=== PATIENT | male | born 1955 | race Caucasian/White ===

== ENCOUNTER 2020-04-10 13:53 | Inpatient (IN) | payer OTHER ==
--- NOTE | 2020-04-10 15:13 | RAD REPORT ---
EXAM DESCRIPTION: RAD - Chest Single View - 04/10/2020 2:40 pm CLINICAL HISTORY: MALAISE COMPARISON: None TECHNIQUE: AP portable chest image was obtained 04/10/2020 2:40 pm . FINDINGS: Extensive interstitial opacification is present with no comparison to establish baseline. This may all be chronic fibrotic change. Concurrent interstitial edema or infiltrate would be possibl e particularly in the left base. Medial retrocardiac left base is limited. Heart and vasculature are normal. No measurable pleural effusion and no pneumothorax. No acute bony abnormality seen. No acute aortic findings suspected. IMPRESSION: Extensive interstitial opacification pattern on a baseline examination. Current presentation could be all fibrosis, interstitial edema/ infiltrate or a combination.
[2020-04-10 16:09] LABS: Absolute Lymphocytes (CBC) 0.2 K/uL (0.7-4.9); Basophils % 0.1 % (0-1.3); Hematocrit 40.6 % (39.6-49.0); Lymphocytes % 1.8 % (15.3-44.8); MPV 9.7 fL (7.6-11.3); RBC Red Blood Cell Count 4.61 M/uL (4.33-5.43)
[2020-04-10 16:18] LABS: Protime INR 1.3
[2020-04-10 16:26] LABS: Urine Bacteria <20 /HPF (NONE SEEN); Urine RBC <5 /HPF (NONE SEEN)
[2020-04-10 17:01] LABS: Albumin 1.8 g/dL (3.4-5.0); Bilirubin Total 3.6 mg/dL (0.2-1.0); CKMB Creatine Kinase MB 1.6 ng/mL (0.3-3.6); Protein, Total 6.5 g/dL (6.4-8.2); Troponin (Emerg Dept Use Only) 0.22 ng/mL (0.0-0.045)
[2020-04-10 17:03] LABS: Urine Blood 1+ (NEG); Urine Glucose NEGATIVE (NEG); Urine Protein 1+ (NEG)
[2020-04-10 17:28] LABS: Phosphorus 1.8 mg/dL (2.5-4.9)
--- NOTE | 2020-04-10 17:36 | RAD REPORT ---
EXAM DESCRIPTION: CT - Chest For Pe Angio - 04/10/2020 5:22 pm CLINICAL HISTORY: SWELLING COMPARISON: Chest Single View dated 04/10/2020 TECHNIQUE: Dynamically enhanced 3 mm thick images of the chest were obtained during administration o f approximately 150mL Isovue 370 IV contrast. Coronal and oblique MIP reconstruction images were gene rated and reviewed. Exam utilizes a protocol to evaluate the pulmonary arterial tree. All CT scans are performed using dose optimization technique as appropriate and may include automated exposure control or mA/KV adjustment according to patient size. FINDINGS: No pulmonary emboli are identified. The aorta as imaged shows no acute or suspicious finding. Cardiomegaly present without pericardial ef fusion. Large bilateral pleural effusions are present. There is partial atelectasis of each lower lobe. Groun d-glass opacification in the upper lobes is most likely edema rather than infiltrate. No pneumothorax . No focal consolidation or mass the lung parenchyma seen. No mediastinal or hilar suspicious masses. No chest wall masses or abnormal axillary lymphadenopathy. IMPRESSION: No pulmonary emboli identified. Large bilateral pleural effusions with partial atelectasis of each lower lobe. Alveolar edema changes evident in each upper lobe.
--- NOTE | 2020-04-10 17:43 | RAD REPORT ---
EXAM DESCRIPTION: CT - Abdomen Pelvis W Contrast - 04/10/2020 5:22 pm CLINICAL HISTORY: SWELLING COMPARISON: No comparisons TECHNIQUE: Biphasic, helical CT imaging of the abdomen and pelvis was performed following 100 ml non -ionic IV contrast. No oral contrast given. All CT scans are performed using dose optimization technique as appropriate and may include automated exposure control or mA/KV adjustment according to patient size. FINDINGS: Pleural effusions and cardiomegaly detailed in separate CT chest report. No focal liver lesions identified. No portal vein abnormality seen. No pancreatic abnormality seen. N o focal splenic abnormality. Accessory splenic nodule is seen. Gallbladder is contracted. Gallstones can be occult. No biliary tree dilatation identified. Symmetric renal function is present. No pyelonephritis or solid mass lesion. Patient has multiple tasneem ateral renal cysts. Prominent distention of the urinary bladder is seen. There is bilateral hydroneph rosis the probably functional from the dilated bladder. No asymmetric bladder wall thickening or mass identified. No bladder calculi or obstructing ureteral calculi. No adrenal abnormalities. A large amount of fluid is present distending the stomach. No gastric wall mass identified. Mild enha ncement seen in nonthickened duodenal bulb and proximal C-loop. There is circumferential wall thicken ing throughout much of the small bowel. Loops of colon also show areas of nonspecific wall thickening . This is most pronounced in the sigmoid colon and proximal rectum. Distal rectum is distended. Moderately large volume of ascites is present. Omental thickening is present. Intraperitoneal free ai r is present. Quantity is not large. Source for the free air is not clearly evident from the examinat ion. No pneumatosis. No bulky lymphadenopathy. Patient has pronounced fluid retention in the subcuta neous fatty tissues. No suspicious bony findings. IMPRESSION: Intraperitoneal free air. There is no history of peritoneal dialysis or intraperitoneal procedure. No gastric ulceration or mass. No colon mass identified. Site of perforation is not identifiable. Large volume of ascites. There is prominent wall thickening throughout much of the bowel. This is mos t pronounced in the sigmoid colon. Bowel changes may be due to electrolyte imbalance and cardiac dysf unction. Enteritis is possible as well. Dilated urinary bladder without obstructing mass identified. There is resulting bilateral hydronephro sis that is likely functional. Renal function is symmetric. Anasarca
[2020-04-10] MEDS ORDERED: KCL 20 MEQ/100 mL IVPB 20 MEQ/100 ML BAG IV ONE (17:56)
[2020-04-10] MEDS ORDERED: D50W 50 ML IV ONE (17:58)
[2020-04-10] MEDS ORDERED: POTASSIUM PHOS IN 0.9 % NACL 15 MMOL/250 ML BAG IV ONE (18:00)
[2020-04-10] MEDS ORDERED: POTASSIUM CL IV SCH ×2 (18:00→19:00)
[2020-04-10] MEDS ORDERED: D5 NS IV SCH ×2 (18:00→19:00)
[2020-04-10 18:23] LABS: Anisocytosis 1+; Blood Morphology Comment NOTED (NOT SEEN); Platelet Estimate ADEQ; Poikilocytosis 1+; White Blood Cell Scan OK (OK)
[2020-04-10] MEDS ORDERED: LIDOCAINE VISCOUS 2% SOLN 15 ML UDC ONE ×2 (18:38→20:10)
[2020-04-10] MEDS ORDERED: PIPER/TAZO/NS 3.375gm 3.375 GM/100 ML BAG ONE (19:48)
--- NOTE | 2020-04-10 21:25 | EDPHYS ---
Physician Documentation [facility] Name: Juan Alarcon Age: 64 yrs Sex: Male : 1955 Arrival Date: 04/10/2020 Time: 13:55 Bed 23 Private MD: ED Physician Gregor Garcia HPI: 04/10 15:53 This 64 yrs old Male presents to ER via EMS with complaints of swelling, snw weakness. 15:53 Began swelling in lower extremities and belly 2 weeks ago, feels generally weak. Began snw having diarrhea. Pt has not been to PCP, no routine care. States he was told he had CHF by "on-line Doctor". Pt denies smoking, drinking, denies OTC or rx medications and has never had surgery. Pt denies allergies to medications. Onset: The symptoms/episode began/occurred gradually, 2 week(s) ago, and became worse and became persistent. Severity of symptoms: At their worst the symptoms were severe in the emergency department the symptoms are unchanged. It is unknown whether or not the patient has had similar symptoms in the past. The patient has not recently seen a physician, and does not have an established primary care provider. Historical: - Allergies: 14:02 No Known Allergies; ph - Home Meds: 14:02 None [Active]; ph - PMHx: 14:02 CHF; ph - Immunization history:: Flu vaccine is up to date. - Social history:: Smoking status: Patient denies any tobacco usage or history of. Patient/guardian denies using alcohol. ROS: 15:53 Constitutional: Negative for fever, chills, and weight loss, Eyes: Negative for injury, snw pain, redness, and discharge, ENT: Negative for injury, pain, and discharge, Neck: Negative for injury, pain, and swelling, Cardiovascular: Negative for chest pain, palpitations, and edema, Respiratory: Negative for shortness of breath, cough, wheezing, and pleuritic chest pain. 15:53 Back: Negative for injury and pain, : Negative for injury, bleeding, discharge, and swelling. 15:53 Skin: Negative for injury, rash, and discoloration, Neuro: Negative for headache, weakness, numbness, tingling, and seizure, Psych: Negative for depression, anxiety, suicide ideation, homicidal ideation, and hallucinations. 15:53 Abdomen/GI: Positive for diarrhea, abdominal distension. 15:53 MS/extremity: Positive for swelling. Exam: 15:49 Constitutional: This is a well developed, well nourished patient who is awake, alert, snw and in no acute distress. Head/Face: Normocephalic, atraumatic. Eyes: Pupils equal round and reactive to light, extra-ocular motions intact. Lids and lashes normal. Conjunctiva and sclera are non-icteric and not injected. Cornea within normal limits. Periorbital areas with no swelling, redness, or edema. ENT: Nares patent. No nasal discharge, no septal abnormalities noted. Tympanic membranes are normal and external auditory canals are clear. Oropharynx with no redness, swelling, or masses, exudates, or evidence of obstruction, uvula midline. Mucous membranes moist. Neck: Trachea midline, no thyromegaly or masses palpated, and no cervical lymphadenopathy. Supple, full range of motion without nuchal rigidity, or vertebral point tenderness. No Meningismus. Chest/axilla: Normal chest wall appearance and motion. Nontender with no deformity. No lesions are appreciated. Cardiovascular: Irregularly irregular rate and rhythm with a S1, S2 and S3. + gallop, murmur, no noted rubs. mild JVD. No pulse deficits. + lower ext edema Respiratory: Lungs have equal breath sounds bilaterally, clear to auscultation and percussion. No rales, rhonchi or wheezes noted. No increased work of breathing, no retractions or nasal flaring. Abdomen/GI: Soft, non-tender, with normal bowel sounds. Mild distension without tympany. No guarding or rebound. No evidence of tenderness throughout. Back: No spinal tenderness. No costovertebral tenderness. Full range of motion. Skin: Warm, dry with normal turgor. Ashen color with no areas of petechiae, areas to left lower leg of small skin avulsions, pedal edema with mild evidence of cellulitis to lower extremities. MS/ Extremity: Pulses equal, no cyanosis. Neurovascular intact. Full, normal range of motion. Neuro: Awake and alert, GCS 15, oriented to person, place, time, and situation. Cranial nerves II-XII grossly intact. Motor strength 5/5 in all extremities. Sensory grossly intact. Cerebellar exam normal. Normal gait. Psych: Awake, alert, with orientation to person, place and time. Behavior, mood, and affect are within normal limits. Vital Signs: 13:57 BP 156 / 83; Pulse 89; Resp 16; Pulse Ox 99% on R/A; Weight 52.16 kg; Height 5 ft. 8 ph in. (172.72 cm); Pain 0/10; 14:15 Temp 97.1(TE); ph 15:48 BP 138 / 82; Pulse 86; Resp 16; Pulse Ox 99% on R/A; mt 17:00 BP 157 / 90; Pulse 91; Resp 18; Pulse Ox 99% on R/A; ph 18:08 BP 171 / 92; Pulse 104; Resp 19; Temp 98.4(O); Pulse Ox 98% on R/A; mt 19:28 BP 131 / 88; Pulse 96; Resp 16; Pulse Ox 99% on R/A; ph 20:20 BP 133 / 93; Pulse 104; Resp 17 S; Pulse Ox 100% on R/A; ca1 21:20 BP 119 / 84; Pulse 98; Resp 17 S; Pulse Ox 100% on R/A; ca1 22:09 BP 126 / 71; Pulse 94; Resp 16 S; Pulse Ox 96% on R/A; ca1 13:57 Body Mass Index 17.49 (52.16 kg, 172.72 cm) ph MDM: 14:09 Patient medically screened. eron 17:48 ED course: MELD score = 15 pts, 6.0% 3 mo mortality. snw 18:00 Data reviewed: vital signs, nurses notes. Data interpreted: Pulse oximetry: on room air snw is 99 %. Interpretation: normal. Counseling: I had a detailed discussion with the patient and/or guardian regarding: the historical points, exam findings, and any diagnostic results supporting the discharge/admit diagnosis, the presence of at least one elevated blood pressure reading (>120/80) during this emergency department visit, lab results, radiology results, the need to transfer to another facility, for higher level of care, [facility] does not immediately have the required specialist. Response to treatment: There is no appreciated change of the patient's symptoms at this time. 19:13 Physician consultation: Alirio Key MD was called at 19:13, was contacted at 19:13, snw regarding consult, patient's condition, need to come to ED to see patient, and will see patient in ED, shortly. 19:50 Physician consultation: Alirio Key MD in the emergency department to see patient at snw 19:40. 20:08 Physician consultation: Dr Black was called at 19:30, was contacted at 20:09, regarding snw regarding transfer, to [facility]. Dr. Black and ORLANDO Chase do not feel pt needs ICU at this time. Appropriate level of care decided as IMU. [facility] will call back.. 21:07 ED course: attempts to transfer to four facilities has failed. Will admit here. Cesar Perez NP given report. Admission will go to Dr. Zheng.. 04/10 13:56 Order name: glucometer results - FOR PT WITH NO ID; Complete Time: 14:25 mt 04/10 14:27 Order name: Urine Microscopic Only; Complete Time: 16:27 snw 04/10 14:27 Order name: Urine Culture [facility] 04/10 15:28 Order name: T\\T\\S; Complete Time: 17:26 snw 04/10 15:28 Order name: D-Dimer; Complete Time: 16:29 snw 04/10 15:28 Order name: C-Reactive Protein; Complete Time: 17:03 snw 04/10 15:28 Order name: Amylase, Serum; Complete Time: 17:03 snw 04/10 15:28 Order name: Basic Metabolic Panel; Complete Time: 17:03 w 04/10 15:28 Order name: Blood Culture Adult (2) [facility] 04/10 15:28 Order name: CBC with Diff; Complete Time: 18:25 snw 04/10 15:28 Order name: Ckmb; Complete Time: 17:03 snw 04/10 15:28 Order name: CPK; Complete Time: 17:03 snw 04/10 15:28 Order name: Lactate; Complete Time: 16:41 snw 04/10 15:28 Order name: LFT's; Complete Time: 17:03 snw 04/10 15:28 Order name: Lipase; Complete Time: 17:03 w 04/10 15:28 Order name: Procalcitonin; Complete Time: 17:29 snw 04/10 15:28 Order name: Protime (+inr); Complete Time: 16:29 snw 04/10 15:28 Order name: Ptt, Activated; Complete Time: 16:29 snw 04/10 15:28 Order name: Troponin (emerg Dept Use Only); Complete Time: 17:03 snw 04/10 15:35 Order name: Urine Dipstick--Ancillary (enter results); Complete Time: 17:03 bd 04/10 17:08 Order name: Add On-Lab bd 04/10 17:12 Order name: Phosphorus; Complete Time: 22:26 EDMS 04/10 17:12 Order name: LDL, Direct; Complete Time: 22:26 EDMS 04/10 17:12 Order name: Alpha Fetoprotein-Tumor Marker EDMS 04/10 17:32 Order name: Add On-Lab snw 04/10 17:33 Order name: Lactic Dehydrogenase; Complete Time: 22:26 EDMS 04/10 17:57 Order name: SARS-COV-2 RT PCR; Complete Time: 17:59 EDMS 04/10 14:27 Order name: Urine Dipstick-Ancillary (obtain specimen); Complete Time: 15:31 snw 04/10 14:27 Order name: Chest Single View XRAY; Complete Time: 15:19 snw 04/10 15:28 Order name: Accucheck; Complete Time: 15:30 snw 04/10 16:29 Order name: CT Chest For PE Angio; Complete Time: 17:38 snw 04/10 16:29 Order name: CT Abd/Pelvis - IV Contrast Only; Complete Time: 17:50 snw 04/10 18:23 Order name: CBC Smear Scan; Complete Time: 18:25 EDMS 04/10 18:34 Order name: ABO/RH no charge; Complete Time: 18:34 EDMS 04/10 22:19 Order name: Magnesium; Complete Time: 22:26 EDMS 04/11 00:01 Order name: Glucose, Ancillary Testing; Complete Time: 00:08 EDMS 04/11 00:16 Order name: Troponin I EDMS 04/11 02:10 Order name: Glucose, Ancillary Testing EDMS 04/11 03:42 Order name: Protime (+INR) EDMS 04/11 03:51 Order name: CBC with Automated Diff EDMS 04/11 04:10 Order name: Comprehensive Metabolic Panel EDMS 04/11 04:10 Order name: Phosphorus EDMS 04/11 04:10 Order name: Magnesium EDKS 04/11 04:31 Order name: Glucose, Ancillary Testing EDKS 04/11 08:17 Order name: Glucose, Ancillary Testing EDKS 04/11 09:35 Order name: US EDKS 04/11 09:47 Order name: T4 Free EDKS 04/11 09:47 Order name: Thyroid Stimulating Hormone EDKS 04/11 10:04 Order name: Transferrin Sat/Iron Binding EDKS 04/11 10:04 Order name: Ferritin EDKS 04/11 10:05 Order name: Vitamin B12 Level EDKS 04/11 10:28 Order name: Glucose, Ancillary Testing EDKS 04/11 12:20 Order name: Glucose, Ancillary Testing EDKS 04/11 12:26 Order name: Fecal Leukocyte Stain EDKS 04/10 15:28 Order name: Cardiac monitoring; Complete Time: 15:31 snw 04/10 15:28 Order name: EKG - Nurse/Tech; Complete Time: 15:45 snw 04/10 15:28 Order name: IV Saline Lock - Large Bore; Complete Time: 15:31 snw 04/10 15:28 Order name: Labs collected and sent; Complete Time: 15:31 snw 04/10 15:28 Order name: O2 Per Protocol; Complete Time: 15:31 snw 04/10 15:28 Order name: O2 Sat Monitoring; Complete Time: 15:31 snw 04/10 17:28 Order name: Labs - recollect needed: collect tiger top blood tube; Complete Time: 17:37 bd 04/10 18:01 Order name: VS Recheck; Complete Time: 18:13 snw 04/10 18:01 Order name: Misc. Order: get pt in a gown please; Complete Time: 18:07 snw 04/10 18:01 Order name: NPO; Complete Time: 18:07 snw 04/10 18:11 Order name: Metzger; Complete Time: 20:19 snw 04/10 18:12 Order name: NG Tube; Complete Time: 20:19 snw EC:45 Rate is 100 beats/min. Rhythm is irregularly irregular. QRS [place] is Normal. QRS snw interval is prolonged. ST Segment is depressed in leads V5, V6. Clinical impression: Atrial Fibrillation. Administered Medications: 17:40 Drug: D50W 25 ml Route: IVP; Site: left antecubital; ph 19:29 Follow up: Response: No adverse reaction ph 18:47 Drug: D5-NS with KCL 40 mEq/L 1000 ml Route: IV; Rate: 250 ml/hr; Site: left ph antecubital; 21:55 Follow up: Response: No adverse reaction; IV Status: Infusion continued upon admission ca1 23:00 Follow up: Response: No adverse reaction; IV Status: Completed infusion; IV Intake: rr5 1000ml 18:47 Drug: Potassium Phosphate 15 mmol Route: IV; Rate: calculated rate; Site: right forearm;ph 21:56 Follow up: Response: No adverse reaction; IV Status: Infusion continued upon admission ca1 18:48 Drug: Potassium Chloride 20 mEq Route: IV; Rate: calculated rate; Site: left ph antecubital; 21:00 Follow up: Response: No adverse reaction; IV Status: Completed infusion ca1 19:48 Drug: Zosyn 3.375 grams Route: IVPB; Infused Over: 60 mins; Site: right forearm; ca1 20:50 Follow up: Response: No adverse reaction; IV Status: Completed infusion ca1 Disposition: 04/12 10:55 Co-signature as Attending Physician, Gregor Garcia MD I agree with the assessment and [facility] plan of care. Disposition: 04/10/20 21:24 Hospitalization ordered by Truong Zheng for Inpatient Admission. Preliminary diagnosis are Hypoglycemia, unspecified, Hypokalemia, Hypophosphatemia, Hypoalbuminemia, Liver disease, unspecified, Small peritoneal air, Pleural effusion in conditions classified elsewhere. - Bed requested for [facility] ER HOLD. - Status is Inpatient Admission. iw - Condition is Fair. - Problem is new. - Symptoms are unchanged. Signatures: Dispatcher [employer] EDMS [place] Rizzo Corey, MD MD cha Waters, Shelly, COMMUNICATION ASSISTANT-C COMMUNICATION ASSISTANT-Csnw Karen Sullivan RN RN iw Attema, Lee, FNP-C COMMUNICATION ASSISTANT-Cla1 Angy Jones RN RN ph Garcia, Cindy, RN RN Sandi Rush RN RN ca1 Roque, Raymond RN [id number] Corrections: (The following items were deleted from the chart) 04/10 14:28 14:27 UA MICROSCOPIC+U.LAB.BRZ ordered. EDMS EDMS 15:31 15:28 BILIRUBIN, DIRECT+C.LAB.BRZ ordered. EDKS EDMS 16:58 14:27 CORONAVIRUS+MR.LAB.BRZ ordered. EDKS EDMS 21:25 21:07 ED course: attempts to transfer to four facilities has failed. Will admit here. snw Cesar Perez NP given report. Admission will go to Dr. Leyva.. [facility] 21:25 21:24 Hospitalization Ordered by Yevgeniy Leyva for Inpatient Admission. Preliminary sn diagnosis is Hypoglycemia, unspecified; Hypokalemia; Hypophosphatemia; Hypoalbuminemia; Liver disease, unspecified; Small peritoneal air; Pleural effusion in conditions classified elsewhere. Bed requested for Telemetry/MedSurg (Inpatient). Status is Inpatient Admission. Condition is Fair. Problem is new. Symptoms are unchanged. [facility] 21:37 21:25 04/10/2020 21:24 Hospitalization Ordered by Truong Zheng DO for Inpatient snw Admission. Preliminary diagnosis is Hypoglycemia, unspecified; Hypokalemia; Hypophosphatemia; Hypoalbuminemia; Liver disease, unspecified; Small peritoneal air; Pleural effusion in conditions classified elsewhere. Bed requested for Telemetry/MedSurg (Inpatient). Status is Inpatient Admission. Condition is Fair. Problem is new. Symptoms are unchanged. [facility] 21:59 21:37 04/10/2020 21:24 Hospitalization Ordered by Truong Zheng DO for Inpatient cg Admission. Preliminary diagnosis is Hypoglycemia, unspecified; Hypokalemia; Hypophosphatemia; Hypoalbuminemia; Liver disease, unspecified; Small peritoneal air; Pleural effusion in conditions classified elsewhere. Bed requested for Intensive Care Unit. Status is Inpatient Admission. Condition is Fair. Problem is new. Symptoms are unchanged. [facility] 04/11 13:18 04/10 21:59 04/10/2020 21:24 Hospitalization Ordered by Truong Zheng DO for Inpatient iw Admission. Preliminary diagnosis is Hypoglycemia, unspecified; Hypokalemia; Hypophosphatemia; Hypoalbuminemia; Liver disease, unspecified; Small peritoneal air; Pleural effusion in conditions classified elsewhere. Bed requested for [facility] ER HOLD. Status is Inpatient Admission. Condition is Fair. Problem is new. Symptoms are unchanged.
--- NOTE | 2020-04-10 21:25 | ER ---
Nurse's Notes [facility] Name: Juan Alarcon Age: 64 yrs Sex: Male : 1955 Arrival Date: 04/10/2020 Time: 13:55 Bed 23 Private MD: Diagnosis: Hypoglycemia, unspecified;Hypokalemia;Hypophosphatemia;Hypoalbuminemia;Liver disease, unspecified;Small peritoneal air;Pleural effusion in conditions classified elsewhere Presentation: 04/10 13:57 Chief complaint: EMS states: EMS called out for general weakness, pt reports that he ph has had diarrhea since Friday, felt weak and slid to floor, denies falling or injury, initial BGL 54, 15 G oral glucose giiven w/ no change, IV started and approx 125 mL D10 given, BGL upon arrival to ED 76, pt denies fever, abdominal pain, N/V or bloody stools. Coronavirus screen: Client denies travel out of the [place] in the last 14 days. diarrhea, fatigue, Client presents with at least one sign or symptom that may indicate coronavirus-19. Standard/surgical mask placed on the client. Ebola Screen: No symptoms or risks identified at this time. Initial Sepsis Screen: Does the patient meet any 2 criteria? No. Patient's initial sepsis screen is negative. Does the patient have a suspected source of infection? No. Patient's initial sepsis screen is negative. Risk Assessment: Do you want to hurt yourself or someone else? Patient reports no desire to harm self or others. Onset of symptoms was April 10, 2020. 13:57 Method Of Arrival: EMS: [facility] ph 13:57 Acuity: ETTA 3 ph 17:37 Acuity: ETTA 2 ph Historical: - Allergies: 14:02 No Known Allergies; ph - Home Meds: 14:02 None [Active]; ph - PMHx: 14:02 CHF; ph - Immunization history:: Flu vaccine is up to date. - Social history:: Smoking status: Patient denies any tobacco usage or history of. Patient/guardian denies using alcohol. Screenin:02 Abuse screen: Denies threats or abuse. Denies injuries from another. Nutritional ph screening: No deficits noted. Tuberculosis screening: No symptoms or risk factors identified. Fall Risk No fall in past 12 months (0 pts). No secondary diagnosis (0 pts). IV access (20 points). Ambulatory Aid- Crutches/Cane/Walker (15 pts). Gait- Weak (10 pts.). Mental Status- Oriented to own ability (0 pts). Total Leone Fall Scale indicates High Risk Score (45 or more points). Fall prevention measures have been instituted. Side Rails Up X 2 Placed Close to Nursing Station Frequent Obs/Assessments Occuring As available patient and family educated on Fall Prevention Program and Strategies. Assessment: 14:30 General: Appears in no apparent distress. comfortable, slender, unkempt, malnourished, ph Behavior is calm, cooperative, appropriate for age, Denies fever. Pain: Denies pain. Neuro: Level of Consciousness is awake, alert, obeys commands, Oriented to person, place, time, situation, Reports weakness. Cardiovascular: Capillary refill < 3 seconds in bilateral fingers Patient's skin is warm and dry. Edema is 1+ to left ankle and right ankle. Respiratory: Airway is patent Respiratory effort is even, unlabored, Respiratory pattern is regular, symmetrical, Denies cough, shortness of breath. GI: Reports diarrhea, Patient currently denies abdominal pain, bloody stool, nausea, vomiting. : Reports testicular swelling. Derm: Skin is fragile, is thin, Skin is jaundiced, multiple sores and bruises noted to bilateral legs and arms. Musculoskeletal: Circulation, motion, and sensation intact. Range of motion: intact in all extremities. 16:05 Reassessment: Patient appears in no apparent distress at this time. Patient and/or ph family updated on plan of care and expected duration. Pain level reassessed. Patient is alert, oriented x 3, equal unlabored respirations, skin warm/dry/pink. Pt resting quietly, awaiting lab and radiology results. 17:00 Reassessment: Patient appears in no apparent distress at this time. Patient and/or ph family updated on plan of care and expected duration. Pain level reassessed. Patient is alert, oriented x 3, equal unlabored respirations, skin warm/dry/pink. Reassessment: Patient denies pain at this time. 18:00 Reassessment: Patient appears in no apparent distress at this time. Patient and/or ph family updated on plan of care and expected duration. Pain level reassessed. Patient is alert, oriented x 3, equal unlabored respirations, skin warm/dry/pink. Pt resting quietly, denies pain or nausea, awaiting IV medications from lab. 19:31 Reassessment: Patient appears in no apparent distress at this time. Patient and/or ca1 family updated on plan of care and expected duration. Pain level reassessed. Patient is alert, oriented x 3, equal unlabored respirations, skin warm/dry/pink. 20:20 Reassessment: Patient appears in no apparent distress at this time. Patient and/or ca1 family updated on plan of care and expected duration. Pain level reassessed. Patient is alert, oriented x 3, equal unlabored respirations, skin warm/dry/pink. 21:20 Reassessment: Patient appears in no apparent distress at this time. Patient and/or ca1 family updated on plan of care and expected duration. Pain level reassessed. Patient is alert, oriented x 3, equal unlabored respirations, skin warm/dry/pink. 22:09 Reassessment: Patient appears in no apparent distress at this time. Patient is alert, ca1 oriented x 3, equal unlabored respirations, skin warm/dry/pink. Vital Signs: 13:57 BP 156 / 83; Pulse 89; Resp 16; Pulse Ox 99% on R/A; Weight 52.16 kg; Height 5 ft. 8 ph in. (172.72 cm); Pain 0/10; 14:15 Temp 97.1(TE); ph 15:48 BP 138 / 82; Pulse 86; Resp 16; Pulse Ox 99% on R/A; mt 17:00 BP 157 / 90; Pulse 91; Resp 18; Pulse Ox 99% on R/A; ph 18:08 BP 171 / 92; Pulse 104; Resp 19; Temp 98.4(O); Pulse Ox 98% on R/A; mt 19:28 BP 131 / 88; Pulse 96; Resp 16; Pulse Ox 99% on R/A; ph 20:20 BP 133 / 93; Pulse 104; Resp 17 S; Pulse Ox 100% on R/A; ca1 21:20 BP 119 / 84; Pulse 98; Resp 17 S; Pulse Ox 100% on R/A; ca1 22:09 BP 126 / 71; Pulse 94; Resp 16 S; Pulse Ox 96% on R/A; ca1 13:57 Body Mass Index 17.49 (52.16 kg, 172.72 cm) ph ED Course: 13:55 Patient arrived in ED. ph 13:57 Angy Jones, RN is Primary Nurse. ph 13:57 Blood Glucose: 76. mt 14:01 Triage completed. ph 14:02 Arm band placed on Patient placed in an exam room, on a stretcher. ph 14:03 Patient has correct armband on for positive identification. Bed in low position. Call ph light in reach. Side rails up X 1. Pulse ox on. NIBP on. Door closed. Noise minimized. Warm blanket given. 14:09 Teressa Samaniego FNP-C is PHCP. snw 14:09 Gregor Garcia MD is Attending Physician. snw 14:41 Chest Single View XRAY In Process Unspecified. EDMS 17:22 CT Chest For PE Angio In Process Unspecified. EDMS 17:22 CT Abd/Pelvis - IV Contrast Only In Process Unspecified. EDMS 17:51 initiated transfer to [facility]. bd 17:54 Inserted saline lock: 20 gauge in right forearm, using aseptic technique. Blood mt collected. 18:22 pt denied at [facility] due to no icu beds, per Arash Aguilar. bd 18:32 initiated transfer to [facility]. talked to Nisa Nino. bd 18:48 pt denied at [facility], due to no icu beds available per Nisa Nino. bd 18:52 Spoke with Cornelius to see if they could check at [facility]. He stated the tt3 services were only offered at the [facility] but would still call the [facility]. 18:56 Initiated transfer at [facility]. Stated they would check for beds and call back. tt3 19:32 [facility] called back to see why the pt needed ICU specifically. Checked with provider tt3 and explained reasoning to technical support coordinator. Stated she would pass the information along and call back. 19:50 Transfer Center Coordinator from [facility] called back to speak with jameson Larson, regarding the transfer request. 20:00 Coud inserted, using sterile technique, 16 Fr. Returned cloudy urine. To gravity ca1 drainage. by SHANE Wan Patient tolerated well. 20:19 NGT: inserted [address] of air over stomach, verified return of gastric ca1 contents, to intermittent suction. Returned gastric contents. Patient tolerated well. 21:18 Yevgeniy Leyva is Hospitalizing Provider. snw 21:24 Hospitalizing Provider role handed off by Yevgeniy Leyva snw 21:24 Truong Zheng DO is Hospitalizing Provider. snw 22:08 No provider procedures requiring assistance completed. Patient admitted, IV remains in ca1 place. 22:09 Report given to SHANE Wan. ca1 22:50 Primary Nurse role handed off by Angy Jones RN dm5 Administered Medications: 17:40 Drug: D50W 25 ml Route: IVP; Site: left antecubital; ph 19:29 Follow up: Response: No adverse reaction ph 18:47 Drug: D5-NS with KCL 40 mEq/L 1000 ml Route: IV; Rate: 250 ml/hr; Site: left ph antecubital; 21:55 Follow up: Response: No adverse reaction; IV Status: Infusion continued upon admission ca1 23:00 Follow up: Response: No adverse reaction; IV Status: Completed infusion; IV Intake: rr5 1000ml 18:47 Drug: Potassium Phosphate 15 mmol Route: IV; Rate: calculated rate; Site: right forearm;ph 21:56 Follow up: Response: No adverse reaction; IV Status: Infusion continued upon admission ca1 18:48 Drug: Potassium Chloride 20 mEq Route: IV; Rate: calculated rate; Site: left ph antecubital; 21:00 Follow up: Response: No adverse reaction; IV Status: Completed infusion ca1 19:48 Drug: Zosyn 3.375 grams Route: IVPB; Infused Over: 60 mins; Site: right forearm; ca1 20:50 Follow up: Response: No adverse reaction; IV Status: Completed infusion ca1 Intake: 23:00 IV: 1000ml; Total: 1000ml. rr5 Output: 20:27 Urine: 1000ml (Metzger); Total: 1000ml. ca1 22:14 Gastric: 200ml (NGT); Total: 1200ml. ca1 Outcome: 21:24 Decision to Hospitalize by Provider. snw 22:47 Admitted to ER Hold. Please see [facility] for further documentation. rr5 22:47 Condition: stable 22:47 Instructed on the need for admit. 04/11 13:18 Patient left the ED. iw Signatures: Dispatcher [employer] [facility] Tenorio Deana RN RN dm5 Samaniego, Teressa, TECHNICAL INSTRUCTOR-C TECHNICAL INSTRUCTOR-Csnw Karen Sullivan RN RN iw Angy Jones RN RN Jd, Baxter Savage Solano RN RN rr5 Sandi Rush RN RN ca1 Bernardino Bello tt3 Corrections: (The following items were deleted from the chart) 04/10 20:27 20:00 Coud inserted, using sterile technique, 16 Fr. Returned bloody urine. To gravity ca1 drainage. by SHANE Wan Patient tolerated well. ca1
--- NOTE | 2020-04-10 22:07 | P.HP ---
Certification for Inpatient Patient admitted to: Inpatient With expected LOS: >2 Midnights Patient will require the following post-hospital care: None Practitioner: I am a practitioner with admitting privileges, knowledge of patient current condition, hospital course, and medical plan of care. Services: Services provided to patient in accordance with Admission requirements found in Title 42 Section 412.3 of the Code of Federal Regulations <Cesar Perez - Last Filed: 04/10/20 21:58> Patient History Date of Service: 04/10/20 Primary Care Provider: None Reason for admission: Intraperitoneal free air History of Present Illness: 64-year-old male with questionable history of CHF presents emergency department for generalized weakness and diarrhea. Patient reports that since Friday he has had a significant amount of frequent diarrhea without mucus blood or pus. Patient reports today and he is feeling extremely weak and for that reason presented to the emergency department. Patient also noted that he is retaining fluid, states that this happens intermittently for the last 3 years and he had a telemedicine visit with physician who believed he had CHF. Patient reports intermittently taking Lasix at home for retention of fluid. Patient was worked up in the emergency department and found to have significant electrolyte abnormalities including potassium 2.0 phosphorus level 1.8, sodium 138. Magnesium level pending. Patient with some renal insufficiency creatinine 1.46 GFR 48. AST and ALT normal but total bili is 3.6 and direct bili is 3.0. Pro calcitonin elevated at 4.41 white blood cell count was 12.8. Troponin initially 0.22 D-dimer was elevated, provider ordered CT PE protocol and abdominal exam with contrast. PE protocol revealed large bilateral pleural effusions with partial atelectasis of each lower lobe, a CT abdomen pelvis revealed intraperitoneal free air with no identified site of perforation. Large volume ascites with prominent wall thickening throughout much of the bowel wall most pronounced in the sigmoid colon, radiologist suggest this could be related to electrolyte imbalance and cardiac dysfunction although enteritis as possible. General surgery and was called for intraperitoneal free air. Patient denies now or ever having any abdominal pain, on exam patient without any abdominal tenderness whatsoever. General surgery examined patient and reviewed CT scan, states patient does not need emergent surgical intervention and to be followed w ith serial abdominal exams. Due to severe electrolyte abnormalities and intraperitoneal free air patient will require ICU or IMU level of care, due to lack of beds transfer was initiated, emergency department attempted transferred to [facility], at [facility], Suk[facility] Jones who were all at capacity for ICU/ IMU and declined transfer. Case was discussed again with General Surgery and hospitalist attending, patient will be admitted to the intensive care unit for close monitoring and serial abdominal exams. When I saw the patient in the emergency department he was awake, alert, oriented x3. Patient with no abdominal pain or tenderness on exam. Patient does not appear septic at this time, lactic acid 1.6. Patient normotensive at this time. Will admit to the ICU for close monitoring and serial abdominal exams. - Past Medical/Surgical History -: CHF? 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 - Family History Family History: Reviewed- Non-Contributory - Social History Smoking Status: Never smoker Alcohol use: No CD- Drugs: No Caffeine use: Yes Place of Residence: Home <Cesar Perez - Last Filed: 04/10/20 21:58> Date of Service: 04/11/20 - Past Medical/Surgical History Diabetic: No <Truong Zheng - Last Filed: 04/11/20 08:22> Review of Systems General: Weakness, Malaise Cardiovascular: Edema, As per HPI <Cesar Perez - Last Filed: 04/10/20 21:58> Physical Examination - Physical Exam General: Alert, In no apparent distress, Oriented x3 HEENT: Atraumatic, Normocephalic, Other (Mucous membranes dry) Neck: Supple Respiratory: Diminished (Bilaterally), Dull, Crackles/rales (Bilateral) Cardiovascular: Normal S1 S2, Edema (Pitting edema including bilateral lower extremities all the way up including the level of the scrotum, edema of the abdominal wall), Irregular heart rate/rhythm (Mild tachycardia rate 105) Capillary refill: <2 Seconds Gastrointestinal: Normal bowel sounds, No tenderness, No masses, No rebound, No guarding, Ascites Musculoskeletal: Erythema (Erythema noted to the left knee), Tenderness (Tenderness left knee), Warmth (Left knee) Integumentary: No significant lesion Neurological: Normal speech, Normal strength at 5/5 x4 extr, Normal tone, Sensation intact Urinary: Metzger catheter - Studies Laboratory Data (last 24 hrs) 04/10/20 15:50: Phosphorus 1.8 L, LDL Cholesterol Direct 71 L 04/10/20 15:50: WBC 12.8 H, Hgb 13.5 L, Hct 40.6, Plt Count 224 04/10/20 15:50: Sodium 138, Potassium 2.0 L*, BUN 21 H, Creatinine 1.46 H, Glucose 58 L, Total Bilirubin 3.6 H, AST 21, ALT 8 L, Alkaline Phosphatase 173 H, Amylase 5 L, Lipase 20 L 04/10/20 15:50: PT 15.3 H, INR 1.30, APTT 30.7 <Cesar Perez - Last Filed: 04/10/20 21:58> - Studies Laboratory Data (last 24 hrs) 04/10/20 15:50: Phosphorus 1.8 L, Magnesium 2.4, LDL Cholesterol Direct 71 L 04/10/20 15:50: WBC 12.8 H, Hgb 13.5 L, Hct 40.6, Plt Count 224 04/10/20 15:50: Sodium 138, Potassium 2.0 L*, BUN 21 H, Creatinine 1.46 H, Glucose 58 L, Total Bilirubin 3.6 H, AST 21, ALT 8 L, Alkaline Phosphatase 173 H, Amylase 5 L, Lipase 20 L 04/10/20 15:50: PT 15.3 H, INR 1.30, APTT 30.7 <Truong Zheng - Last Filed: 04/11/20 08:22> Assessment and Plan - Plan Assessment Intraperitoneal free air Suspected acute on chronic CHF with volume overload and elevated troponin- unknown EF Elevated total and direct bili levels Acute kidney injury Hypoalbuminemia Hypophosphatemia Hypokalemia Plan Intraperitoneal free air: General surgery consulted, has seen and examined the patient. NG tube in place, NPO. Continue with serial abdominal exams, admitted to the intensive care unit. Continue Zosyn. DVT prophylaxis with SCDs. Appreciate further input from general surgery. Suspected acute on chronic CHF with volume overload and elevated troponin- unknown EF: Cardiology consult in place. Continue with albumin and Lasix at this time due to anasarca and hypoalbuminemia. Will trend troponins, cardiology consult in place. Elevated total and direct bili levels: Daily labs, patient may have some underlying liver pathology, possibly malignancy. Acute kidney injury: No baseline labs available, no reported history of chronic kidney disease. Continue with albumin/Lasix, nephrology consult in place. Hypoalbuminemia: Will give 25% albumin 150 mL x1 for now. Additional doses as needed. Daily labs. Hypophosphatemia: Phosphorus protocol in place Hypokalemia: Potassium protocol in place Discharge Plan: Home Plan to discharge in: Greater than 2 days - Advance Directives Does patient have a Living Will: No Does patient have a Durable POA for Healthcare: No - Code Status/Comfort Care Code Status Assessed: Yes (Full code) Critical Care: No Time Spent Managing Pts Care (In Minutes): 55 <Cesar Perez - Last Filed: 04/10/20 21:58> - Plan Case discussed at length with nurse practitioner. Agree with evaluation, assessment and plan of care. Patient with NG tube in place. Patient NPO. Will discuss further with surgery. Will also discuss further with pulmonology, cardiology and nephrology. Continue electrolyte IV Lasix. Please see progress note for details. <Truong Zheng - Last Filed: 04/11/20 08:22>
[2020-04-10 22:19] LABS: Magnesium 2.4 mg/dL (1.8-2.4)
[2020-04-10] MEDS ORDERED: ONDANSETRON 4 MG/2 ML VIAL IV PRN (22:22)
[2020-04-10] MEDS ORDERED: ALBUMIN HUMAN 25% 150 ML IV ONE (22:22)
[2020-04-10] MEDS ORDERED: GLUCAGON 1 MG/VIAL IV PRN (22:22)
[2020-04-10] MEDS ORDERED: MORPHINE 2 MG/ML SYR IV PRN (22:22)
[2020-04-10] MEDS ORDERED: FUROSEMIDE 40 MG/4 ML VIAL ONE (22:40)
[2020-04-10] MEDS ORDERED: ALBUMIN HUMAN 25% 100 ML IV ONE (22:40)
[2020-04-10] MEDS: FUROSEMIDE 40 MG/4 ML VIAL IV SCH (22:45)
[2020-04-10] MEDS ORDERED: ALBUMIN HUMAN 25% 50 ML IV ONE (23:42)
[2020-04-11] MEDS ORDERED: PIPER/TAZO/NS 3.375gm 3.375 GM/100 ML BAG IVPB SCH (01:00)
[2020-04-11 01:22] VITALS: BMI 17.4
[2020-04-11] MEDS ORDERED: PIPER/TAZO/NS 2.25gm 2.25 GM/50 ML BAG IV SCH ×2 (02:00→07:30)
[2020-04-11 03:41] LABS: Protime INR 1.43
[2020-04-11 03:43] LABS: MPV 9.6 fL (7.6-11.3)
[2020-04-11 03:47] LABS: Absolute Lymphocytes (CBC) 0.2 K/uL (0.7-4.9); Basophils % 0.3 % (0-1.3); Hematocrit 33.9 % (39.6-49.0); Lymphocytes % 1.6 % (15.3-44.8)
[2020-04-11 04:09] LABS: Albumin 2.1 g/dL (3.4-5.0); Bilirubin Total 3.2 mg/dL (0.2-1.0); Magnesium 2.2 mg/dL (1.8-2.4); Phosphorus 2.6 mg/dL (2.5-4.9); Potassium 2.1 mmol/L (3.5-5.1); Protein, Total 5.7 g/dL (6.4-8.2)
[2020-04-11] MEDS: KCL 20 MEQ/100 mL IVPB 20 MEQ/100 ML BAG IV SCH ×6 (06:02→20:26)
[2020-04-11] MEDS ORDERED: KCL 20 MEQ/100 mL IVPB 20 MEQ/100 ML BAG IV ONE ×5 (06:19→20:38)
[2020-04-11] MEDS ORDERED: NA CHLORIDE 0.9% 250 ML ONE (06:22)
--- NOTE | 2020-04-11 08:14 | P.PN ---
Subjective Date of Service: 04/11/20 Primary Care Provider: None Chief Complaint: Intraperitoneal free air Subjective: Other (Patient stable. Patient feels better. Diarrhea still noted.) Physical Examination - Vital Signs Temperature: 97.5 F Blood Pressure: 115/65 Pulse: 84 Respirations: 16 Pulse Ox (%): 100 - Physical Exam General: Alert, In no apparent distress, Oriented x3, Cooperative, Cachectic, Other (Muscle wasting to the face, torso and extremities. Patient appears malnourished.) HEENT: Atraumatic Neck: Supple Respiratory: Other (Diminished to the bases) Cardiovascular: Irregular heart rate/rhythm (Rate controlled) Gastrointestinal: Hypoactive, No tenderness, No masses, No rebound, No guarding, Distended (Some distention noted but soft) Musculoskeletal: No tenderness, No warmth Integumentary: Tenderness/swelling (Edema to the lower extremities appears improved.) Neurological: Normal speech, Normal strength at 5/5 x4 extr, Normal tone, Normal affect - Studies Laboratory Data (last 24 hrs) 04/10/20 15:50: Phosphorus 1.8 L, Magnesium 2.4, LDL Cholesterol Direct 71 L 04/10/20 15:50: WBC 12.8 H, Hgb 13.5 L, Hct 40.6, Plt Count 224 04/10/20 15:50: Sodium 138, Potassium 2.0 L*, BUN 21 H, Creatinine 1.46 H, Glucose 58 L, Total Bilirubin 3.6 H, AST 21, ALT 8 L, Alkaline Phosphatase 173 H, Amylase 5 L, Lipase 20 L 04/10/20 15:50: PT 15.3 H, INR 1.30, APTT 30.7 Medications List Reviewed: Yes Assessment & Plan Discharge Plan: Home Plan to discharge in: Greater than 2 days Physician Review Additional Text: Assessment Diarrhea, weakness, ascites secondary to colitis complicated with intraperitoneal free air noted on CT scan without identifiable perforation etiology unknown need to rule out cancer, liver disease, other Large bilateral pleural effusion with edema to the lower extremity and ascites suspect acute on chronic systolic CHF Atrial fibrillation rate controlled Elevated troponin likely related to above, ischemic demand Elevated bilirubin suspect underlying liver disease Acute renal injury with electrolyte abnormalities including hypokalemia, hypophosphatemia, hypoalbumenia Moderate protein malnutrition Anemia likely of chronic disease Plan: Diarrhea, weakness, ascites secondary to colitis complicated with intraperitoneal free air noted on CT scan without identifiable perforation etiology unknown need to rule out cancer, liver disease, other: Patient stable at this time. Patient was to be transferred last night to high-level facility to further evaluate but no beds available and multiple hospitals. Patient was seen by surgery last night. No intervention needed at this time. Blood, urine, stool cultures obtained. Patient started on IV Zosyn to cover for possible infection. Inflammatories markers elevated. Will obtain FELY, HIV, hepatitis panel, tsh, and other electrolytes. COVID 19 test negative. Will discuss further with surgery. No abdominal pain noted at this time. Will obtain abdominal ultrasound and echocardiogram to further evaluate. Cardiology, nephrology and pulmonology also consulted to address other medical issues. Continue IV Lasix. Will continue to monitor and assess. Large bilateral pleural effusion with edema to the lower extremity and ascites suspect acute on chronic systolic CHF: Continue IV Lasix. Edema to the lower extremities improved. Patient not requiring any oxygen. Overall stable. Await echocardiogram. Will discuss further with pulmonology and Cardiology. Atrial fibrillation rate controlled: Will check EKG. Will discuss further with cardiology. Patient may require anti coagulation therapy but will discuss with Cardiology 1st. Will start with DVT prophylaxis. Elevated troponin likely related to above, ischemic demand: Will obtain echocardiogram. Will discuss with cardiology. Elevated bilirubin suspect underlying liver disease: Will obtain abdominal ultrasound to further evaluate. Will also obtain FELY, HIV and hepatitis panel. Will discuss with GI. Acute renal injury with electrolyte abnormalities including hypokalemia, hypophosphatemia, hypoalbumenia: Nephrology consulted. Electrolyte protocol in place. Continue to monitor and adjust appropriately. Moderate protein malnutrition: Will consult dietary to further evaluate. Anemia likely of chronic disease: Will check lab. Will monitor this closely. Time Spent Managing Pts Care (In Minutes): 55
--- NOTE | 2020-04-11 08:21 | P.CNS ---
Date of Consult: 04/11/20 Reason for Consult: severe hypokalemia, volume overload, ARY. Requesting Physician: Cesar Perez Primary Care Provider: None Chief Complaint: Intraperitoneal free air History of Present Illness: 64 y o male pt with hx of CHF and who is one oral lasix at home admitted for management of weakness and diarrhea, found to have significant lab abnormalities of hypokalemia with potassium of 2.1, ARY with creatinine of 1.4 and leg edema. He had reported diarrhea of 4 days duration and has been feeling unwell. No report of vomiting, nausea, dizziness, cramps, headache or fever. No cough, sob or overt abd pain. He was found to have intraperitoneal free air raising concerns for perforation but no lesions found so far. He also has ascites and pleural effusion. He was started on lasix IV for pedal edema and replacement protocol for his hypokalemia. nephrology consult was placed for management of his electrolyte and kidney function abnormalities. Allergies No Known Allergies Allergy (Unverified 04/10/20 22:22) Home medications list reviewed: Yes Home Medications: NK [No Home Meds] 04/11/20 - Past Medical/Surgical History Diabetic: No -: CHF? 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 - Social History Alcohol use: No CD- Drugs: No Caffeine use: Yes Place of Residence: Home Review of Systems General: Malaise Gastrointestinal: Diarrhea, Other (poor appetite.) Neurological: Weakness Physical Examination Temp Pulse Resp BP Pulse Ox 97.5 F 84 16 115/65 100 04/11/20 08:14 04/11/20 08:14 04/11/20 08:14 04/11/20 08:14 04/11/20 08:14 General: Alert, Oriented x3, Cachectic HEENT: Atraumatic, Normocephalic Neck: Supple Respiratory: Clear to auscultation bilaterally Cardiovascular: Regular rate/rhythm, Normal S1 S2 Gastrointestinal: Distended Musculoskeletal: Swelling (both legs.) Neurological: Normal speech, Cranial nerves 3-12 intact Laboratory Data (last 24 hrs) 04/10/20 15:50: Phosphorus 1.8 L, Magnesium 2.4, LDL Cholesterol Direct 71 L 04/10/20 15:50: WBC 12.8 H, Hgb 13.5 L, Hct 40.6, Plt Count 224 04/10/20 15:50: Sodium 138, Potassium 2.0 L*, BUN 21 H, Creatinine 1.46 H, Glucose 58 L, Total Bilirubin 3.6 H, AST 21, ALT 8 L, Alkaline Phosphatase 173 H, Amylase 5 L, Lipase 20 L 04/10/20 15:50: PT 15.3 H, INR 1.30, APTT 30.7 Conclusions/Impression: #Severe hypokalemia-Etiology is deemed due to renal wasting from diuretics and GI loss from diarrhea. repletion has been started. we will monitor closely and continue aggressive repletion. magnesium is normal at 2.4. #CHF-Based on self reported issues as per pt. Lasix has been started. we will continue to monitor. #Ascites-Etiology is yet to be determined. we will continue routine monitoring for now. ABd U to be reviewed. #Hypophosphatemia- Phosphorus is low at 1.8. we will continue aggressive replet ion and monitor. #Diarrhea-Infectious vs inflammatory in origin. Pending labs for work up. we will continue present care. No report of laxative use. #ARY-Creatinine was 1.46 on admission but this is better today at 1.24. Deemed prerenal in origin. we will continue to avoid nephrotoxins and dose meds for eGFR. Review of renal US at bedside is concerning for increased echogenicity. we will review final report. Physician Review: Patient Assessed, Agree with Above Assessment and Plan
[2020-04-11] MEDS: FUROSEMIDE 40 MG/4 ML VIAL IV SCH ×2 (08:22→17:52)
[2020-04-11] MEDS ORDERED: FUROSEMIDE 40 MG/4 ML VIAL ONE ×2 (08:31→17:55)
[2020-04-11] MEDS ORDERED: POTASSIUM PHOS IN 0.9 % NACL 15 MMOL/250 ML BAG IV ONE (09:14)
--- NOTE | 2020-04-11 09:34 | RAD REPORT ---
EXAM DESCRIPTION: US - Abdomen Exam Complete - 04/11/2020 9:18 am CLINICAL HISTORY: Ascites, Intraperitoneal free air, colitis, ARY COMPARISON: Abdomen Pelvis W Contrast dated 04/10/2020 FINDINGS: Gallbladder size is normal. Gallbladder wall thickening is present possibly a secondary re sponse to systemic disease. Pericholecystic fluid is present as part of the ascites that was detailed on the prior CT study. Small gallbladder wall polyps are evident. No measurable sludge or free galls tones. Common bile duct is normal with no common duct stone identified. No focal liver lesion identified. No capsule nodularity identified. Doppler evaluation shows no nikita l vein abnormality. The pancreas is normal. No splenomegaly or focal splenic finding. No hydronephrosis or suspicious mass in either kidney. Bilateral simple renal cysts are identified. Aorta and IVC show no suspicious findings. Ascites is present. No bulky lymphadenopathy. IMPRESSION: Gallbladder wall thickening without stones or sludge identifiable. This is suspected to be chronic wall thickening or secondary response to systemic disease rather than an acute gallbladder process. No hydronephrosis or suspicious renal finding. Benign cysts are identified. No focal lesion in a normal size liver. Ascites as detailed on the CT study.
[2020-04-11 09:47] LABS: Thyroid Stimulating Hormone 2.78 uIU/mL (0.360-3.740)
[2020-04-11] MEDS: D50W 25 GM/50 ML SYRINGE IV PRN ×4 (10:57→22:51)
[2020-04-11] MEDS ORDERED: GLUCAGON 1 MG/VIAL ONE (11:06)
[2020-04-11] MEDS ORDERED: D50W 50 ML IV ONE ×3 (11:09→23:04)
--- NOTE | 2020-04-11 12:08 | P.CNS ---
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 No lung issues no history of hepatitis or alcohol use he is not short of breath as found ascites and bilateral pleural effusion denies any pulmonary complaint Allergies No Known Allergies Allergy (Unverified 04/10/20 22:22) Home Medications: NK [No Home Meds] 04/11/20 - Past Medical/Surgical History Diabetic: No -: CHF? 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 - Social History Alcohol use: No CD- Drugs: No Caffeine use: Yes Place of Residence: Home Review of Systems General: Weakness Cardiovascular: Edema (Bilateral) Gastrointestinal: Diarrhea Physical Examination Temp Pulse Resp BP Pulse Ox 97.5 F 84 16 115/65 100 04/11/20 08:20 04/11/20 08:22 04/11/20 08:20 04/11/20 08:22 04/11/20 08:20 General: Alert, Oriented x3 HEENT: Atraumatic Neck: Supple Respiratory: Clear to auscultation bilaterally Cardiovascular: Edema (2+ edema), Irregular heart rate/rhythm Gastrointestinal: Normal bowel sounds, Hypoactive Laboratory Data (last 24 hrs) 04/10/20 15:50: Phosphorus 1.8 L, Magnesium 2.4, LDL Cholesterol Direct 71 L 04/10/20 15:50: WBC 12.8 H, Hgb 13.5 L, Hct 40.6, Plt Count 224 04/10/20 15:50: Sodium 138, Potassium 2.0 L*, BUN 21 H, Creatinine 1.46 H, Glucose 58 L, Total Bilirubin 3.6 H, AST 21, ALT 8 L, Alkaline Phosphatase 173 H, Amylase 5 L, Lipase 20 L 04/10/20 15:50: PT 15.3 H, INR 1.30, APTT 30.7 - Problems (1) Pleural effusion Current Visit: Yes Status: Acute Plan: Patient is 64 years of age admitted with 2 week onset of lower extremity edema admission precipitated by diarrhea 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 He denies any cardiopulmonary problems no history of liver disease patient has ascites small bilateral pleural effusions is a cachectic looking trudi although the patient states that he has lost any weight recently labs reviewed x-rays reviewed there is no significant effusion on the chest x-ray echocardiogram is pending patient is hypoalbuminemic blood pressure stable mildly hypoxic no the pre-existing medical problems
[2020-04-11] MEDS ORDERED: ENOXAPARIN 40 MG/0.4 ML SQ SCH (17:00)
--- NOTE | 2020-04-11 17:20 | P.CNS ---
Date of Consult: 04/11/20 PC: I was asked to see this 64-year-old male in the emergency room due to intraperitoneal free air. HPC: Patient has been at home for the last week or so. Has been noticing he has been losing weight, and he has had some peripheral swelling. He has also had some diarrhea. He came to the emergency room for diagnosis and treatment. 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 No known allergies. SYS REVIEW: No cough, wheeze. Has a little bit short of breath he states. Has also noticed he has been losing weight. States he tries to eat but does not have much of an appetite. No real abdominal pain at all. Denies taking any over the counter analgesics. O/E cachectic-looking man, normotensive at the moment. HEENT: Nonicteric Chest: Chest movement equal bilaterally ABD: Distended, no guarding rebound, no peritoneal signs. LOCO: Intact DATA: CT scan shows small amounts of free air intraperitoneally. There is no obvious source for this at the current time. IMPRESSION: Surgically the patient looks well. Does not have any signs or symptoms demonstrating a Cho viscus with leak. PLAN: Patient is a nasogastric tube in place. Will follow as he gets his medical issues sorted. I do not feel he will require any surgical intervention at the moment.
[2020-04-11] MEDS: PIPER/TAZO/NS 2.25gm 2.25 GM/50 ML BAG IV SCH (18:03)
--- NOTE | 2020-04-11 18:11 | EKG ---
Test Date: 2020-04-11 Test Time: 14:19:56 [employer] Reporter: KIERRA MEASUREMENT RESULTS: Intervals: Rate: 99 NC: 194 QRSD: 94 QT: 382 QTc: 490 [place]: P: 64 NC: 194 QRS: 69 T: 87 INTERPRETIVE STATEMENTS: Sinus rhythm with frequent premature ventricular complexes and premature atrial complexes Anterior infarct, age undetermined Abnormal ECG Compared to ECG 04/10/2020 15:40:57 Atrial premature complex(es) now present Atrial fibrillation no longer present Myocardial infarct finding still present Electronically Signed On 04-11-20 18:11:10 MANAGER LATIN by Santiago Perdomo
--- NOTE | 2020-04-11 18:14 | EKG ---
Test Date: 2020-04-10 Test Time: 15:40:57 Primer Charging Tool Setter: JUANI MEASUREMENT RESULTS: Intervals: Rate: 100 LA: QRSD: 84 QT: 380 QTc: 490 [place]: P: LA: QRS: 38 T: 59 INTERPRETIVE STATEMENTS: Atrial fibrillation with premature ventricular or aberrantly conducted complexes Anteroseptal infarct, age undetermined Abnormal ECG No previous ECG available for comparison Electronically Signed On 04-11-20 18:11:29 NEUROPSYCHOLOGY DIRECTOR by Santiago Perdomo
[2020-04-11] MEDS: ENOXAPARIN 60 MG/0.6 ML SQ SCH (20:26)
[2020-04-11] MEDS ORDERED: ENOXAPARIN 60 MG/0.6 ML SQ ONE (20:38)
[2020-04-12] MEDS: PIPER/TAZO/NS 2.25gm 2.25 GM/50 ML BAG IV SCH ×3 (00:46→16:50)
[2020-04-12] MEDS: KCL 20 MEQ/100 mL IVPB 20 MEQ/100 ML BAG IV SCH ×5 (01:29→16:41)
[2020-04-12] MEDS ORDERED: KCL 20 MEQ/100 mL IVPB 20 MEQ/100 ML BAG IV ONE ×3 (01:40→05:33)
[2020-04-12] MEDS: D50W 25 GM/50 ML SYRINGE IV PRN ×2 (02:55→11:26)
--- NOTE | 2020-04-12 05:02 | CON ---
Date of Consultation: 04/11/2020 Reason For Consultation: Elevated troponin and anasarca. History Of Present Illness: Mr. Alarcon is a 64-year-old male who came in with abdominal swelling and w eakness. Has had a history of congestive heart failure, but he is not taking any medicine. He does not have any allergies. He said for the last 2 weeks has been having bilateral lower extremity swell ing, generally feeling weak. He denied any fever, chills, or cough. He denied any chest pain. Seth ed any nausea, vomiting, or diaphoresis. Chest x-ray that was done revealed extensive interstitial o pacification consistent with fibrosis versus edema or infiltrate or a combination. He had an abdomin al CT that showed large volume of ascites, intraperitoneal free air, and no masses. He had bilateral hydronephrosis that appears to be functional. CTA of the chest revealed no pulmonary embolus. He h ad an abdominal ultrasound that showed thickened gallbladder wall. His EKG shows sinus rhythm with P VCs. Consultation by Dr. Key recommended nasogastric tube in place without any plan for any surg piero at the moment. Past Medical History: As stated earlier. Allergies: NONE. Review of Systems: Negative. Social History: Negative. Family History: Noncontributory. Medications: Patient does not really take any medication at home. Physical Examination: Vital Signs: Stable. He was afebrile. He was in sinus tachycardia when I saw him today at a rate o f 98. HEENT: Negative. Neck: Supple with no bruit. Chest: Clear. Cardiac: Revealed a regular rhythm and rate. No murmurs, gallops, or rubs. Abdomen: Obese. Positive ascites, but nontender. Extremities: Revealed severe edema. Diagnostic Data: Mostly stated earlier, but his creatinine was 1.24. His hemoglobin was 11.7. He h ad a D-dimer of 3815. His potassium initially was 2 when he was being supplemented. His troponin wa s 0.20. His C-reactive protein was 317. His lipase was 20. His amylase was 5. BNP was not ordered . His T4 level was normal. Hepatitis panel, C difficile panel, HIV, and COVID tests were pending. His COVID was actually negative. Impression And Plan: Anasarca with ascites, weight loss, free air in the peritoneum, etiology is unk nown. Patient is presently on albumin, Lovenox, Lasix, potassium, antibiotics. His echocardiogram i s pending. Surgical consultation was obtained. Obviously, the mainstay of therapy for now is diures is. Aldactone may help with his potassium as well as diuresis, and I think this needs to be started. Echocardiogram is pending. Pulmonary consultation has been obtained. I will continue to follow kindra pelaez. DONATO/DEE Voice ID: [id number] Report ID: [id number]
[2020-04-12 05:29] LABS: Absolute Lymphocytes (CBC) 0.7 K/uL (0.7-4.9); Basophils % 0.3 % (0-1.3); Hematocrit 35.2 % (39.6-49.0); Lymphocytes % 4.9 % (15.3-44.8); MPV 9.7 fL (7.6-11.3); Protime INR 1.44; RBC Red Blood Cell Count 4.03 M/uL (4.33-5.43)
[2020-04-12 05:39] LABS: AST/SGOT 14 U/L (15-37); Albumin 1.8 g/dL (3.4-5.0); Alkaline Phosphatase 140 U/L (45-117); BUN Blood Urea Nitrogen 16 mg/dL (7-18); Bicarbonate 33 mmol/L (21-32); Bilirubin Total 3.6 mg/dL (0.2-1.0); Glucose Level 96 mg/dL (74-106); Magnesium 2.1 mg/dL (1.8-2.4); Phosphorus 3.1 mg/dL (2.5-4.9); Potassium 3.1 mmol/L (3.5-5.1); Protein, Total 5.6 g/dL (6.4-8.2); Sodium Level 144 mmol/L (136-145)
[2020-04-12 05:40] LABS: ALT/SGPT < 6 U/L (12-78)
--- NOTE | 2020-04-12 08:09 | P.PN ---
Subjective Date of Service: 04/12/20 Primary Care Provider: None Chief Complaint: Pleural effusion Physical Examination - Vital Signs Temperature: 98 F Blood Pressure: 109/70 Pulse: 98 Respirations: 12 Pulse Ox (%): 93 - Physical Exam General: Alert, Oriented x3 HEENT: Atraumatic, Normocephalic, PERRLA Neck: Supple Respiratory: Clear to auscultation bilaterally Cardiovascular: Regular rate/rhythm, Normal S1 S2 Gastrointestinal: Normal bowel sounds Musculoskeletal: Swelling Neurological: Normal speech, Cranial nerves 3-12 intact - Studies Medications List Reviewed: Yes Assessment And Plan Physician Review: Patient Assessed, Agree with Above Assessment and Plan Physician Review Additional Text: #Severe hypokalemia-His potassium is better at 3.1 today. he does have better electrolyte profile compared to on admission. We will continue aggressive repletion and monitor closely. #CHF-Based on self reported issues as per pt. Lasix has been started. we will continue to monitor. #Ascites-Etiology is yet to be determined. we will continue routine monitoring for now. Abd US to be reviewed. #Hypophosphatemia- Phosphorus is better at 3.1. we will continue repletion and monitor as needed. #Diarrhea-Infectious vs inflammatory in origin. Pending labs for work up. we will continue present care. No report of laxative use. #ARY-Creatinine is slightly up today at 1.39. we will continue routine monitoring. we will continue to avoid nephrotoxins and dose meds for eGFR.
--- NOTE | 2020-04-12 08:15 | RAD REPORT ---
EXAM DESCRIPTION: RAD - Abdomen 1 View (KUB) - 04/12/2020 8:05 am CLINICAL HISTORY: Abdomen pain. FINDINGS: The bowel gas pattern is unremarkable. A nasogastric tube has its tip in the gastric body on the inferior aspect of the film is a tube exten ding towards the right. This may represent a rectal tube
--- NOTE | 2020-04-12 08:38 | PN ---
Date of Progress Note: 04/12/2020 Subjective: Mr. Alarcon has came in with ascites, anasarca. Echocardiogram is pending. Potassium is v piero low, is being supplemented, while potassium remains low. He is on appropriate therapy including Lasix, MARTELL inhibitors, and beta-sonia. I think we need to put him on Aldactone that should help wi th . Echocardiogram remains pending. The patient is in sinus rhythm. He was seen by Dr. Key for free air in the peritoneum, but no plan for any surgical procedure at this point. The et iology of this remains unknown. DONATO/DEE Voice ID: [id number] Report ID: [id number]
[2020-04-12] MEDS ORDERED: FUROSEMIDE 40 MG/4 ML VIAL ONE ×2 (08:53→17:10)
[2020-04-12] MEDS ORDERED: ENOXAPARIN 60 MG/0.6 ML SQ ONE ×2 (08:54→21:15)
--- NOTE | 2020-04-12 09:11 | P.PN ---
Subjective Date of Service: 04/12/20 Primary Care Provider: None Chief Complaint: Pleural effusion Subjective: Other (Patient overall improved. Blood pressure stable. Patient on room air.) Physical Examination - Vital Signs Temperature: 98 F Blood Pressure: 109/70 Pulse: 98 Respirations: 12 Pulse Ox (%): 93 - Physical Exam General: Alert, In no apparent distress, Oriented x3, Cooperative, Cachectic HEENT: Atraumatic Neck: Supple Respiratory: Clear to auscultation bilaterally Cardiovascular: Normal pulses, Regular rate/rhythm Gastrointestinal: Normal bowel sounds, No tenderness, No masses, No rebound, No guarding Integumentary: Tenderness/swelling (No further significant edema to the lower extremity.), Other (Slight erythema to the left knee with mild bruising medially.) Neurological: Normal speech, Normal strength at 5/5 x4 extr, Normal tone, Normal affect - Studies Medications List Reviewed: Yes Assessment & Plan Discharge Plan: Home Plan to discharge in: Greater than 2 days Physician Review Additional Text: Assessment Diarrhea, weakness, ascites secondary to colitis complicated with intraperitoneal free air noted on CT scan without identifiable perforation etiology unknown need to rule out cancer, liver disease, other Large bilateral pleural effusion with edema to the lower extremity and ascites suspect acute on chronic systolic CHF Atrial fibrillation rate controlled Elevated troponin likely related to above, ischemic demand Elevated bilirubin suspect underlying liver disease Acute renal injury with electrolyte abnormalities including hypokalemia, hypophosphatemia, hypoalbumenia Moderate protein malnutrition Anemia likely of chronic disease Left knee pain Plan: Diarrhea, weakness, ascites secondary to colitis complicated with intraperitoneal free air noted on CT scan without identifiable perforation etiology unknown need to rule out cancer, liver disease, other: Patient stable at this time. Continue IV antibiotic therapy to cover for possible colitis. Etiology still undetermined. C diff culture pending. Stool culture pending. Blood cultures negative. Patient with NG tube. Will discuss with surgery about the possibility of removing NG tube. No surgical intervention needed at this time. Continue monitor lab closely. Await other lab including FELY, HIV and hepatitis panel. Echocardiogram pending. Overall electrolytes improved. Case discussed with cardiology, pulmonology and nephrology. Once stable well consider physical therapy. Patient may require skilled placement. Will continue monitor and adjust medication. Large bilateral pleural effusion with edema to the lower extremity and ascites suspect acute on chronic systolic CHF: Continue IV Lasix. Will consider adding Aldactone once able to take oral intake. Edema to the lower extremities improved. Patient not requiring any oxygen. Overall stable. Await echocardiogram. Case discussed with cardiology. Atrial fibrillation rate controlled: Patient now in normal sinus rhythm with beta-sonia therapy for rate control. Will provide DVT prophylaxis. Likely no need for chronic anti coagulation therapy will discuss further with cardiology. Elevated troponin likely related to above, ischemic demand: Will obtain echocardiogram. Will discuss with cardiology. Elevated bilirubin suspect underlying liver disease: Abdominal ultrasound unremarkable, no evidence of cirrhosis. Await FELY, HIV and hepatitis panel. Will discuss with GI. Acute renal injury with electrolyte abnormalities including hypokalemia, hypophosphatemia, hypoalbumenia: Overall improved. Continue with Nephrology recommendations. Electrolyte protocol in place. Continue to monitor and adjust appropriately. Moderate protein malnutrition: Await dietary to further evaluate. Anemia likely of chronic disease: Will check lab. Will monitor this closely. Left knee pain: Slight erythema and bruising. Will check x-ray. Suspect likely from fall prior to admission Time Spent Managing Pts Care (In Minutes): 55
[2020-04-12] MEDS: FUROSEMIDE 40 MG/4 ML VIAL IV SCH ×2 (09:14→16:56)
[2020-04-12] MEDS: ENOXAPARIN 60 MG/0.6 ML SQ SCH ×2 (09:19→21:54)
--- NOTE | 2020-04-12 10:11 | RAD REPORT ---
EXAM DESCRIPTION: RAD - Knee Left 2 View - 04/12/2020 9:59 am CLINICAL HISTORY: Left knee pain FINDINGS: No fracture or dislocation is seen. Limited 2 view series obtained Anterior soft tissue swelling is present.
[2020-04-12] MEDS ORDERED: D50W 50 ML IV ONE (11:35)
[2020-04-12 12:02] LABS: C.diff Antigen/Toxin Ag neg : Tox neg (NEG : NEG)
[2020-04-12] MEDS ORDERED: KCL 20 MEQ/100 mL IVPB 40 MEQ/200 ML BAG IV ONE (13:46)
--- NOTE | 2020-04-12 14:07 | ECHO ---
HEIGHT: 5 ft 8 in WEIGHT: 114 lb 10.246 oz DATE OF STUDY: 04/12/[address]: Truong Zheng DO 2-DIMENSIONAL: YES M.MODE: YES DOPPLER: YES COLOR FLOW: YES TDS: PORTABLE: DEFINITY: BUBBLE STUDY: DIAGNOSIS: ASCITES/ CONGESTIVE HEART FAILURE/ ATRIAL FIBRILLATION CARDIAC HISTORY: CATHERIZATION: NO SURGERY: NO PROSTHETIC VALVE: NO PACEMAKER: NO MEASUREMENTS (cm) DIASTOLIC (NORMALS) SYSTOLIC (NORMALS) IVSd 1.0 (0.6-1.2) LA Diam 3.6 (1.9-4.0) LVEF 40-45% LVIDd 4.6 (3.5-5.7) LVIDs 3.9 (2.0-3.5) %FS 15% LVPWd 1.1 (0.6-1.2) Ao Diam 2.8 (2.0-3.7) 2 DIMENSIONAL ASSESSMENT: RIGHT ATRIUM: NORMAL LEFT ATRIUM: NORMAL RIGHT VENTRICLE: NORMAL LEFT VENTRICLE: NORMAL TRICUSPID VALVE: MODERATE TRICUSPID REGURGITATION MITRAL VALVE: MILD MITRAL REGURGITATION PULMONIC VALVE: NORMAL AORTIC VALVE: NORMAL PERICARDIAL EFFUSION: NONE AORTIC ROOT: NORMAL LEFT VENTRICULAR WALL MOTION: MILD TO MODERATE GLOBAL HYPOKINESIS DOPPLER/COLOR FLOW: SEE BELOW COMMENTS: MILD LEFT VENTRICULAR DYSFUNCTION WITH LEFT VENTRICULAR EJECTION FRACTION OF 40-45% WITH MILD GLOBAL HYPOKINESIS. MODERATE TRICUSPID REGURGITATION, MILD MITRAL REGURGITATION. PULMONARY HYPERTENSION WITH RIGHT VENTRICULAR SYSTOLIC PRESSURE OF 40-45 mmHg. TECHNOLOGIST: LARS CHIANG
[2020-04-12] MEDS: LOPERAMIDE HCL 2 MG CAPSULE PO STA ×2 (16:57→17:13)
[2020-04-12] MEDS ORDERED: FUROSEMIDE 20 MG/ 2ML VIAL ONE (17:00)
[2020-04-12] MEDS ORDERED: LOPERAMIDE HCL 2 MG CAPSULE ONE (17:00)
[2020-04-12] MEDS ORDERED: NA CHLORIDE 0.9% 0 ML ONE (18:52)
[2020-04-12] MEDS: SIMETHICONE 80 MG TAB PO PRN (21:53)
[2020-04-12] MEDS: LACTOBACILLUS/ACIDOPHILUS TAB PO SCH (21:54)
[2020-04-12] MEDS ORDERED: SIMETHICONE 80 MG TAB ONE ×2 (22:02→22:07)
[2020-04-12] MEDS: ENSURE HIGH PROTEIN 237 ML CAN PO SCH (23:22)
[2020-04-13] MEDS: PIPER/TAZO/NS 2.25gm 2.25 GM/50 ML BAG IV SCH ×3 (00:47→16:54)
[2020-04-13] MEDS: LOPERAMIDE HCL 2 MG CAPSULE PO PRN ×3 (03:44→20:02)
[2020-04-13] MEDS ORDERED: LOPERAMIDE HCL 2 MG CAPSULE ONE ×2 (03:58→12:37)
[2020-04-13 05:37] LABS: Protime INR 1.28
[2020-04-13 05:38] LABS: Absolute Lymphocytes (CBC) 1.1 K/uL (0.7-4.9); Basophils % 0.2 % (0-1.3); Hematocrit 35.3 % (39.6-49.0); Lymphocytes % 9.3 % (15.3-44.8); RBC Red Blood Cell Count 4.01 M/uL (4.33-5.43)
[2020-04-13 06:02] LABS: Albumin 1.7 g/dL (3.4-5.0); Bilirubin Total 3.4 mg/dL (0.2-1.0); Phosphorus 3.1 mg/dL (2.5-4.9); Potassium 3.8 mmol/L (3.5-5.1)
[2020-04-13] MEDS ORDERED: KCL 20 MEQ/100 mL IVPB 20 MEQ/100 ML BAG IV SCH (08:00)
[2020-04-13] MEDS: ENSURE HIGH PROTEIN 237 ML CAN PO SCH ×2 (09:00→20:07)
[2020-04-13] MEDS: FUROSEMIDE 40 MG/4 ML VIAL IV SCH (09:08)
[2020-04-13] MEDS: ENOXAPARIN 60 MG/0.6 ML SQ SCH ×2 (09:08→20:05)
[2020-04-13] MEDS: LACTOBACILLUS/ACIDOPHILUS TAB PO SCH ×3 (09:08→20:03)
[2020-04-13] MEDS ORDERED: FUROSEMIDE 40 MG/4 ML VIAL ONE (09:12)
[2020-04-13] MEDS ORDERED: KCL 20 MEQ/100 mL IVPB 20 MEQ/100 ML BAG IV ONE (09:13)
[2020-04-13] MEDS ORDERED: ENOXAPARIN 60 MG/0.6 ML SQ ONE (09:13)
--- NOTE | 2020-04-13 10:30 | RAD REPORT ---
EXAM DESCRIPTION: [place] Single View04/13/2020 10:15 am CLINICAL HISTORY: Pulmonary hypertension. Pleural effusions COMPARISON: April 10, 2020 FINDINGS: The pleural effusions have decreased in size. They appear small to moderate. Mild bibasila r atelectasis The upper lobes appear clear. Heart is mildly enlarged
[2020-04-13] MEDS: SIMETHICONE 80 MG TAB PO PRN ×2 (11:06→18:54)
--- NOTE | 2020-04-13 11:14 | P.PN ---
Subjective Date of Service: 04/13/20 Primary Care Provider: None Chief Complaint: Pleural effusion Subjective: Improving, Other (Patient feels better. Blood pressure stable) Physical Examination - Vital Signs Temperature: 97.7 F Blood Pressure: 113/77 Pulse: 101 Respirations: 15 Pulse Ox (%): 99 - Physical Exam General: Alert, In no apparent distress, Oriented x3, Cooperative, Cachectic HEENT: Atraumatic Neck: Supple Respiratory: Clear to auscultation bilaterally, Normal air movement Cardiovascular: Normal pulses, Regular rate/rhythm Gastrointestinal: Normal bowel sounds, No tenderness, No masses, No rebound, No guarding Integumentary: No erythema, No warmth, No cyanosis, Tenderness/swelling (Swelling to the lower extremities improved.) Neurological: Normal speech, Normal strength at 5/5 x4 extr, Normal tone, Normal affect - Studies Microbiology Data (last 24 hrs): 04/10/20 15:25 Clean Catch Urine [place] Count - Final No growth. 04/10/20 15:25 Clean Catch Urine - Final No growth. Medications List Reviewed: Yes Assessment & Plan Discharge Plan: Home Plan to discharge in: 48 Hours Physician Review Additional Text: Assessment Diarrhea, weakness, ascites secondary to colitis complicated with intraperitoneal free air noted on CT scan without identifiable perforation etiology unknown need to rule out cancer, liver disease, other Large bilateral pleural effusion with edema to the lower extremity and ascites s econdary to acute on chronic systolic CHF Atrial fibrillation rate controlled Elevated troponin likely related to above, ischemic demand Elevated bilirubin suspect underlying liver disease Acute renal injury with electrolyte abnormalities including hypokalemia, hypophosphatemia, hypoalbumenia Moderate protein malnutrition Anemia likely of chronic disease Left knee pain Plan: Diarrhea, weakness, ascites secondary to colitis complicated with intraperitoneal free air noted on CT scan without identifiable perforation etiology unknown need to rule out cancer, liver disease, other: Patient overall improved. Continue to advance diet. Continue IV antibiotic therapy. C diff culture negative. Blood cultures negative. Medication for diarrhea added. Continue pro biotics. Will discuss case with GI. Patient will likely require GI evaluation as an outpatient with colonoscopy. Will transition to the floor if blood pressure stable today. Anticipate improvement over the next several days. Large bilateral pleural effusion with edema to the lower extremity and ascites secondary to acute on chronic systolic CHF: Patient overall stable. Ejection fraction 40% with mild global hypokinesis. Moderate tricuspid regurgitation and pulmonary hypertension noted. Case discussed with pulmonology. Will adjust Lasix to oral. Add Aldactone. Will add beta-sonia and MARTELL-inhibitor once blood pressure stable. Pleural effusions improved. Atrial fibrillation rate controlled: Patient in normal sinus rhythm. Will add beta-sonia for rate control once blood pressure stable. Likely no need for chronic anti coagulation therapy. Will discuss with cardiology Elevated troponin likely related to above, ischemic demand: Echo reviewed. Patient will were likely require cardiac workup as an outpatient. Elevated bilirubin suspect underlying liver disease: Abdominal ultrasound unremarkable, no evidence of cirrhosis. Await FELY, HIV and hepatitis panel. Will discuss with GI. Acute renal injury with electrolyte abnormalities including hypokalemia, hypophosphatemia, hypoalbumenia: Overall improved. Continue with Nephrology recommendations. Electrolyte protocol in place. Continue to monitor and adjust appropriately. Moderate protein malnutrition: Continue with dietary recommendations. Anemia likely of chronic disease: Will monitor this closely. Left knee pain: Slight erythema and bruising. No fracture noted Time Spent Managing Pts Care (In Minutes): 55
[2020-04-13] MEDS ORDERED: SIMETHICONE 80 MG TAB ONE (11:18)
[2020-04-13] MEDS ORDERED: PANTOPRAZOLE 40 MG INJ ONE (12:38)
[2020-04-13] MEDS ORDERED: NS 0.9% VIAL 10 ML ONE (12:38)
[2020-04-13] MEDS ORDERED: SODIUM CHLORIDE 0.9% 10ML INJ IV PRN (12:43)
--- NOTE | 2020-04-13 15:13 | P.PN ---
Subjective Date of Service: 04/13/20 Primary Care Provider: None Chief Complaint: Pleural effusion Subjective: No new changes, C/O voiced (left knee pain , worse with movt -still on kcl replacement -states diarrhea improving) Physical Examination - Vital Signs Temperature: 97.7 F Blood Pressure: 104/69 Pulse: 101 Respirations: 18 Pulse Ox (%): 98 - Physical Exam General: Alert, In no apparent distress, Cachectic HEENT: Atraumatic, Normocephalic Neck: Supple, 2+ carotid pulse no bruit, JVD not distended Respiratory: Diminished, Crackles/rales Cardiovascular: Normal S1 S2, Edema (1+ with anasarca) Gastrointestinal: Soft and benign, Non-distended, Ascites (, edematous wall ) Musculoskeletal: Swelling, Erythema (left knee ), Tenderness Neurological: Normal speech, Normal strength at 5/5 x4 extr, Normal tone - Studies Laboratory Last Values WBC 12.8 K/uL (4.3-10.9) H 04/10/20 15:50 RBC 4.61 M/uL (4.33-5.43) 04/10/20 15:50 Hgb 13.5 g/dL (13.6-17.9) L 04/10/20 15:50 Hct 40.6 % (39.6-49.0) 04/10/20 15:50 MCV 88.0 fL (80-100) 04/10/20 15:50 MCH 29.4 pg (27.0-35.0) 04/10/20 15:50 MCHC 33.4 g/dL (32.0-36.0) 04/10/20 15:50 RDW 16.9 % (12.1-15.2) H 04/10/20 15:50 Plt Count 224 K/uL (152-406) 04/10/20 15:50 MPV 9.7 fL (7.6-11.3) 04/10/20 15:50 Neutrophils % 95.3 % (41.7-73.7) H 04/10/20 15:50 Lymphocytes % 1.8 % (15.3-44.8) L 04/10/20 15:50 Monocytes % 2.7 % (3.3-12.3) L 04/10/20 15:50 Eosinophils % 0.1 % (0-4.4) 04/10/20 15:50 Basophils % 0.1 % (0-1.3) 04/10/20 15:50 Absolute Neutrophils 12.2 K/uL (1.8-8.0) H 04/10/20 15:50 Absolute Lymphocytes 0.2 K/uL (0.7-4.9) L 04/10/20 15:50 Absolute Monocytes 0.3 K/uL (0.1-1.3) 04/10/20 15:50 Absolute Eosinophils 0.0 K/uL (0-0.5) 04/10/20 15:50 Absolute Basophils 0.0 K/uL (0-0.5) 04/10/20 15:50 Platelet Estimate Adeq 04/10/20 15:50 Poikilocytosis 1+ 04/10/20 15:50 Anisocytosis 1+ 04/10/20 15:50 Morphology Comment Noted (NOT SEEN) 04/10/20 15:50 PT 15.3 SECONDS (9.5-12.5) H 04/10/20 15:50 INR 1.30 04/10/20 15:50 APTT 30.7 SECONDS (24.3-36.9) 04/10/20 15:50 D-Dimer 3815 FEUng/mL (<500) H* 04/10/20 15:50 Sodium 138 mmol/L (136-145) 04/10/20 15:50 Potassium 2.0 mmol/L (3.5-5.1) L* 04/10/20 15:50 Chloride 98 mmol/L (98-107) 04/10/20 15:50 Carbon Dioxide 33 mmol/L (21-32) H 04/10/20 15:50 BUN 21 mg/dL (7-18) H 04/10/20 15:50 Creatinine 1.46 mg/dL (0.55-1.3) H 04/10/20 15:50 Estimated GFR 48 mL/min (=/>90) L 04/10/20 15:50 Glucose 58 mg/dL (74-106) L 04/10/20 15:50 POC Glucose 76 mg/dL (65-120) 04/10/20 13:56 Lactic Acid 1.6 mmol/L (0.4-2.0) 04/10/20 15:50 Calcium 8.4 mg/dL (8.5-10.1) L 04/10/20 15:50 Phosphorus 1.8 mg/dL (2.5-4.9) L 04/10/20 15:50 Magnesium 2.4 mg/dL (1.8-2.4) 04/10/20 15:50 Total Bilirubin 3.6 mg/dL (0.2-1.0) H 04/10/20 15:50 Direct Bilirubin 3.0 mg/dL (0-0.2) H 04/10/20 15:50 AST 21 U/L (15-37) 04/10/20 15:50 ALT 8 U/L (12-78) L 04/10/20 15:50 Alkaline Phosphatase 173 U/L (45-117) H 04/10/20 15:50 Lactate Dehydrogenase 222 U/L (87-241) 04/10/20 15:50 Creatine Kinase 35 U/L (39-308) L 04/10/20 15:50 CK-MB (CK-2) 1.6 ng/mL (0.3-3.6) 04/10/20 15:50 Rapid Troponin I 0.22 ng/mL (0.0-0.045) H 04/10/20 15:50 C-Reactive Protein 317.00 mg/L (<3.00) H 04/10/20 15:50 Serum Total Protein 6.5 g/dL (6.4-8.2) 04/10/20 15:50 Albumin 1.8 g/dL (3.4-5.0) L 04/10/20 15:50 Globulin 4.7 g/dL (2.3-3.5) H 04/10/20 15:50 Albumin/Globulin Ratio 0.4 (1.1-1.8) L 04/10/20 15:50 LDL Cholesterol Direct 71 mg/dL (100-129) L 04/10/20 15:50 Amylase 5 U/L (25-115) L 04/10/20 15:50 Lipase 20 U/L (73-393) L 04/10/20 15:50 Procalcitonin 4.41 ng/mL (<0.50) H 04/10/20 15:50 Urine pH 5.0 (5.0-7.0) 04/10/20 15:35 Ur Specific [place] 1.010 (1.005-1.030) 04/10/20 15:35 Glucose (UA)(Auto) Negative (NEG) 04/10/20 15:35 Urine Ketones Negative (NEG) 04/10/20 15:35 Urine Blood 1+ (NEG) H 04/10/20 15:35 Urine Nitrite Negative (NEG) 04/10/20 15:35 Ur Leukocyte Esterase Negative (NEG) 04/10/20 15:35 Urine RBC <5 /HPF (NONE SEEN) 04/10/20 15:25 Urine WBC <5 /HPF (<5) 04/10/20 15:25 Ur Squamous Epith Cells <5 /HPF (NONE SEEN) 04/10/20 15:25 Urine Bacteria <20 /HPF (NONE SEEN) 04/10/20 15:25 Urine Culture Reflexed Not needed 04/10/20 15:25 Urine Total Protein 1+ (NEG) H 04/10/20 15:35 SARS-CoV-2 RNA (RT-PCR) Negative (NEGATIVE) 04/10/20 15:20 Smear Scan Ok (OK) 04/10/20 15:50 ABO/Rh O POSITIVE 04/10/20 17:30 Solid Phase Ab Screen Negative 04/10/20 15:50 Microbiology Data (last 24 hrs): 04/10/20 15:25 Clean Catch Urine [place] Count - Final No growth. 04/10/20 15:25 Clean Catch Urine - Final No growth. Medications List Reviewed: Yes Assessment & Plan Physician Review: Patient Assessed, Agree with Above Assessment and Plan Physician Review Additional Text: Assessment ARF - worsening , may be due to pre-renal with nephrotic syndrome vs cardiorenal syndrome -Hypoalbuminemia -Persistent Hypokalemia - due to GI loss -Chronic Diarrhea, weakness, ascites secondary to colitis complicated with intraperitoneal free air noted on CT scan without identifiable perforation etiology unknown need to rule out cancer, liver disease, other Large bilateral pleural effusion with edema to the lower extremity and ascites secondary to acute on chronic systolic CHF and Hypoalbuminemia Atrial fibrillation rate controlled Elevated troponin likely related to above, ischemic demand Elevated bilirubin suspect underlying liver disease Acute renal injury with electrolyte abnormalities including hypokalemia, hypophosphatemia, hypoalbumenia Moderate protein malnutrition Anemia likely of chronic disease Left knee pain Plan: #ARF - cr worsen to 1.59 -will dose albumin to mobilize fluid intravascularly since trending low BP - Avoid hypotension -c/w lasix -Agree with aldactone -follow random urine protein/creatinine especially since 1+ protein in UA -Doubt component of MM since normal h/h -renally dose all meds #Hypokalemia - due to lasix use and GI loss - start kcl 40 meq tid # Anasarca - persistent , c/w lasix and added aldactone -r/o nephrotic syndrome contributing to fluid overload and effusions # Left Knee erythema - may be due to infectious vs gourty arthritis -on abx - follow uric acid , if elevated , start colchicine #Diarrhea, weakness, ascites secondary to colitis complicated with intraperitoneal free air noted on CT scan without identifiable perforation etiology unknown need to rule out cancer, liver disease, other: Patient overall improved. Continue to advance diet. Continue IV antibiotic therapy. C diff culture negative. Blood cultures negative. Medication for diarrhea added. Continue pro biotics. Will discuss case with GI. Patient will likely require GI evaluation as an outpatient with colonoscopy. Will transition to the floor if blood pressure stable today. Anticipate improvement over the next several days. Large bilateral pleural effusion with edema to the lower extremity and ascites secondary to acute on chronic systolic CHF: Patient overall stable. Ejection fraction 40% with mild global hypokinesis. Moderate tricuspid regurgitation and pulmonary hypertension noted. Case discussed with pulmonology. Will adjust Lasix to oral. Add Aldactone. Will add beta-sonia and MARTELL-inhibitor once blood pressure stable. Pleural effusions improved. Atrial fibrillation rate controlled: Patient in normal sinus rhythm. Will add beta-sonia for rate control once blood pressure stable. Likely no need for chronic anti coagulation therapy. Will discuss with cardiology Elevated troponin likely related to above, ischemic demand: Echo reviewed. Patient will were likely require cardiac workup as an outpatient. Elevated bilirubin suspect underlying liver disease: Abdominal ultrasound unremarkable, no evidence of cirrhosis. Await FELY, HIV and hepatitis panel. Will discuss with GI. Moderate protein malnutrition: Continue with dietary recommendations. Anemia likely of chronic disease: Will monitor this closely. Critical Care: Yes
[2020-04-13] MEDS: FUROSEMIDE 40 MG TABLET PO SCH (16:54)
[2020-04-13] MEDS: POTASSIUM 25 MEQ EFFERV TAB PO SCH ×2 (16:54→21:00)
[2020-04-13] MEDS: SPIRONOLACTONE 25 MG TABLET PO SCH (20:04)
[2020-04-13] MEDS ORDERED: PANTOPRAZOLE 40 MG INJ IVP SCH (21:00)
[2020-04-14] MEDS: PIPER/TAZO/NS 2.25gm 2.25 GM/50 ML BAG IV SCH (00:56)
[2020-04-14 05:48] LABS: Absolute Lymphocytes (CBC) 0.9 K/uL (0.7-4.9); Basophils % 0.5 % (0-1.3); Hematocrit 34.6 % (39.6-49.0); MPV 9.1 fL (7.6-11.3); RBC Red Blood Cell Count 3.94 M/uL (4.33-5.43)
[2020-04-14 06:14] LABS: AST/SGOT 17 U/L (15-37); Albumin 1.6 g/dL (3.4-5.0); Alkaline Phosphatase 170 U/L (45-117); BUN Blood Urea Nitrogen 21 mg/dL (7-18); Bicarbonate 32 mmol/L (21-32); Bilirubin Total 3.9 mg/dL (0.2-1.0); Glucose Level 71 mg/dL (74-106); Potassium 3.6 mmol/L (3.5-5.1); Protein, Total 5.7 g/dL (6.4-8.2); Sodium Level 138 mmol/L (136-145)
[2020-04-14 06:30] LABS: ALT/SGPT < 6 U/L (12-78)
--- NOTE | 2020-04-14 08:00 | P.PN ---
Subjective Date of Service: 04/14/20 Primary Care Provider: None Chief Complaint: Pleural effusion Subjective: Improving (Patient feels better. Diarrhea improved. Edema to the lower extremities improved. Blood pressure stable. Still with erythema to the left knee.) Physical Examination - Vital Signs Temperature: 97.9 F Blood Pressure: 108/58 Pulse: 103 Respirations: 16 Pulse Ox (%): 91 - Physical Exam General: Alert, In no apparent distress, Oriented x3, Cooperative, Cachectic HEENT: Atraumatic Neck: Supple Respiratory: Clear to auscultation bilaterally, Normal air movement Cardiovascular: Normal pulses, Regular rate/rhythm Gastrointestinal: Normal bowel sounds, No masses, No rebound, No guarding Integumentary: Tenderness/swelling (Erythema to the left knee stable. Warmth noted. No significant effusion noted. Some skin breakdown to the lower extremities.) Neurological: Normal speech, Normal strength at 5/5 x4 extr, Normal tone, Normal affect - Studies Microbiology Data (last 24 hrs): 04/10/20 15:25 Clean Catch Urine [place] Count - Final No growth. 04/10/20 15:25 Clean Catch Urine - Final No growth. Medications List Reviewed: Yes Assessment & Plan Discharge Plan: Home Plan to discharge in: 48 Hours Physician Review Additional Text: Assessment Diarrhea, weakness, ascites secondary to colitis complicated with intraperitoneal free air noted on CT scan without identifiable perforation etiology unknown, likely related to electrolyte dysfunction and acute on chronic systolic CHF, ejection fraction 40% with pulmonary hypertension noted Large bilateral pleural effusion with edema to the lower extremity, scrotal edema and ascites secondary to acute on chronic systolic CHF Paroxysmally atrial fibrillation now normal sinus rhythm Elevated troponin likely related to above, ischemic demand Elevated bilirubin suspect underlying liver disease Acute renal injury with electrolyte abnormalities including hypokalemia, hypophosphatemia, hypoalbumenia Moderate protein malnutrition Anemia likely of chronic disease Left knee pain with erythema suspect cellulitis Plan: Diarrhea, weakness, ascites secondary to colitis complicated with intraperitoneal free air noted on CT scan without identifiable perforation etiology unknown, likely related to electrolyte dysfunction and acute on chronic systolic CHF, ejection fraction 40% with pulmonary hypertension noted: Patient overall improved. Continue to advance diet. Patient on pro biotics. Edema to the lower extremity significantly improved including scrotal edema. Continue 1500 cc per day fluid restriction. Continue diuretic therapy-Lasix and Aldactone. Case discussed in detail with pulmonology, cardiology and nephrology. Patient still with erythema to the left knee. Uric acid normal. Suspect cellulitis. Will change IV antibiotic therapy from IV Zosyn to IV cefepime/vancomycin. Pro calcitonin improved. Await other lab pending including HIV, hepatitis panel, FELY. Patient will need GI workup as an outpatient. This will include EGD, colonoscopy. Blood cultures negative. Will have physical therapy ambulate. Social work to help arrange for home health and physical therapy at discharge. Anticipate improvement over the next 2 days. I will turn the service over to the hospitalist team tomorrow. I will go plan of care with him. Large bilateral pleural effusion with edema to the lower extremity, scrotal edema and ascites secondary to acute on chronic systolic CHF EF 40% with pulmonary hypertension: Continue as above. Continue 1500 cc per day fluid restriction. Continue Lasix and Aldactone. Blood pressure stable. We need to add beta-sonia and MARTELL-inhibitor in the future if blood pressure more elevated. Discontinue Metzger catheter once scrotal edema significantly improved. This will likely occur in the next 24 hr. Paroxysmally atrial fibrillation, now normal sinus rhythm: Patient in normal sinus rhythm. Consider adding beta-sonia for rate control once blood pressure stable. Likely no need for chronic anti coagulation therapy. Would change Lovenox to DVT prophylaxis. Case discussed with cardiology Elevated troponin likely related to above, ischemic demand: Echo reviewed. Patient will likely require cardiac workup as an outpatient. Elevated bilirubin suspect underlying liver disease: Abdominal ultrasound unremarkable, no evidence of cirrhosis. Await FELY, HIV and hepatitis panel. Will discuss with GI. May need further evaluation by GI as an outpatient. Acute renal injury with electrolyte abnormalities including hypokalemia, hypophosphatemia, hypoalbumenia: Overall improved. Continue with Nephrology recommendations. Electrolyte protocol in place. Continue to monitor and adjust appropriately. Moderate protein malnutrition: Continue with dietary recommendations. Oral intake better. Anemia likely of chronic disease: Will monitor this closely. Left knee pain/erythema suspect cellulitis: Doubt gout as uric acid within normal range. Suspect cellulitis especially with some skin breakdown to the lower extremity. Will discontinue IV Zosyn. Will change to IV cefepime and vancomycin. Will monitor pro calcitonin and cellulitis. Will consult infectious disease for further evaluation and treatment. Time Spent Managing Pts Care (In Minutes): 55
[2020-04-14] MEDS ORDERED: FUROSEMIDE 40 MG TABLET PO SCH (09:00)
[2020-04-14] MEDS ORDERED: CEFEPIME 1 GM/VIAL IV SCH (09:00)
[2020-04-14] MEDS: VANCOMYCIN/NS 1 gm 1 GM/250 ML BAG IVPB SCH (09:49)
[2020-04-14] MEDS: POTASSIUM 25 MEQ EFFERV TAB PO SCH ×3 (09:49→21:22)
[2020-04-14] MEDS: LACTOBACILLUS/ACIDOPHILUS TAB PO SCH ×3 (09:49→21:21)
[2020-04-14] MEDS: FUROSEMIDE 40 MG TABLET PO SCH ×2 (09:49→17:14)
[2020-04-14] MEDS: SPIRONOLACTONE 25 MG TABLET PO SCH ×2 (09:49→21:21)
[2020-04-14] MEDS: CEFEPIME/SWI 1gm 10 ML IV SCH (09:49)
[2020-04-14] MEDS: ENOXAPARIN 40 MG/0.4 ML SQ SCH (09:50)
[2020-04-14] MEDS: ENSURE HIGH PROTEIN 237 ML CAN PO SCH (09:51)
[2020-04-14] MEDS: LOPERAMIDE HCL 2 MG CAPSULE PO PRN (10:27)
[2020-04-14 10:34] LABS: Blood Morphology Comment NOT SEEN (NOT SEEN); Platelet Estimate ADEQ; White Blood Cell Scan OK (OK)
--- NOTE | 2020-04-14 13:14 | P.PN ---
Subjective Date of Service: 04/14/20 Primary Care Provider: None Chief Complaint: Pleural effusion Subjective: No new changes, Tolerating diet Physical Examination - Vital Signs Temperature: 97.9 F Blood Pressure: 108/58 Pulse: 103 Respirations: 16 Pulse Ox (%): 91 - Physical Exam General: Alert, Oriented x3 HEENT: Atraumatic, Normocephalic Respiratory: Clear to auscultation bilaterally Cardiovascular: Regular rate/rhythm, Normal S1 S2 Gastrointestinal: Normal bowel sounds, Distended Musculoskeletal: Swelling Neurological: Normal speech, Cranial nerves 3-12 intact - Studies Microbiology Data (last 24 hrs): 04/10/20 15:25 Clean Catch Urine [place] Count - Final No growth. 04/10/20 15:25 Clean Catch Urine - Final No growth. Medications List Reviewed: Yes Assessment And Plan - Plan Severe hypokalemia-His potassium is better at 3.6 after starting aldactone and supplemental potassium. We will continue aggressive repletion and monitor closely. #CHF-Based on self reported issues as per pt. Lasix to be continued with scheduled albumin. we will continue to monitor. #Ascites-Etiology is yet to be determined. we will continue routine monitoring for now. Abd US to be reviewed. #Hypophosphatemia- replete. we will continue repletion and monitor as needed. #Diarrhea-Infectious vs inflammatory in origin. labs are not very convincing. #ARY vs CKD stage 3-Creatinine is elevated at 1.6 approx. he does have increased echogenicity on US and there is concern for cardiorenal syndrome type2/4. urine p/c is not very concerning at this point. we will continue routine monitoring. we will continue to avoid nephrotoxins and dose meds for eGFR. pending hepatitis and HIV tests. Cellulitis-started on vanc and cefepime for now. pending final culture reports. Possible Gout- trial of colchicine for acute flare of gout is advisable. Physician Review: Patient Assessed, Agree with Above Assessment and Plan
[2020-04-14] MEDS: COLCHICINE 0.6 MG TAB PO SCH ×2 (16:31→21:22)
[2020-04-14] MEDS: ENSURE ENLIVE 237 ML CAN PO SCH (21:00)
[2020-04-15 06:07] LABS: Absolute Lymphocytes (CBC) 0.8 K/uL (0.7-4.9); Basophils % 0.8 % (0-1.3); Lymphocytes % 5.5 % (15.3-44.8); MPV 10.1 fL (7.6-11.3); RBC Red Blood Cell Count 3.91 M/uL (4.33-5.43)
[2020-04-15] MEDS ORDERED: PANTOPRAZOLE 40MG TABLET PO SCH (06:30)
[2020-04-15 06:37] LABS: Albumin 1.5 g/dL (3.4-5.0); Bilirubin Total 4.3 mg/dL (0.2-1.0); Magnesium 1.9 mg/dL (1.8-2.4); Potassium 3.9 mmol/L (3.5-5.1); Protein, Total 5.7 g/dL (6.4-8.2)
[2020-04-15] MEDS: ENSURE ENLIVE 237 ML CAN PO SCH ×2 (09:00→21:00)
[2020-04-15] MEDS: POTASSIUM 25 MEQ EFFERV TAB PO SCH ×3 (10:11→21:25)
[2020-04-15] MEDS: SPIRONOLACTONE 25 MG TABLET PO SCH ×2 (10:12→21:00)
[2020-04-15] MEDS: COLCHICINE 0.6 MG TAB PO SCH ×2 (10:13→21:24)
[2020-04-15] MEDS: LACTOBACILLUS/ACIDOPHILUS TAB PO SCH ×3 (10:13→21:25)
[2020-04-15] MEDS: FUROSEMIDE 40 MG TABLET PO SCH ×2 (10:14→17:36)
[2020-04-15] MEDS: ENOXAPARIN 40 MG/0.4 ML SQ SCH (10:15)
[2020-04-15] MEDS: CEFEPIME/SWI 1gm 10 ML IV SCH (11:09)
[2020-04-15] MEDS: TRAMADOL HCL 50 MG TAB PO PRN (11:14)
--- NOTE | 2020-04-15 11:19 | P.PN ---
Subjective Date of Service: 04/15/20 Primary Care Provider: None Chief Complaint: Congestive heart failure swollen left knee Patient is not complaining of pain and swelling and tenderness of his left knee which occur during this admission S at his baseline Review of Systems General: Weakness Musculoskeletal: Other (Pain and swelling in the left knee) Physical Examination - Vital Signs Temperature: 98.3 F Blood Pressure: 112/64 Pulse: 104 Respirations: 18 Pulse Ox (%): 94 - Physical Exam General: Alert, Oriented x3 Respiratory: Clear to auscultation bilaterally Cardiovascular: Normal S1 S2, Edema Musculoskeletal: Other (Left knee is swollen and warm erythematous) - Studies Medications List Reviewed: Yes Assessment & Plan - Problems (Diagnosis) (1) Congestive heart failure Current Visit: Yes Status: Acute Plan: Patient has congestive heart failure is on diuretics vital signs oxygenation all satisfactory white count elevated Qualifiers: Heart failure type: systolic (2) Swollen L knee Current Visit: Yes Status: Acute Plan: Will have Dr. muna pandya evaluate him for a possible aspiration to rule out infection Physician Review: Patient Assessed, Agree with Above Assessment and Plan
--- NOTE | 2020-04-15 14:41 | P.PN ---
Subjective Date of Service: 04/15/20 Primary Care Provider: None Chief Complaint: Congestive heart failure swollen left knee Subjective: C/O voiced (worsneing left knee pain and redness) Physical Examination - Vital Signs Temperature: 98.3 F Blood Pressure: 112/64 Pulse: 104 Respirations: 18 Pulse Ox (%): 94 - Physical Exam General: Alert, In no apparent distress, Oriented x3, Cachectic HEENT: Atraumatic, Normocephalic Neck: Supple, 2+ carotid pulse no bruit Respiratory: Clear to auscultation bilaterally, Normal air movement Cardiovascular: Edema (dec to 1= ) Gastrointestinal: Normal bowel sounds, Soft and benign, Non-distended Musculoskeletal: Swelling, Erythema (left knee- worsening ), Tenderness Neurological: Normal speech - Studies Medications List Reviewed: Yes Assessment And Plan - Current Problems (Diagnosis) (1) ARF (acute renal failure) Current Visit: Yes Status: Acute (2) Congestive heart failure Current Visit: Yes Status: Acute Qualifiers: Heart failure type: systolic (3) Pleural effusion Current Visit: Yes Status: Acute (4) Swollen L knee Current Visit: Yes Status: Acute Physician Review: Patient Assessed, Agree with Above Assessment and Plan Physician Review Additional Text: Assessment Diarrhea, weakness, ascites secondary to colitis complicated with intraperitoneal free air noted on CT scan without identifiable perforation etiology unknown, likely related to electrolyte dysfunction and acute on chronic systolic CHF, ejection fraction 40% with pulmonary hypertension noted Large bilateral pleural effusion with edema to the lower extremity, scrotal edema and ascites secondary to acute on chronic systolic CHF Paroxysmally atrial fibrillation now normal sinus rhythm Elevated troponin likely related to above, ischemic demand Elevated bilirubin suspect underlying liver disease Acute renal injury with electrolyte abnormalities including hypokalemia, hypophosphatemia, hypoalbumenia Moderate protein malnutrition Anemia likely of chronic disease Left knee pain with erythema suspect cellulitis Plan: -Volume status improivnb - hypolabuminemia contributing to ansarca - follow r/o proteinuria D if nephrotic syndrome r/o , will need doses of albumin - not classical for cardiorenal syndrome pattern -worsneing creatinine to 1.6 now , follow trend - may need reduce ddiuretics dosage soon - worsneing knee erthema and pain noted , worry about hemoarthrosis -will obtain CT of the knee today and follow -dc colcgicine since gouty arthritis less likely c/w empirical abx -renally dose vanco -potassium controlled , c/w aldactone and kcl
--- NOTE | 2020-04-15 16:00 | RAD REPORT ---
EXAM DESCRIPTION: CT - Knee Left Wo Con - 04/15/2020 3:35 pm CLINICAL HISTORY: left knee erythema r/o hemoarthrosis Pain and swelling. COMPARISON: Knee Left 2 View dated 04/12/2020 FINDINGS: There is skin thickening is present with subcutaneous fluid and edema present. This appear s to involve the soft tissues surrounding the knee, greatest medially. The medial quadriceps musculat ure appears mildly edematous and thickened. No intraarticular joint effusion is present. No fracture, dislocation aggressive marrow lesion. IMPRESSION: No significant intra-articular joint fluid is seen. Moderate edema and soft tissue swelling is seen involving the anterior aspect of the knee, greatest m edially. All CT scans are performed using dose optimization technique as appropriate and may include automated exposure control or mA/KV adjustment according to patient size.
--- NOTE | 2020-04-15 19:19 | CON ---
Date of Consultation: 04/15/2020 History Of Present Illness: This is my first time seeing this patient to my knowledge. He is a 64-y ear-old male, who has multiple medical problems, who was apparently admitted with the possibility of an intraabdominal pathology. He also at that time, according to him, had a red left knee. He says t hat he does not remember how his knee became red. He does not remember injuring his knee. He does n ot remember really anything about his knee. He says it really has not changed since admission and he has been marked by a ota. Per his report, definitely does not appear to be going past thes e cam, which I think was done several days ago. His white blood cell count was 15,000, but now is down to 11. Gentle range of motion of his knee does not cause significant pain, although he says he has pain at times. The anterior aspect of his knee does not have any fluctuance. It is quite purpli sh. It is very difficult to tell whether or not it is resolving or erythematous or whether this is a bruise. He has some ice on it and holds it in a position of flexion. There is definitely no effusi on. Review of x-rays does not demonstrate any fractures, dislocations, or significant change from no rmal. Assessment: This is a 64-year-old male, now with a red painful left knee. This is somewhat purplish , unknown whether this is from trauma or from infection. Definitely, no signs of prepatellar bursiti s. At this point, definitely no operative interventions. I will speak with Dr. Ferreira regarding tr eatment for cellulitis as I believe that this could be added to his current regimen, which I believe is mostly antibiotics for intraabdominal pathology. He may wish to continue to use the same antibiot ics or may wish to switch to more antibiotic spectrum of skin. Otherwise, I expect that they will reconsult me if he fails to improve. I think h e can be weightbearing as tolerated. SE/MODL Voice ID: [id number] Report ID: [id number]
[2020-04-15 20:25] LABS: HBsAG Nonreactive (Nonreactive)
[2020-04-15] MEDS: VANCOMYCIN/NS 1 gm 1 GM/250 ML BAG IVPB SCH (21:26)
[2020-04-15] MEDS: LOPERAMIDE HCL 2 MG CAPSULE PO PRN (22:03)
[2020-04-15 22:09] LABS: HIV AG/AB 4TH GEN Non-reactive (Non-reactive)
[2020-04-16 05:16] LABS: Absolute Lymphocytes (CBC) 0.7 K/uL (0.7-4.9); Basophils % 0.2 % (0-1.3); Hematocrit 35.3 % (39.6-49.0); Lymphocytes % 3.7 % (15.3-44.8); MPV 9.6 fL (7.6-11.3); RBC Red Blood Cell Count 4.03 M/uL (4.33-5.43)
[2020-04-16 05:44] LABS: Albumin 1.3 g/dL (3.4-5.0); Bilirubin Total 4.2 mg/dL (0.2-1.0); Magnesium 1.9 mg/dL (1.8-2.4); Potassium 4.6 mmol/L (3.5-5.1); Protein, Total 5.4 g/dL (6.4-8.2)
[2020-04-16 08:20] LABS: Phosphorus 3.7 mg/dL (2.5-4.9)
[2020-04-16] MEDS: CEFEPIME/SWI 1gm 10 ML IV SCH (09:00)
--- NOTE | 2020-04-16 10:21 | P.PN ---
Subjective Date of Service: 04/16/20 Primary Care Provider: None Chief Complaint: Congestive heart failure swollen left knee Patient is doing better his left knee has less tender he is able to ambulate Review of Systems Unremarkable General: Weakness Physical Examination - Vital Signs Temperature: 97.0 F Blood Pressure: 97/60 Pulse: 92 Respirations: 18 Pulse Ox (%): 95 - Physical Exam General: Alert, In no apparent distress, Oriented x3 Neck: Supple Respiratory: Clear to auscultation bilaterally Cardiovascular: No edema, Normal S1 S2 Musculoskeletal: Other (Left knee is in a rattle although it seemed to have improved) - Studies Microbiology Data (last 24 hrs): 04/10/20 16:10 Blood - Blood Aerobic Blood Culture - Final No growth in 5 days. 04/10/20 16:10 Blood - Blood Anaerobic Blood Culture - Final No growth in 5 days. 04/10/20 15:50 Blood - Blood Aerobic Blood Culture - Final No growth in 5 days. 04/10/20 15:50 Blood - Blood Anaerobic Blood Culture - Final No growth in 5 days. Medications List Reviewed: Yes Assessment & Plan - Problems (Diagnosis) (1) Congestive heart failure Current Visit: Yes Status: Acute Plan: Doing better neurological tests for HIV hepatitis all negative and use Lasix to 40 mg once a day and spironolactone renal impairment creatinine is slightly worse Lasix has been reduced Qualifiers: Heart failure type: systolic (2) Pain, joint, knee, left Current Visit: Yes Status: Acute Plan: Seen by orthopedics no evidence of any effusion CT scan of the knee done the have superficial cellulitis exchange teller to p.o. level levofloxacin patient does not appear to be septic although is white count is minimally elevated continue to monitor his ambulate for discharge Physician Review: Patient Assessed, Agree with Above Assessment and Plan Physician Review Additional Text: Assessment Diarrhea, weakness, ascites secondary to colitis complicated with intraperitoneal free air noted on CT scan without identifiable perforation etiology unknown, likely related to electrolyte dysfunction and acute on chronic systolic CHF, ejection fraction 40% with pulmonary hypertension noted Large bilateral pleural effusion with edema to the lower extremity, scrotal edema and ascites secondary to acute on chronic systolic CHF Paroxysmally atrial fibrillation now normal sinus rhythm Elevated troponin likely related to above, ischemic demand Elevated bilirubin suspect underlying liver disease Acute renal injury with electrolyte abnormalities including hypokalemia, hypophosphatemia, hypoalbumenia Moderate protein malnutrition Anemia likely of chronic disease Left knee pain with erythema suspect cellulitis Plan: -Volume status improivnb - hypolabuminemia contributing to ansarca - follow r/o proteinuria D if nephrotic syndrome r/o , will need doses of albumin - not classical for cardiorenal syndrome pattern -worsneing creatinine to 1.6 now , follow trend - may need reduce ddiuretics dosage soon - worsneing knee erthema and pain noted , worry about hemoarthrosis -will obtain CT of the knee today and follow -dc colcgicine since gouty arthritis less likely c/w empirical abx -renally dose vanco -potassium controlled , c/w aldactone and kcl
[2020-04-16] MEDS: POTASSIUM 25 MEQ EFFERV TAB PO SCH ×3 (10:23→20:55)
[2020-04-16] MEDS: LACTOBACILLUS/ACIDOPHILUS TAB PO SCH ×3 (10:24→20:55)
[2020-04-16] MEDS: COLCHICINE 0.6 MG TAB PO SCH ×2 (10:25→20:55)
[2020-04-16] MEDS: SPIRONOLACTONE 25 MG TABLET PO SCH (10:25)
[2020-04-16] MEDS: LOPERAMIDE HCL 2 MG CAPSULE PO PRN (10:25)
[2020-04-16] MEDS: FUROSEMIDE 40 MG TABLET PO SCH (10:26)
[2020-04-16] MEDS: ENSURE ENLIVE 237 ML CAN PO SCH ×2 (10:27→20:55)
[2020-04-16] MEDS: ENOXAPARIN 40 MG/0.4 ML SQ SCH (10:36)
[2020-04-16] MEDS: TRAMADOL HCL 50 MG TAB PO PRN (11:15)
--- NOTE | 2020-04-16 16:40 | P.PN ---
Subjective Date of Service: 04/16/20 Primary Care Provider: None Chief Complaint: Congestive heart failure swollen left knee Subjective: No new changes, No C/O voiced Physical Examination - Vital Signs Temperature: 97.6 F Blood Pressure: 133/77 Pulse: 80 Respirations: 18 Pulse Ox (%): 98 - Physical Exam General: Alert, In no apparent distress, Cachectic HEENT: Atraumatic, Normocephalic Neck: 2+ carotid pulse no bruit, JVD not distended Cardiovascular: No edema, Regular rate/rhythm, Normal S1 S2 Gastrointestinal: Normal bowel sounds, Soft and benign, Non-distended Musculoskeletal: No clubbing, No swelling Integumentary: Tenderness/swelling, Erythema Neurological: Normal speech, Normal strength at 5/5 x4 extr - Studies Microbiology Data (last 24 hrs): 04/10/20 16:10 Blood - Blood Aerobic Blood Culture - Final No growth in 5 days. 04/10/20 16:10 Blood - Blood Anaerobic Blood Culture - Final No growth in 5 days. 04/10/20 15:50 Blood - Blood Aerobic Blood Culture - Final No growth in 5 days. 04/10/20 15:50 Blood - Blood Anaerobic Blood Culture - Final No growth in 5 days. Medications List Reviewed: Yes Assessment & Plan - Problems (Diagnosis) (1) ARF (acute renal failure) Current Visit: Yes Status: Acute (2) Congestive heart failure Current Visit: Yes Status: Acute Qualifiers: Heart failure type: systolic (3) Pleural effusion Current Visit: Yes Status: Acute (4) Swollen L knee Current Visit: Yes Status: Acute Physician Review: Patient Assessed, Agree with Above Assessment and Plan Physician Review Additional Text: Assessment Diarrhea, weakness, ascites secondary to colitis complicated with intraperitoneal free air noted on CT scan without identifiable perforation etiology unknown, likely related to electrolyte dysfunction and acute on chronic systolic CHF, ejection fraction 40% with pulmonary hypertension noted Large bilateral pleural effusion with edema to the lower extremity, scrotal edema and ascites secondary to acute on chronic systolic CHF Paroxysmally atrial fibrillation now normal sinus rhythm Elevated troponin likely related to above, ischemic demand Elevated bilirubin suspect underlying liver disease Acute renal injury with electrolyte abnormalities including hypokalemia, hypophosphatemia, hypoalbumenia Moderate protein malnutrition Anemia likely of chronic disease Left knee pain with erythema suspect cellulitis Plan: -Volume status improving , now clinically dry -cr worsening to 1.7 - will reduce lasix to 20 mg daily po - hypoalbuminemia contributing to anasarca - follow r/o proteinuria if nephrotic syndrome r/o , will need doses of albumin - not classical for cardiorenal syndrome pattern -c/w empirical abx -renally dose vanco -potassium controlled , c/w aldactone and kcl
[2020-04-16 21:29] LABS: Albumin, (SPE) 2.1 g/dL (3.8-4.8); Alpha-1-Globulins 0.6 g/dL (0.2-0.3); Alpha-2-Globulins 0.7 g/dL (0.5-0.9); INTERPRETATION REPORT
[2020-04-17] MEDS: TRAMADOL HCL 50 MG TAB PO PRN ×2 (01:04→19:50)
[2020-04-17 04:19] LABS: Absolute Lymphocytes (CBC) 0.6 K/uL (0.7-4.9); Basophils % 0.5 % (0-1.3); Hematocrit 34.7 % (39.6-49.0); Lymphocytes % 3.8 % (15.3-44.8); MPV 10.1 fL (7.6-11.3); RBC Red Blood Cell Count 4.02 M/uL (4.33-5.43)
[2020-04-17 04:33] LABS: Albumin 1.4 g/dL (3.4-5.0); Bilirubin Total 4.1 mg/dL (0.2-1.0); Potassium 4.6 mmol/L (3.5-5.1); Protein, Total 5.8 g/dL (6.4-8.2)
--- NOTE | 2020-04-17 08:21 | P.PN ---
Subjective Date of Service: 04/17/20 Primary Care Provider: None Chief Complaint: Congestive heart failure swollen left knee Subjective: No new changes, No C/O voiced Physical Examination - Vital Signs Temperature: 98.2 F Blood Pressure: 111/67 Pulse: 98 Respirations: 20 Pulse Ox (%): 95 - Physical Exam General: Alert, Oriented x3 HEENT: Atraumatic, Normocephalic, PERRLA Neck: Supple Respiratory: Clear to auscultation bilaterally Cardiovascular: Regular rate/rhythm, Normal S1 S2 Gastrointestinal: Normal bowel sounds Musculoskeletal: Erythema (of the left knee.), Tenderness Neurological: Normal speech, Normal strength at 5/5 x4 extr, Cranial nerves 3-12 intact - Studies Medications List Reviewed: Yes Assessment And Plan - Plan Severe hypokalemia-His potassium is better at 4.6 after starting aldactone and supplemental potassium. We will continue to monitor closely. #CHF-Based on self reported issues as per pt. Lasix dose adjusted after worsening of renal function as he has had significant reduction in leg swelling. #Ascites-Etiology is yet to be determined. we will continue routine monitoring for now. Abd US to be reviewed. #Hypophosphatemia- replete. we will continue repletion and monitor as needed. #Diarrhea-Infectious vs inflammatory in origin. labs are not very convincing. Now fully resolved. #ARY vs CKD stage 3-Creatinine is slightly worsening at 1.9 approx. at this point he does seem to have CKD. he does have increased echogenicity on US and there is concern for cardiorenal syndrome type2/4. urine p/c is not very concerning at this point. we will continue routine monitoring. we will continue to avoid nephrotoxins and dose meds for eGFR. HIV and hepatitis panel are both negative. Cellulitis-started on vanc and cefepime for now. pending final culture reports. Physician Review: Patient Assessed, Agree with Above Assessment and Plan
[2020-04-17] MEDS ORDERED: POTASSIUM 25 MEQ EFFERV TAB PO SCH (09:00)
[2020-04-17] MEDS ORDERED: FUROSEMIDE 40 MG TABLET PO SCH (09:00)
[2020-04-17] MEDS: FUROSEMIDE 20 MG TABLET PO SCH (09:08)
[2020-04-17] MEDS: COLCHICINE 0.6 MG TAB PO SCH ×2 (09:09→19:50)
[2020-04-17] MEDS: LACTOBACILLUS/ACIDOPHILUS TAB PO SCH ×3 (09:09→19:49)
[2020-04-17] MEDS: SPIRONOLACTONE 25 MG TABLET PO SCH (09:09)
[2020-04-17] MEDS: levoFLOXacin 500 MG TAB PO SCH (09:09)
[2020-04-17] MEDS: ENSURE ENLIVE 237 ML CAN PO SCH ×2 (09:10→19:56)
[2020-04-17] MEDS: ENOXAPARIN 40 MG/0.4 ML SQ SCH (09:10)
[2020-04-17] MEDS: POTASSIUM 25 MEQ EFFERV TAB PO SCH ×3 (09:22→19:51)
--- NOTE | 2020-04-17 14:37 | CON ---
History Of Present Illness: This is a 64-year-old male. I was consulted for left knee infection and the patient is also having loose motion, initially came in with generalized weakness and diarrhea an d symptoms of congestive heart failure. The patient denies any headache, nausea, vomiting. Continue d to have diarrhea, had 1 loose bowel movement earlier today. Also had left knee infection. The pat vincent denies any fevers, not able to eat well. Past Medical History: Muscle wasting, congestive heart failure, questionable. Family History: Noncontributory. Medications: Colchicine, furosemide, Lovenox, Glucagon, Lactinex, Levaquin, Imodium, Ensure, Zofran, K-Lyte, Mylicon, Aldactone, and Ultram. Allergies: NO KNOWN DRUG ALLERGIES. Review of Systems: A 10-point review was performed. Physical Examination: General: This is a 64-year-old male, lying in bed, not in any acute cardiopulmonary distress. Vital Signs: Temperature 97.4, pulse 94, respirations 16, blood pressure 90/60. HEENT: Unremarkable. Neck: Supple. Lungs: Basal crackles. Heart: S1, S2. Regular. Abdomen: Soft. Bowel sounds hyperactive. Extremities: Left knee erythematous changes with swelling. Laboratory Data: Shows WBC 15,700, hemoglobin 11.7, platelets 158. Chemistry shows sodium 136, pota ssium 4.6, chloride 95, bicarb 34, BUN 30, creatinine 1.8, glucose is 70. Total bilirubin is 4.1, al bumin is 1.4. Assessment And Plan: This is a 64-year-old male with elevated liver function test and severe protein -calorie malnourishment. CT abdomen on admission shows the patient has free intraperitoneal air, als o chest x-ray shows interstitial opacification pattern. A CT of chest done on admission showed the p atient has large bilateral pleural effusions with partial atelectasis of the lower lobe and alveolar edema. Concern regarding diarrhea, we will order Clostridium difficile toxin to be checked. The pat vincent has generalized weakness with severe protein-calorie deficiency. Consider evaluation by GI to e valuate his diarrhea. Continue supportive care. We will follow the patient as needed. NF/MODL Voice ID: [id number] Report ID: [id number]
[2020-04-18] MEDS ORDERED: HYDROCORTISONE SUC 100 MG INJ IV ONE (09:16)
[2020-04-18] MEDS ORDERED: WATER FOR INJ,STERILE 10 ML IV SCH (10:00)
[2020-04-18] MEDS: TRAMADOL HCL 50 MG TAB PO PRN ×2 (10:06→23:43)
[2020-04-18] MEDS: ENSURE ENLIVE 237 ML CAN PO SCH ×2 (10:06→20:24)
[2020-04-18] MEDS: SPIRONOLACTONE 25 MG TABLET PO SCH (10:07)
[2020-04-18] MEDS: POTASSIUM 25 MEQ EFFERV TAB PO SCH ×3 (10:07→20:25)
[2020-04-18] MEDS: LACTOBACILLUS/ACIDOPHILUS TAB PO SCH ×3 (10:07→20:25)
[2020-04-18] MEDS: levoFLOXacin 500 MG TAB PO SCH (10:07)
[2020-04-18] MEDS: FUROSEMIDE 20 MG TABLET PO SCH (10:08)
[2020-04-18] MEDS: COLCHICINE 0.6 MG TAB PO SCH ×2 (10:11→20:24)
[2020-04-18] MEDS: ENOXAPARIN 30 MG/0.3 ML SQ SCH (10:11)
[2020-04-18] MEDS ORDERED: HYDROMORPHONE HCL 0.5 MG/0.5 ML INJ IV ONE (12:00)
[2020-04-18] MEDS ORDERED: NA CHLORIDE 0.9% 500 ML IV ONE ×2 (12:33→12:34)
[2020-04-18] MEDS ORDERED: ALBUMIN HUMAN 25% 100 ML IV ONE ×2 (12:33→12:34)
--- NOTE | 2020-04-18 15:14 | P.PN ---
Subjective Date of Service: 04/18/20 Pts doing well; CHFs Review of Systems 10-point ROS is otherwise unremarkable Physical Examination - Vital Signs Temperature: 97.3 F Blood Pressure: 110/70 Pulse: 91 Respirations: 19 Pulse Ox (%): 98 - Physical Exam General: Alert, In no apparent distress, Oriented x3, Severe distress Respiratory: Clear to auscultation bilaterally, Normal air movement Cardiovascular: Regular rate/rhythm, Normal S1 S2, No murmurs Gastrointestinal: Normal bowel sounds, Soft and benign, Non-distended, No tenderness Musculoskeletal: No clubbing, No tenderness, Swelling Neurological: Sensation intact, Cranial nerves 3-12 intact - Studies Medications List Reviewed: Yes Assessment & Plan - Advance Directives Does patient have a Living Will: No Does patient have a Durable POA for Healthcare: No Physician Review: Patient Assessed, Agree with Above Assessment and Plan
[2020-04-18] MEDS: LOPERAMIDE HCL 2 MG CAPSULE PO PRN (15:20)
[2020-04-18 16:46] LABS: Absolute Lymphocytes (CBC) 0.3 K/uL (0.7-4.9); Basophils % 0.2 % (0-1.3); Hematocrit 35.5 % (39.6-49.0); Lymphocytes % 1.9 % (15.3-44.8); MPV 10.3 fL (7.6-11.3); RBC Red Blood Cell Count 4.05 M/uL (4.33-5.43)
[2020-04-18 17:28] LABS: Albumin 1.9 g/dL (3.4-5.0); Bilirubin Total 4.6 mg/dL (0.2-1.0); Magnesium 2.2 mg/dL (1.8-2.4); Potassium 5.3 mmol/L (3.5-5.1); Protein, Total 6.7 g/dL (6.4-8.2)
[2020-04-18 19:16] LABS: Blood Morphology Comment NOT SEEN (NOT SEEN); Platelet Estimate ADEQ; White Blood Cell Scan OK (OK)
[2020-04-18] MEDS ORDERED: HYDROCORTISONE SUC 100 MG INJ IV SCH (21:00)
[2020-04-19 05:55] LABS: Protime INR 1.15
[2020-04-19 05:59] LABS: Absolute Lymphocytes (CBC) 0.5 K/uL (0.7-4.9); Basophils % 0.2 % (0-1.3); Hematocrit 34.8 % (39.6-49.0); Lymphocytes % 2.9 % (15.3-44.8); MPV 9.9 fL (7.6-11.3)
[2020-04-19] MEDS: TRAMADOL HCL 50 MG TAB PO PRN (06:07)
[2020-04-19 06:17] LABS: ALT/SGPT 12 U/L (12-78); AST/SGOT 27 U/L (15-37); Albumin 1.6 g/dL (3.4-5.0); Alkaline Phosphatase 273 U/L (45-117); BUN Blood Urea Nitrogen 42 mg/dL (7-18); Bicarbonate 30 mmol/L (21-32); Bilirubin Total 3.9 mg/dL (0.2-1.0); Glucose Level 119 mg/dL (74-106); Magnesium 2.2 mg/dL (1.8-2.4); Phosphorus 5.9 mg/dL (2.5-4.9); Protein, Total 6.4 g/dL (6.4-8.2); Sodium Level 135 mmol/L (136-145)
[2020-04-19 06:38] LABS: NT PRO-BNP > 175000 pg/mL (<125)
[2020-04-19 06:39] LABS: Potassium 5.6 mmol/L (3.5-5.1)
[2020-04-19 07:15] LABS: Anisocytosis 1+; Blood Morphology Comment NOTED (NOT SEEN); Platelet Estimate ADEQ
--- NOTE | 2020-04-19 07:40 | P.PN ---
Subjective Date of Service: 04/18/20 Patient is clinically feeling better but his lab testing is not really improving. His diarrhea is down did twice a day. His left knee pain is better with the colchicine and steroids. There was not a lot of fluid on that need to begin with. His liver function testing indicates cirrhosis of the liver. His coagulation profile is elevated, his total bilirubin is elevated, and albumin is very low. Unsure if he has cholangitis or cardiac cirrhosis. Cholangitis is possible with his elevated white blood cell count and his elevated alkaline phosphatase. His BNP is significantly elevated and he has elevated pulmonary pressures. He has elevated JVP on exam and bilateral pleural effusions as well. His ejection fraction was 40% which by itself would probably not explain his right sided heart failure symptoms. CXR has not been repeated in about 1 week- will repeat to evaluate pleural effusion. Review of Systems 10-point ROS is otherwise unremarkable Physical Examination - Vital Signs Temperature: 98.0 F Blood Pressure: 116/71 Pulse: 98 Respirations: 16 Pulse Ox (%): 95 - Physical Exam General: Alert, In no apparent distress, Oriented x3 Respiratory: Diminished, Crackles/rales Cardiovascular: Regular rate/rhythm, Normal S1 S2, No murmurs Gastrointestinal: Normal bowel sounds, Soft and benign, No tenderness, No rebound, No guarding, Distended Musculoskeletal: No clubbing, Swelling, Erythema, Tenderness Neurological: Sensation intact, Cranial nerves 3-12 intact, Abnormal gait, Abnormal strength - Studies Medications List Reviewed: Yes Assessment & Plan - Problems (Diagnosis) (1) Cirrhosis of liver Current Visit: Yes Status: Acute (2) Diarrhea Current Visit: Yes Status: Acute (3) ARF (acute renal failure) Current Visit: Yes Status: Acute (4) Congestive heart failure Current Visit: Yes Status: Acute Qualifiers: Heart failure type: systolic (5) Pain, joint, knee, left Current Visit: Yes Status: Acute (6) Pleural effusion Current Visit: Yes Status: Acute (7) Cachexia associated with cardiac disease Current Visit: Yes Status: Acute (8) Leukocytosis Current Visit: Yes Status: Acute - Plan Plan: 1. MRCP to evaluate for possible cholangitis 2. Hepatitis profile and HIV are negative. Check cholangitis autoantibodies 3. Diarrhea has improved. Continue with Imodium and patient also on pro biotics. No leukocytes in the stool. Cultures have been negative 4. Patient continues to 3rd space a lot of fluid. We will repeat his chest x- ray. BNP is significantly elevated. Patient also with elevated JVP. He could have cardiac cirrhosis from his right-sided heart failure. Will discuss with Cardiology if patient needs further evaluation. Echo did show EF of 40%. 5. Knee pain is improved with colchicine and steroids. It is possible he had gout in the setting of acute renal insufficiency. Serum uric acid level was normal. 24 hr urine for uric acid was not obtained. 6. Continue with physical therapy 7. Steroids may improve his appetite when and he is eating very little at this time. 8. May also need to do Doppler of the liver to evaluate for hepatic vein thrombosis. Patient does have a coagulopathy secondary to the liver disease so I would suspect this is unlikely 9. GI and DVT prophylaxis Discharge Plan: Group Home Plan to discharge in: Greater than 2 days - Advance Directives Does patient have a Living Will: No Does patient have a Durable POA for Healthcare: No - Code Status/Comfort Care Code Status Assessed: Yes Code Status: Full Code Physician Review: Patient Assessed, Agree with Above Assessment and Plan Critical Care: No Time Spent Managing PTS Care (In Minutes): 35
[2020-04-19] MEDS ORDERED: SOD POLYSTYREN SUL 15 GM/60 ML UCUP PO ONE (07:43)
--- NOTE | 2020-04-19 07:50 | P.PN ---
Subjective Date of Service: 04/19/20 Primary Care Provider: None Chief Complaint: Congestive heart failure swollen left knee Physical Examination - Vital Signs Temperature: 98.0 F Blood Pressure: 116/71 Pulse: 98 Respirations: 16 Pulse Ox (%): 95 - Physical Exam General: Alert, Oriented x3 HEENT: Atraumatic, Normocephalic Neck: Supple Respiratory: Clear to auscultation bilaterally Cardiovascular: Regular rate/rhythm, Normal S1 S2 Gastrointestinal: Normal bowel sounds Musculoskeletal: Tenderness, Other (slightly swollen left knee.) Neurological: Normal speech, Cranial nerves 3-12 intact - Studies Medications List Reviewed: Yes Assessment And Plan - Plan Severe hypokalemia-He is now hyperkalemic with potassium of 5.6. he mcfarland his spironolactone and KCl doses yesterday. He have held is aldactone and KCl supplements since then. We will administer Kayexalate 30g PO today. we will also repeat his potassium level later today. We will continue to monitor closely. #CHF-We will review his lasix doses. #Ascites-Etiology is yet to be determined. consideration for right heart failure for now. we will continue routine monitoring for now. #Hypophosphatemia- replete. we will continue to monitor as needed. #Diarrhea-Prn immodium started. Colchicine to be held. #ARY vs CKD stage 3-Creatinine is worsening at 2.4 today. He did have episode of hypotension yesterday. we will continue routine monitoring. we will continue to avoid nephrotoxins and dose meds for eGFR. HIV and hepatitis panel are both negative. Cellulitis-started on vanc and cefepime for now. Blood culture negative. we will monitor. Physician Review: Patient Assessed, Agree with Above Assessment and Plan
[2020-04-19] MEDS ORDERED: ALBUMIN HUMAN 25% 12.5 GM, FUROSEMIDE 100 MG in NA CHLORIDE 0.9% 40 ML IV SCH (10:00)
--- NOTE | 2020-04-19 10:02 | RAD REPORT ---
EXAM DESCRIPTION: MRI - Cholangiogram - 04/19/2020 9:43 am CLINICAL HISTORY: cirrhosis; unknown etiology COMPARISON: Abdomen Pelvis W Contrast dated 04/10/2020; Chest For Pe Angio dated 04/10/2020 FINDINGS: Three-dimensional MRCP was performed using maximum intensity projection reconstruction on the same work station. No intrahepatic biliary tree dilatation is seen. The common bile duct is normal caliber without evide nce of retained stone, stricture or mass. The pancreatic duct is not pathologically dilated. The gallbladder is unremarkable. Mild ascites is noted. Benign renal cysts are present. Small bilateral pleural effusions. IMPRESSION: No biliary tree abnormality of significance is detected.
[2020-04-19] MEDS: ENOXAPARIN 30 MG/0.3 ML SQ SCH (10:15)
[2020-04-19] MEDS: PIPER/TAZO/NS 2.25gm 2.25 GM/50 ML BAG IVPB SCH ×3 (10:15→19:41)
[2020-04-19] MEDS: ENSURE ENLIVE 237 ML CAN PO SCH ×2 (10:16→21:11)
[2020-04-19] MEDS: LACTOBACILLUS/ACIDOPHILUS TAB PO SCH ×3 (10:16→21:11)
[2020-04-19] MEDS: COLCHICINE 0.6 MG TAB PO SCH (10:16)
[2020-04-19] MEDS: HYDROCORTISONE SUC 100 MG INJ IV SCH ×2 (10:16→21:10)
[2020-04-19] MEDS: levoFLOXacin 500 MG TAB PO SCH (10:17)
--- NOTE | 2020-04-19 10:52 | RAD REPORT ---
EXAM DESCRIPTION: RAD - Chest Single View - 04/19/2020 10:19 am CLINICAL HISTORY: pneumonia Chest pain. COMPARISON: Chest Single View dated 04/13/2020; Abdomen 1 View (KUB) dated 04/12/2020; Chest Single View dated 04/10/2020 FINDINGS: Portable technique limits examination quality. Mild bilateral lower lobe lung opacities are present, greater on the left, suspicious for infiltrate/ pneumonia. The heart is mildly enlarged in size. No displaced fractures.
[2020-04-19 11:40] LABS: Absolute Lymphocytes (CBC) 0.4 K/uL (0.7-4.9); Basophils % 0.1 % (0-1.3); Hematocrit 36.3 % (39.6-49.0); Lymphocytes % 2.1 % (15.3-44.8); MPV 9.7 fL (7.6-11.3); RBC Red Blood Cell Count 4.13 M/uL (4.33-5.43)
[2020-04-19 11:49] LABS: Potassium 5.5 mmol/L (3.5-5.1)
[2020-04-19 12:08] LABS: C.diff Antigen/Toxin Ag neg : Tox neg (NEG : NEG)
--- NOTE | 2020-04-19 12:17 | PN ---
Subjective: The patient lying in bed, continue to have diarrhea. No new other complaints. The sanchez ent is somewhat not able to answer questions like on my previous visit stating many times when I aske d him question he was staring in other direction and not responding properly. Objective: Vital Signs: Temperature 98, pulse 98, respirations 16, blood pressure 116/71. Abdomen: Soft. Bowel sounds present. Laboratory Data: Shows WBC 16,700, hemoglobin 11.5, platelets are 248. Chemistry shows sodium 135, potassium 5.6, chloride 97, bicarb 30, BUN 42, creatinine 2.48, glucose is 119, total bilirubin is 3. 9, albumin level is 1.6. Micro data, cultures are negative up-to-date. The patient also had a CT scan of his knee, which show ed no significant intra-articular joint fluid, moderate edema and soft tissue swelling. Chest x-ray done today showed mild bilateral lower lobe lung opacities. MRI with cholangiogram shows no biliary tree abnormalities. Assessment/plan: Persistent diarrhea in a 64-year-old male with leukocytosis and renal insufficiency . The patient is being followed by renal team for severe hypokalemia. The patient also has leukocyt osis, possibly due to colitis versus liver disease with elevated bilirubin. I will recommend to have GI workup done. Continue supportive care. We will follow the patient as needed. Currently, the isabella barrett is getting Levaquin and Zosyn. We will recommend to discontinue Levaquin at this time, if the patient continued to be on Zosyn. Prognosis, guarded. We will follow the patient as needed. NF/MODL Voice ID: [id number] Report ID: [id number]
[2020-04-19 13:25] LABS: Platelet Estimate ADEQ; White Blood Cell Scan OK (OK)
[2020-04-19 13:26] LABS: Anisocytosis 1+; Blood Morphology Comment NOTED (NOT SEEN); Target Cells 1+
[2020-04-19] MEDS ORDERED: Levofloxacin500mg IV 500 MG/100 ML BAG IV ONE (13:26)
[2020-04-19 14:48] LABS: Albumin 1.8 g/dL (3.4-5.0); Protein, Total 6.9 g/dL (6.4-8.2)
[2020-04-19] MEDS ORDERED: ALBUMIN HUMAN 25% 100 ML IV ONE (16:00)
--- NOTE | 2020-04-19 17:23 | RAD REPORT ---
EXAM DESCRIPTION: CT - Head Brain Wo Cont - 04/19/2020 4:39 pm CLINICAL HISTORY: AMS COMPARISON: No comparisons TECHNIQUE: Axial 5 mm thick images of the head were obtained without IV contrast. All CT scans are performed using dose optimization technique as appropriate and may include automated exposure control or mA/KV adjustment according to patient size. FINDINGS: No intracranial hemorrhage is present. No cortical edema or sulcal effacement. No acute co rtical based infarction. No significant atrophy changes identified. No significant chronic ischemic c hange. In the left parietal lobe adjacent to the trigone left lateral ventricle there is a 3.2 centim eter thin-walled homogeneous fluid attenuation mass. A similar cystic structure 11 mm in size is pres ent adjacent to the frontal horn right lateral ventricle. No associated calcification or fat componen t. No thickened septations. The cystic masses may represent long-standing porencephalic cysts, neurog lial cyst or possibly cystic encephalomalacia from an ischemic injury. None of the suspected etiologi es are of acute clinical significance. Patient acute symptoms are not likely related to these finding s. Ventricles are normal. Mastoid air cells and visualized portions of the paranasal sinuses are clear. No acute bony findings. IMPRESSION: No hemorrhage or suspicious mass lesion. No acute cortical based infarction. 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 Neither i s regarded as clinically significant.
[2020-04-19] MEDS ORDERED: LORazepam 2 MG/ML VIAL IV ONE (21:00)
[2020-04-19] MEDS ORDERED: FLUMAZENIL 0.1 MG/ML (5 mL VIAL) IV ONE (23:33)
[2020-04-19 23:51] LABS: Arterial Blood Carboxyhemoglob 1.1 % (0-1.5); Blood Gas Oxyhemoglobin 97.6 % (94-97); Blood O2 Saturation 99.6 % (92-98.5)
[2020-04-20] MEDS: PIPER/TAZO/NS 2.25gm 2.25 GM/50 ML BAG IVPB SCH ×3 (01:02→17:39)
[2020-04-20] MEDS ORDERED: ALBUMIN HUMAN 25% 100 ML IV ONE (02:47)
[2020-04-20] MEDS ORDERED: FUROSEMIDE 20 MG/ 2ML VIAL ONE (03:21)
[2020-04-20] MEDS ORDERED: ALBUMIN HUMAN 25% 50 ML IV ONE (03:22)
[2020-04-20] MEDS ORDERED: FUROSEMIDE 20 MG/ 2ML VIAL IV ONE (03:48)
[2020-04-20 04:59] LABS: Absolute Lymphocytes (CBC) 0.4 K/uL (0.7-4.9); Basophils % 0.6 % (0-1.3); Hematocrit 32.6 % (39.6-49.0); Lymphocytes % 2.4 % (15.3-44.8); MPV 9.6 fL (7.6-11.3); RBC Red Blood Cell Count 3.77 M/uL (4.33-5.43)
[2020-04-20 05:25] LABS: Potassium 5.4 mmol/L (3.5-5.1)
--- NOTE | 2020-04-20 06:07 | EKG ---
Test Date: 2020-04-19 Test Time: 23:32:03 Appointment Manager: RT MEASUREMENT RESULTS: Intervals: Rate: 99 CO: 222 QRSD: 104 QT: 378 QTc: 485 Wayne: P: 52 CO: 222 QRS: 42 T: 46 INTERPRETIVE STATEMENTS: Sinus rhythm with 1st degree AV block Cannot rule out Inferior infarct, age undetermined Abnormal ECG Compared to ECG 04/11/2020 14:19:56 First degree AV block now present Atrial premature complex(es) no longer present Ventricular premature complex(es) no longer present Myocardial infarct finding still present Electronically Signed On 04-20-20 06:07:10 [facility] by Santiago Perdomo
--- NOTE | 2020-04-20 07:11 | RAD REPORT ---
EXAM DESCRIPTION: RAD - Chest Single View - 04/19/2020 11:46 pm CLINICAL HISTORY: AMS unresponsive COMPARISON: April 19, 2020 TECHNIQUE: AP portable chest image was obtained 04/19/2020 11:46 pmin supine position a . FINDINGS: Lung volumes are low. New bilateral lung base opacification has developed. Central vascula ture is increased. Cardiomegaly is present increased slightly from comparison. No measurable pleural effusion and no pneumothorax. No acute bony abnormality seen. No acute aortic findings suspected. IMPRESSION: CHF/volume overload findings are evident and can be correlated with clinical presentatio n. Bilateral lung base opacification could represent pneumonia, aspiration or part of a failure/volume o verload pattern.
--- NOTE | 2020-04-20 07:33 | P.PN ---
Subjective Date of Service: 04/20/20 Primary Care Provider: None Chief Complaint: Congestive heart failure swollen left knee Subjective: No new changes Physical Examination - Vital Signs Temperature: 97.6 F Blood Pressure: 136/86 Pulse: 95 Respirations: 15 Pulse Ox (%): 98 - Physical Exam General: Alert, Oriented x3 HEENT: Atraumatic, Normocephalic Neck: Supple Respiratory: Clear to auscultation bilaterally Cardiovascular: Edema (left leg.) Gastrointestinal: Normal bowel sounds Integumentary: Erythema (left knee) Neurological: Normal speech, Cranial nerves 3-12 intact - Studies Medications List Reviewed: Yes Assessment And Plan - Plan Hyperkalemia-Potassium is still elevated at 5.4. Spirinolactone and KCl supplements have been held. We will continue to monitor closely. #CHF-Volume status acceptable at this time. Lasix dose held for concerns about his kidney function. #Ascites-Etiology is yet to be determined. consideration for right heart failure for now. we will continue routine monitoring for now. #Hypophosphatemia- replete. we will continue to monitor as needed. #Diarrhea-Prn immodium and cholestyramine on board. #ARY vs CKD stage 3-Creatinine is worsening at 2.7 today. we will continue routine monitoring. we will continue to avoid nephrotoxins and dose meds for eGFR. Cellulitis-empiric antibiotic of zosyn on board for now. Physician Review: Patient Assessed, Agree with Above Assessment and Plan
[2020-04-20] MEDS ORDERED: SOD POLYSTYREN SUL 15 GM/60 ML UCUP PO ONE (07:47)
[2020-04-20] MEDS: ENOXAPARIN 30 MG/0.3 ML SQ SCH (08:10)
[2020-04-20] MEDS: ENSURE ENLIVE 237 ML CAN PO SCH ×2 (08:11→21:36)
[2020-04-20] MEDS ORDERED: ENOXAPARIN 30 MG/0.3 ML SQ ONE (08:15)
[2020-04-20] MEDS ORDERED: SOD POLYSTYREN SUL 15 GM/60 ML UCUP ONE (08:15)
[2020-04-20] MEDS ORDERED: HYDROCORTISONE SUC 100 MG INJ ONE (08:29)
[2020-04-20] MEDS: HYDROCORTISONE SUC 100 MG INJ IV SCH (08:35)
--- NOTE | 2020-04-20 08:43 | RAD REPORT ---
EXAM DESCRIPTION: US - Abdomen Exam Complete - 04/20/2020 7:47 am CLINICAL HISTORY: abdominal distension COMPARISON: Abdomen Pelvis W Contrast dated 04/10/2020 FINDINGS: Gallbladder size is normal. Small gallbladder polyps identified along with sludge. No gall stones confirmed. No abnormal gallbladder wall thickening seen. Common bile duct is normal with no co mmon duct stone identified. The liver and spleen show no suspicious findings. The liver is 15 cm in maximum dimension. Spleen is 11 cm. The pancreas is obscured. No pancreatic abnormality seen on the April 10 CT study. No suspicious mass of either kidney. Benign-appearing renal cysts are present. No right-sided hydrone phrosis. Left kidney is not well visualized due to body habitus affects. Left pelvis and calices appe ar dilated on the prior CT study but without asymmetric or delayed function. Aorta and IVC are obscured. No abnormality seen on the prior study. Ascites is present similar to the April 10 study. IMPRESSION: Gallbladder sludge and small polyp seen. No gallstones or acute gallbladder finding. No focal liver or spleen finding. Pancreas is obscured but appeared unremarkable on the April 10 s tudy. Moderate ascites.
[2020-04-20] MEDS: CHOLESTYRAMINE/ASP 4 GM/PKT PO SCH ×2 (09:32→17:41)
[2020-04-20] MEDS: LACTOBACILLUS/ACIDOPHILUS TAB PO SCH ×3 (09:33→21:35)
--- NOTE | 2020-04-20 09:59 | P.PN ---
Subjective Date of Service: 04/19/20 Patient was a little confused today. Will review his medications and monitor his renal function closely. Have repeated a chest x-ray which showed some questionable infiltrates in the lower lobe. Patient is on Zosyn at this time. Knee pain is also improved. Patient's brother is at bedside and have updated him on patient's plan of care. He may need a medical power of senior attorney and he wants most of his issues discussed with his brother as well. CT of the head was negative. He just has some karen ventricular cyst which were present on prior imaging. MRCP did not reveal cholangitis. Do not know exactly what is causing the cirrhosis but most likely is cardiac in origin. Consulted Gastroenterology as well. Review of Systems 10-point ROS is otherwise unremarkable Physical Examination - Vital Signs Temperature: 97.6 F Blood Pressure: 136/86 Pulse: 95 Respirations: 15 Pulse Ox (%): 98 - Physical Exam General: Alert, In no apparent distress, Oriented x3, Confused Respiratory: Clear to auscultation bilaterally, Normal air movement Cardiovascular: Regular rate/rhythm, Normal S1 S2 Gastrointestinal: Normal bowel sounds, Soft and benign, No tenderness, No rebound, No guarding, Distended Musculoskeletal: No clubbing, Swelling Neurological: Normal gait, Normal strength at 5/5 x4 extr, Normal tone, Sensation intact, Cranial nerves 3-12 intact - Studies Medications List Reviewed: Yes Assessment & Plan - Problems (Diagnosis) (1) Cirrhosis of liver Current Visit: Yes Status: Acute (2) Diarrhea Current Visit: Yes Status: Acute (3) ARF (acute renal failure) Current Visit: Yes Status: Acute (4) Congestive heart failure Current Visit: Yes Status: Acute Qualifiers: Heart failure type: systolic (5) Pain, joint, knee, left Current Visit: Yes Status: Acute (6) Pleural effusion Current Visit: Yes Status: Acute (7) Cachexia associated with cardiac disease Current Visit: Yes Status: Acute (8) Leukocytosis Current Visit: Yes Status: Acute - Plan Plan: 1. MRCP did not reveal any cholangitis. GI consultation pending 2. Hepatitis profile and HIV are negative. Autoantibodies pending 3. Diarrhea has improved. Continue with Imodium and patient also on pro biotics. No leukocytes in the stool. Cultures have been negative 4. Patient continues to 3rd space a lot of fluid. We will repeat his chest x- ray. BNP is significantly elevated. Patient also with elevated JVP. He could have cardiac cirrhosis from his right-sided heart failure. Will discuss with Cardiology if patient needs further evaluation. Echo did show EF of 40%. 5. Knee pain is improved with colchicine and steroids. It is possible he had gout in the setting of acute renal insufficiency. Serum uric acid level was normal. 24 hr urine for uric acid was not obtained. Stop colchicine and weaning off of steroids 6. Continue with physical therapy 7. Will wean off the steroids at this time 8. May also need to do Doppler of the liver to evaluate for hepatic vein thrombosis. Patient does have a coagulopathy secondary to the liver disease so I would suspect this is unlikely 9. GI and DVT prophylaxis Discharge Plan: Home Plan to discharge in: Greater than 2 days - Advance Directives Does patient have a Living Will: No Does patient have a Durable POA for Healthcare: No - Code Status/Comfort Care Code Status: Full Code Physician Review: Patient Assessed, Agree with Above Assessment and Plan Critical Care: No Time Spent Managing PTS Care (In Minutes): 35
[2020-04-20] MEDS: CEFTRIAXONE/SWI 1gm 1 GM/10 ML SYR IV SCH (10:16)
--- NOTE | 2020-04-20 10:22 | RAD REPORT ---
EXAM DESCRIPTION: CT - Ct Stroke Brain Wo Cont - 04/20/2020 6:41 am ADDENDUM #[address] Artis 04/20/2020 0020 hours. Electronically signed by: Nancy Ramirez MD 04/20/2020 12:20 AM BOOK AUTHOR End of Addendum CLINICAL HISTORY: 64-year-old male with altered mental status. Unresponsive. COMPARISON: 04/19/2020. TECHNIQUE: CT brain without contrast. This exam was performed according to our departmental dose opt imization program which includes use of automated exposure control, adjustment of the mA and/or kV ac cording to patient size and/or use of iterative reconstruction technique. FINDINGS: Stable appearance of cystic type structures identified at the level of the frontal horn of the RIGHT lateral ventricle and adjacent to the body of the LEFT lateral ventricle, differential con siderations of which may include porencephalic cyst, neuroglial cyst or cystic type encephalomalacia following focal ischemia. The ventricles, sulci, and cisterns are symmetric and unremarkable. The myers-white matter different iation is preserved. There is no mass effect, midline shift, intra- or extra-axial fluid collection /acute hemorrhage. The osseous structures are unremarkable. The paranasal sinuses and mastoid air cells are clear. IMPRESSION: 1. No acute intracranial abnormalities. 2. CT is insensitive for early evaluation of acute stroke. If there is clinical concern for acute ischemia, an MRI may be considered. Electronically signed by: Nancy Ramirez MD 04/20/2020 12:15 AM BOOK AUTHOR Due to temporary technical issues with the PACS/Fluency reporting system, reports are being signed by the in house radiologist without review as a courtesy to ensure prompt reporting. The interpreting r adiologist is fully responsible for the content of the report.
[2020-04-20] MEDS ORDERED: CEFTRIAXONE/SWI 1gm 1 GM/10 ML SYR ONE (10:29)
[2020-04-20] MEDS ORDERED: NA CHLORIDE 0.9% 1,000 ML IV SCH (11:00)
[2020-04-20] MEDS ORDERED: HYDRALAZINE HCL 10 MG TABLET PO ONE (11:36)
[2020-04-20] MEDS: NA CHLORIDE 0.9% 1,000 ML IV SCH (12:06)
[2020-04-20] MEDS ORDERED: NA CHLORIDE 0.9% 1,000 ML ONE (12:20)
[2020-04-20] MEDS ORDERED: HYDRALAZINE HCL 10 MG TABLET ONE (12:20)
--- NOTE | 2020-04-20 17:31 | PN ---
Subjective: The patient is lying in bed. Was transferred to the ICU because of hypotension. Objective: Vital Signs: Temperature 98, pulse 103, blood pressure 109/64. No new changes in examin ation. Laboratory Data: Shows WBC 18,000, hemoglobin 10.9, platelets are 261. Chemistry shows sodium 135, potassium 5.4, chloride 95, bicarb 33, BUN 54, creatinine 2.7. Abdominal ultrasound done shows the p atient has a gallbladder sludge and a small polyp. No gallstones or acute gallbladder findings. No focal liver or spleen finding. Pancreas is obscured. Assessment And Plan: Persistent diarrhea and leukocytosis. Recommend to get tumor markers as the pa tieargelia has lost significant amount of weight. Prognosis is guarded. Continue current treatment with Rocephin and Zosyn. We will follow the patient as needed. NF/MODL Voice ID: [id number] Report ID: [id number]
[2020-04-20] MEDS: ISOSORBIDE DINIT 5 MG TAB PO SCH (21:35)
[2020-04-20] MEDS: HYDRALAZINE HCL 10 MG TABLET PO SCH (21:35)
[2020-04-21] MEDS: PIPER/TAZO/NS 2.25gm 2.25 GM/50 ML BAG IVPB SCH ×3 (01:57→17:26)
[2020-04-21 06:48] LABS: Protime INR 1.15
[2020-04-21 06:52] LABS: Absolute Lymphocytes (CBC) 0.5 K/uL (0.7-4.9); Basophils % 0.5 % (0-1.3); Hematocrit 33.6 % (39.6-49.0); Lymphocytes % 3.8 % (15.3-44.8); MPV 9.6 fL (7.6-11.3); RBC Red Blood Cell Count 3.89 M/uL (4.33-5.43)
--- NOTE | 2020-04-21 07:53 | P.PN ---
Subjective Date of Service: 04/22/20 Primary Care Provider: None Chief Complaint: Congestive heart failure swollen left knee Subjective: No new changes Physical Examination - Vital Signs Temperature: 98.4 F Blood Pressure: 105/62 Pulse: 108 Respirations: 16 Pulse Ox (%): 97 - Physical Exam General: Alert, Oriented x3 HEENT: Atraumatic, Normocephalic Neck: Supple Respiratory: Clear to auscultation bilaterally Cardiovascular: No edema, Regular rate/rhythm, Normal S1 S2 Gastrointestinal: Normal bowel sounds Musculoskeletal: Swelling (left knee.) Neurological: Normal speech, Cranial nerves 3-12 intact - Studies Medications List Reviewed: Yes Assessment And Plan - Plan Hyperkalemia-Potassium is 4.6 today. We will continue to monitor closely. supplements on hold. #CHF-Volume status acceptable at this time. Lasix dose held for concerns about his kidney function. #Ascites-Etiology is yet to be determined. consideration for right heart failure for now. we will continue routine monitoring for now. #Hypophosphatemia- replete. we will continue to monitor as needed. #Diarrhea-Prn immodium and cholestyramine on board. #ARY vs CKD stage 3-Creatinine is worsening at 3.0 today. we will continue routine monitoring. we will continue routine monitoring. we will continue to avoid nephrotoxins and dose meds for eGFR. Cellulitis-on empiric antibiotics for now. Physician Review: Patient Assessed, Agree with Above Assessment and Plan
[2020-04-21] MEDS: CHOLESTYRAMINE/ASP 4 GM/PKT PO SCH ×2 (08:00→20:45)
--- NOTE | 2020-04-21 08:00 | RAD REPORT ---
EXAM DESCRIPTION: RAD - Chest Single View - 04/21/2020 6:13 am CLINICAL HISTORY: pneumonia COMPARISON: April 19 TECHNIQUE: AP portable chest image was obtained 04/21/2020 6:13 am . FINDINGS: Lung volumes are low. Interstitial and alveolar opacification, worse in each base, have sh own no measurable improvement. Failure or volume overload could be masked in this setting. Cardiomega ly is present showing some improvement from the prior study. Vasculature remains prominent. No pneumothorax or enlarging pleural effusion. IMPRESSION: Bilateral lung parenchymal opacification showing no measurable improvement from April 19. Cardiomegaly appears improved.
[2020-04-21 08:04] LABS: Albumin 1.8 g/dL (3.4-5.0); Bilirubin Total 2.4 mg/dL (0.2-1.0); Folic Acid, (Folate) 7.1 ng/mL (3.1-17.5); Magnesium 2.3 mg/dL (1.8-2.4); Phosphorus 5.6 mg/dL (2.5-4.9); Potassium 4.6 mmol/L (3.5-5.1); Protein, Total 6.8 g/dL (6.4-8.2)
[2020-04-21] MEDS: ENSURE ENLIVE 237 ML CAN PO SCH ×2 (08:58→21:00)
[2020-04-21] MEDS: ISOSORBIDE DINIT 5 MG TAB PO SCH ×2 (09:00→21:00)
[2020-04-21] MEDS: HYDRALAZINE HCL 10 MG TABLET PO SCH ×2 (09:00→21:00)
[2020-04-21] MEDS: LACTOBACILLUS/ACIDOPHILUS TAB PO SCH ×3 (09:00→20:44)
[2020-04-21] MEDS: ENOXAPARIN 30 MG/0.3 ML SQ SCH (09:00)
[2020-04-21] MEDS: CEFTRIAXONE/SWI 1gm 1 GM/10 ML SYR IV SCH (09:03)
[2020-04-21] MEDS ORDERED: ALBUMIN HUMAN 25% 100 ML IV ONE ×2 (09:33→15:34)
--- NOTE | 2020-04-21 09:40 | P.PN ---
Subjective Date of Service: 04/20/20 Patient was confused last night but he is more awake and alert during the day. I went back to see EMR around 6:00 p.m. and patient was starting to get confused again. I believe he is having some sundowning. We have tried to treat his cardiac condition with diuretics along with cardiac meds. We started nitro and hydralazine. Reducing his cardiac pressures his cirrhosis has improved. He is supposed to get a paracentesis in the morning. Will also discuss with family regarding transfer. Family at this time is not aware if they want to go to [facility] or [facility]. They would prefer for him to go to [facility] but I believe he should go to a facility with a clay stain mixer. Renal function continues to worsen as well. Review of Systems 10-point ROS is otherwise unremarkable Physical Examination - Vital Signs Temperature: 98.5 F Blood Pressure: 108/69 Pulse: 108 Respirations: 18 Pulse Ox (%): 97 - Physical Exam General: Alert, In no apparent distress, Oriented x3, Confused Respiratory: Diminished, Crackles/rales Cardiovascular: Regular rate/rhythm, Normal S1 S2, Systolic murmur Gastrointestinal: Normal bowel sounds, Soft and benign, Non-distended, No tenderness Musculoskeletal: No clubbing, Swelling Neurological: Sensation intact, Cranial nerves 3-12 intact, Abnormal gait, Abnormal strength - Studies Medications List Reviewed: Yes Assessment & Plan - Problems (Diagnosis) (1) Cirrhosis of liver Current Visit: Yes Status: Acute (2) Diarrhea Current Visit: Yes Status: Acute (3) ARF (acute renal failure) Current Visit: Yes Status: Acute (4) Congestive heart failure Current Visit: Yes Status: Acute Qualifiers: Heart failure type: systolic (5) Pain, joint, knee, left Current Visit: Yes Status: Acute (6) Pleural effusion Current Visit: Yes Status: Acute (7) Cachexia associated with cardiac disease Current Visit: Yes Status: Acute (8) Leukocytosis Current Visit: Yes Status: Acute (9) Ascites of liver Current Visit: Yes Status: Acute - Plan Plan: 1. MRCP did not reveal any cholangitis. GI consultation appreciated. They believe that most likely this is cardiac cirrhosis and bite decreasing right ventricular pressures with cardiac medication and diuresing which should be able to improve patient's liver functioning. Patient's liver function test have actually improved over the last 24 hr. Hepatitis profile and HIV are negative. Autoantibodies pending 2. Patient's renal function continues to worsen. BUN is worsening as well. This may worsen his nutritional status. We do need to continue with diuresing. Continue albumin and tried improve his intravascular depletion. Encouraged intake as well. Holding on nephro toxic medications. Adjusting antibiotic dosing. 3. Diarrhea has improved. Continue with Imodium and patient also on probiotics. No leukocytes in the stool. Cultures have been negative 4. Patient continues to 3rd space a lot of fluid. We will repeat his chest x- ray. BNP is significantly elevated. JVP distention has decreased- Juan not as prominent as the last 48 hr. Suspecting cardiac cirrhosis from his right- sided heart failure. Spoke with Cardiology and they recommended hydralazine, Imdur, and diuresing. 5. Knee pain is improved with colchicine and steroids. Patient's range of motion has improved. Pain on palpation has much improved as well 6. Continue with physical therapy 7. Dc steroids for the left knee pain. 8. May also need to do Doppler of the liver to evaluate for hepatic vein thrombosis. Patient does have a coagulopathy secondary to the liver disease so I would suspect this is unlikely. Patient to get paracentesis. Spoke with Gastroenterology and they suspect that patient may have spontaneous bacterial peritonitis from is perforation that has resolved. Changed antibiotics around as well 9. GI and DVT prophylaxis - Advance Directives Does patient have a Living Will: No Does patient have a Durable POA for Healthcare: No - Code Status/Comfort Care Code Status: Full Code Physician Review: Patient Assessed, Agree with Above Assessment and Plan
--- NOTE | 2020-04-21 13:57 | RAD REPORT ---
EXAM DESCRIPTION: US - Paracentesis Proc Guidance - 04/21/2020 11:33 am CLINICAL HISTORY: Ascites COMPARISON: Ultrasound April 20, 2020 TECHNIQUE: The patient presents for ultrasound-guided paracentesis. The procedure, risks and altern atives were discussed with the patient in detail. Oral and written consent were obtained. Time out p rocedure was performed. The patient had no contraindicated allergy or medication history. PT, INR va lues within acceptable limits. Preliminary sonographic evaluation identified left lower quadrant access site. The skin and deeper t issues were anesthetized with 1 percent lidocaine. Under direct sonographic visualization, a paracen tesis catheter was advanced into the peritoneal cavity. Intraperitoneal placement was confirmed. Appr oximately 15 mL of ascites retained for requested laboratory studies. Large volume drainage was initi ated. Approximately 3 liters of ascites removed. At the conclusion of the procedure, catheter was withdrawn and a bandage placed at the puncture site. The patient was returned to the floor for postprocedure care. Albumin was to be administered using [facility] physician protocol. IMPRESSION: Ultrasound-guided diagnostic and therapeutic paracentesis as detailed.
--- NOTE | 2020-04-21 14:43 | EEG ---
CHART: [id number] TEST ID#: [id number] DATE OF STUDY: 04/21/2020 THE EEG WAS RECORDED PORTABLE IN THE PATIENT'S ROOM ON A 17 CHANNEL MACHINE. ELECTRODES WERE APPLIED IN THE USUAL MANNER USING THE INTERNATIONAL 10-20 SYSTEM. THE WAKING BACKGROUND RHYTHM IN THIS RECORD CONSISTS OF POORLY DEVELOPED AND POORLY ORGANIZED WAVES OF 5-6 HZ., IN A WIDE DISTRIBUTION WHICH ATTENUATE NORMALLY WITH EYE OPENING. LOW-VOLTAGE 15-18 HZ ACTIVITY MIXED WITH 1.5-3 HZ ACTIVITY IS EXPRESSED IN THE FRONTAL AND CENTRAL REGIONS. THERE ARE NO FOCAL OR LATERALIZING FEATURES. NO EPILEPTIFORM ACTIVITY APPEARS. SLEEP DID NOT OCCUR. HYPERVENTILATION WAS NOT PERFORMED. PHOTIC STIMULATION PRODUCED NO DRIVING BILATERALLY. IMPRESSION: THIS IS A MODERATELY ABNORMAL ELECTROCENCEPHALOGRAM DUE TO A MODERATELY SLOW BACKGROUND. THIS IS A NON-SPECIFIC FINDING INDICATING THE PRESENCE OF A MODERATE DIFFUSE DISTURBANCE IN CEREBRAL FUNCTION.
[2020-04-21 15:26] LABS: Appearance SLT. TURBID (CLEAR); Body Fluid Source PERITONEAL; Body Fluid WBC 342 /mm^3; Color of fluid Yellow (COLORLESS)
--- NOTE | 2020-04-21 17:04 | P.PN ---
Subjective Date of Service: 04/21/20 Primary Care Provider: None Chief Complaint: Sepsis of uncertain etiology, possible SBP vs infected b/ pleural effusions Subjective: Improving (WBC down from 18.2 to 14.5 with addition of Ceftriaxone and Questran. More alert and active. PT continues to decrease after diuresis helped diastolic CHF which is causing cardiac ascites. Admitted with large volume ascites, CHF with BNP > 175,000 and microperforation in abdomen on CT.) Review of Systems 10-point ROS is otherwise unremarkable General: Weakness, Malaise Neurological: Weakness, Confusion (mild) Physical Examination - Vital Signs Temperature: 97.6 F Blood Pressure: 102/57 Pulse: 108 Respirations: 18 Pulse Ox (%): 97 - Physical Exam General: Alert, In no apparent distress, Disheveled, Confused (mild) HEENT: Atraumatic, Normocephalic, PERRLA Neck: Supple Respiratory: Normal air movement Cardiovascular: Normal pulses Gastrointestinal: Soft and benign, No tenderness, No rebound, No guarding Neurological: Normal speech - Studies Medications List Reviewed: Yes Assessment And Plan - Current Problems (Diagnosis) (1) Abnormal CT of the abdomen Current Visit: Yes Status: Acute (2) Perforated abdominal viscus Current Visit: Yes Status: Acute (3) ARF (acute renal failure) Current Visit: Yes Status: Acute (4) Ascites of liver Current Visit: Yes Status: Acute (5) Cirrhosis of liver Current Visit: Yes Status: Acute (6) Congestive heart failure Current Visit: Yes Status: Acute Qualifiers: Heart failure type: systolic (7) Diarrhea Current Visit: Yes Status: Acute (8) Pleural effusion Current Visit: Yes Status: Acute - Plan REC: 1) continue IV antibiotics 2) continue Questran 3) await stool studies 4) await results of paracentesis done today Physician Review: Patient Assessed, Agree with Above Assessment and Plan Physician Review Additional Text: Assessment Diarrhea, weakness, ascites secondary to colitis complicated with intraperitoneal free air noted on CT scan without identifiable perforation etiology unknown, likely related to electrolyte dysfunction and acute on chronic systolic CHF, ejection fraction 40% with pulmonary hypertension noted Large bilateral pleural effusion with edema to the lower extremity, scrotal edema and ascites secondary to acute on chronic systolic CHF Paroxysmally atrial fibrillation now normal sinus rhythm Elevated troponin likely related to above, ischemic demand Elevated bilirubin suspect underlying liver disease Acute renal injury with electrolyte abnormalities including hypokalemia, hypophosphatemia, hypoalbumenia Moderate protein malnutrition Anemia likely of chronic disease Left knee pain with erythema suspect cellulitis Plan: -Volume status improving , now clinically dry -cr worsening to 1.7 - will reduce lasix to 20 mg daily po - hypoalbuminemia contributing to anasarca - follow r/o proteinuria if nephrotic syndrome r/o , will need doses of albumin - not classical for cardiorenal syndrome pattern -c/w empirical abx -renally dose vanco -potassium controlled , c/w aldactone and kcl
[2020-04-21] MEDS: NA CHLORIDE 0.9% 1,000 ML IV SCH (17:24)
[2020-04-21] MEDS ORDERED: HYDROCORTISONE SUC 100 MG INJ IV ONE (19:00)
[2020-04-21] MEDS ORDERED: HYDROCORTISONE SUC 100 MG INJ ONE (20:25)
[2020-04-21] MEDS ORDERED: WATER FOR INJ,STERILE 10 ML ONE (20:25)
[2020-04-21] MEDS ORDERED: CHOLESTYRAMINE/ASP 4 GM/PKT ONE (20:39)
[2020-04-21] MEDS ORDERED: LACTOBACILLUS/ACIDOPHILUS TAB ONE (20:39)
[2020-04-21] MEDS ORDERED: MIDODRINE HCL 5 MG TABLET ONE (20:44)
[2020-04-21] MEDS: MIDODRINE HCL 5 MG TABLET PO SCH (20:44)
[2020-04-21] MEDS ORDERED: ISOSORBIDE DINIT 5 MG TAB ONE (20:44)
--- NOTE | 2020-04-21 23:17 | CON ---
Date of Consultation: 04/19/2020 Reason For Consultation: Sepsis of unclear etiology with ascites, pleural effusion, diarrhea, and CT scan showing microperforation on admission on April 10 it appears. History Of Present Illness: The patient is a 64-year-old male, [facility] and [facility]. CT scan revealed a microperforation present with a large amount of ascites in the abdomen. There was intraperitoneal free air. The patient has been in the h ospital, finally came to our attention due to the large ascites and a white count of 18.9, polys of 9 4% with unclear etiology for the sepsis. No paracentesis has been performed yet. Etiology of the as cites is unclear. The patient has no history of fatty liver or hepatitis A, B, or C, or other chroni c diseases that would lead to his ascites. No Budd-Chiari has been noted on CT scans or other issues . He does have what appears to be diastolic dysfunction with moderate tricuspid regurgitation and so me pulmonary hypertension as well. PT, INR are elevated, consistent with possible cardiac ascites. Past Medical History: Significant for diastolic congestive heart failure with possible cirrhosis and muscle aches. Medications: In the hospital include Lovenox, dextrose, glucagon, hydralazine, Isordil, Lactinex, lo peramide, midodrine, Ensure, Zofran, Zosyn, simethicone, IV fluids normal saline. Since we have been called to see patient, we have added ceftriaxone and Questran. Physical Examination: Vital Signs: The patient is 5 foot 8, 114 pounds, BMI of 17.4. Temperature 98 degrees Fahrenheit, p ulse 99, respirations 17, blood pressure 109/64, O2 saturation 95%. General: He is a male. He had appearance such as a thin extremities, thin/gaunt face, apparently st ating his face is much thinner with protuberant abdomen and torso due to his ascites. HEENT: Normocephalic, atraumatic. Anicteric. Pupils equal, round, and reactive to light with muscl e wasting in the temples. Thin/gaunt face. Respirations: Decreased breath sounds in the bases, otherwise clear. Neck: Supple. No masses. Cardiac: Regular rate and rhythm. No gallops or rubs. Abdomen: Positive bowel sounds. Soft with distention from ascites. Positive fluid wave, dullness i n flanks. Somewhat taut ascites, but no pain. Extremities: No clubbing, cyanosis. Some mild edema of the lower extremities. Muscular wasting in the arms and legs. Neurologic: Alert and oriented x3. Grossly nonfocal. 5/5 motor sensation to light touch. Laboratory Data: The patient has a white count of 18.9, hemoglobin 11.9, hematocrit 36.3, MCV of 88, platelet count of 298, polys 94%, lymphocytes 2%, monocytes 4%. The patient has a PT of 13.5 down f rom 16.9 on the with an INR of 1.44 then, now the INR is 1.15. Sodium 134, potassium 5.5, chlor anne 196, bicarb 32, BUN of 44, creatinine of 2.53, glucose 108, calcium 8.4, phosphorus 5.9, magnesiu m 2.2, total bilirubin 3.9, AST of 27, ALT of 12, alkaline phosphatase 273. Ammonia less than 10. B -type natriuretic peptide elevated at greater than 175,000. Total protein 6.4, albumin 1.6. Urinaly sis with 1+ blood, 1+ protein, otherwise negative. Hepatitis A, B, C nonreactive on April 11. COVID-[address] abdomen and pelvis on April 10 revealed large volume ascites, free intraperitoneal air, presumed microperforation, an asarca noted as well. MRCP was negative on March 20, some slight ascites noted on that one as we ll. Impression: 1.Probable spontaneous bacterial peritonitis in the setting of sepsis of unclear etiology. White co unt of 18.9, polys of 94%. Negative blood cultures. The patient has bilateral pleural effusions. N o thoracentesis has been pursued as of yet. 2.Ascites, large amount on admission and decreased with time with diuresis, possible cardiac ascites . Left ventricular ejection fraction 42% on echocardiogram, moderate TR, and pulmonary hypertension present. Ammonia less than 10. He had a possible microperforation with air seen on a CT scan on adm ission as well. The patient probably had seeding of his fluid. He has improved markedly since diure sis and only has his PT/INR decreased with diuresis, which has helped his diastolic cardiac congestiv e heart failure/dysfunction and it has taken the pressure off his liver with improvement in his PT, I NR, and also probably help to treat this spontaneous bacterial peritonitis that is still present. 3.Diarrhea. Stool cultures are negative. O and P is pending. White cells are negative. 4.Diastolic congestive heart failure, possible cirrhosis, muscle wasting. 5.B-type natriuretic peptide is greater 175,000, renal failure, creatinine of 2.53. 6.Protein-calorie malnutrition. Albumin 1.6. Recommendations: 1.Add ceftriaxone. 2.Ultrasound-guided paracentesis with studies including cell count, Gram stain, cultures, total prot ein, albumin, amylase. 3.Continue IV Zosyn. 4.Consider thoracentesis. 5.Check PT, PTT. 6.Diastolic congestive heart failure therapy ongoing and continuing to improve. 7.Diuretics when able to be maintained since diastolic congestive heart failure and ascites. 8.Questran 2 packets at bedtime. 9.Further recommendations to follow. TAJ/DEE Voice ID: [id number] Report ID: [id number]
[2020-04-22] MEDS: PIPER/TAZO/NS 2.25gm 2.25 GM/50 ML BAG IVPB SCH ×3 (01:46→17:20)
[2020-04-22 05:34] LABS: Absolute Lymphocytes (CBC) 0.3 K/uL (0.7-4.9); Basophils % 0.4 % (0-1.3); Hematocrit 31.7 % (39.6-49.0); Lymphocytes % 2.3 % (15.3-44.8); MPV 9.6 fL (7.6-11.3); RBC Red Blood Cell Count 3.62 M/uL (4.33-5.43)
[2020-04-22 05:35] LABS: Protime INR 1.16
[2020-04-22 06:04] LABS: Bilirubin Total 2.7 mg/dL (0.2-1.0); Ferritin 224.6 ng/mL (26-388); Magnesium 2.2 mg/dL (1.8-2.4); Phosphorus 5.4 mg/dL (2.5-4.9); Protein, Total 6.3 g/dL (6.4-8.2)
[2020-04-22] MEDS ORDERED: CALCIUM GLUC 10% INJ 4.65 MEQ in NA CHLORIDE 0.9% 100 ML IV ONE (06:39)
[2020-04-22] MEDS ORDERED: D50W 25 GM/50 ML SYRINGE IV ONE (06:39)
[2020-04-22] MEDS ORDERED: INSULIN -REGULAR HUMAN 50 UNIT/0.5 ML ML IV ONE (06:42)
[2020-04-22] MEDS ORDERED: INSULIN -REGULAR HUMAN 50 UNIT/0.5 ML ML ONE (07:07)
[2020-04-22] MEDS ORDERED: CALCIUM GLUCONATE 1 GM IVPB 1 GM/50 ML BAG IV ONE (07:09)
[2020-04-22] MEDS ORDERED: D50W 50 ML IV ONE ×2 (07:10→07:11)
[2020-04-22] MEDS ORDERED: SODIUM BICARB 50 MEQ/50ML VIAL ONE (07:15)
--- NOTE | 2020-04-22 07:47 | P.PN ---
Subjective Date of Service: 04/22/20 Primary Care Provider: None Chief Complaint: Congestive heart failure swollen left knee Subjective: Worsening (has worsening potassium and creatinine level.) Physical Examination - Vital Signs Temperature: 98.4 F Blood Pressure: 105/62 Pulse: 108 Respirations: 16 Pulse Ox (%): 97 - Physical Exam General: Alert, Oriented x3 HEENT: Atraumatic, Normocephalic Neck: Supple Respiratory: Clear to auscultation bilaterally Cardiovascular: No edema, Regular rate/rhythm, Normal S1 S2 Gastrointestinal: Normal bowel sounds Musculoskeletal: Erythema (of left knee.), Tenderness Neurological: Normal speech, Cranial nerves 3-12 intact - Studies Medications List Reviewed: Yes Assessment And Plan - Plan Hyperkalemia-Potassium is worse today at 6.0. he has calcium gluconate, insulin with dextrose and sodium bicarb ordered. we will repeat labs later today. We will continue to monitor closely. If hyperkalemia persists, dialysis will be used as last resort for management of hyperkalemia. #CHF-Volume status acceptable at this time. Lasix dose held for concerns about his kidney function. #Ascites-Etiology is yet to be determined. consideration for right heart failure for now. we will continue routine monitoring for now. #Hypophosphatemia- replete. his phosphorus is now elevated. #Diarrhea-Prn immodium and cholestyramine on board. #ARY vs CKD stage 3-Creatinine is worsening at 3.4 today. we discussed possib ility of hemodialysis if this worsens. still deemed due to ischemic ATN as he has documented hypotensive episodes. Gentle hydration encouraged. midodrine on board. we will continue routine monitoring. we will continue to avoid nephrotoxins and dose meds for eGFR. Cellulitis-on empiric antibiotics for now. Physician Review: Patient Assessed, Agree with Above Assessment and Plan
[2020-04-22] MEDS ORDERED: NA CHLORIDE 0.9% 1,000 ML IV SCH (07:49)
[2020-04-22] MEDS ORDERED: SODIUM BICARB 50 MEQ/50ML VIAL IV ONE (08:00)
[2020-04-22] MEDS ORDERED: D50W 25 GM/50 ML VIAL IV PRN (08:00)
[2020-04-22] MEDS: CHOLESTYRAMINE/ASP 4 GM/PKT PO SCH ×2 (08:00→17:13)
[2020-04-22] MEDS: ENSURE ENLIVE 237 ML CAN PO SCH ×3 (09:00→21:00)
[2020-04-22] MEDS: HYDRALAZINE HCL 10 MG TABLET PO SCH ×2 (09:00→21:00)
[2020-04-22] MEDS: ENOXAPARIN 30 MG/0.3 ML SQ SCH (10:15)
[2020-04-22] MEDS: CEFTRIAXONE/SWI 1gm 1 GM/10 ML SYR IV SCH (10:17)
[2020-04-22] MEDS ORDERED: ENOXAPARIN 30 MG/0.3 ML SQ ONE (10:26)
[2020-04-22] MEDS ORDERED: CEFTRIAXONE/SWI 1gm 1 GM/10 ML SYR ONE (10:31)
[2020-04-22] MEDS: ISOSORBIDE DINIT 5 MG TAB PO SCH ×2 (10:54→21:16)
[2020-04-22] MEDS: LACTOBACILLUS/ACIDOPHILUS TAB PO SCH ×3 (10:54→21:15)
[2020-04-22] MEDS: MIDODRINE HCL 5 MG TABLET PO SCH ×3 (10:54→21:00)
[2020-04-22] MEDS ORDERED: ALBUMIN HUMAN 25% 100 ML IV ONE ×2 (16:33→16:34)
--- NOTE | 2020-04-22 17:23 | P.PN ---
Subjective Date of Service: 04/22/20 Primary Care Provider: None Chief Complaint: Sepsis of unclear etiology: possible SBP versus infection of b/ pleural eff Subjective: Improving (Suicidal ideation yesterday and to ICU; now back on floor [place]. WBC down from 18 to 14 level. Nephrology has restarted NS IVF at 60 cc/hour due to RF with increasing ascites again.) Review of Systems 10-point ROS is otherwise unremarkable General: Weakness, Malaise Neurological: Confusion (Improved. ) Physical Examination - Vital Signs Temperature: 97.5 F Blood Pressure: 128/77 Pulse: 104 Respirations: 18 Pulse Ox (%): 97 - Physical Exam General: Alert, In no apparent distress HEENT: Atraumatic, Normocephalic, PERRLA, EOMI Neck: Supple Respiratory: Normal air movement Cardiovascular: Normal pulses Gastrointestinal: Distended, Ascites Neurological: Normal speech - Studies Medications List Reviewed: Yes Assessment And Plan - Current Problems (Diagnosis) (1) Abnormal CT of the abdomen Current Visit: Yes Status: Acute (2) Perforated abdominal viscus Current Visit: Yes Status: Acute (3) ARF (acute renal failure) Current Visit: Yes Status: Acute (4) Ascites of liver Current Visit: Yes Status: Acute (5) Cirrhosis of liver Current Visit: Yes Status: Acute (6) Congestive heart failure Current Visit: Yes Status: Acute Qualifiers: Heart failure type: systolic (7) Diarrhea Current Visit: Yes Status: Acute (8) Pleural effusion Current Visit: Yes Status: Acute - Plan REC: 1) continue IV antibiotics 2) continue Questran 3) IV albumin & decrease / discontinue IVFs if possible (RF) Physician Review: Patient Assessed, Agree with Above Assessment and Plan Physician Review Additional Text: Assessment Diarrhea, weakness, ascites secondary to colitis complicated with intraperitoneal free air noted on CT scan without identifiable perforation etiology unknown, likely related to electrolyte dysfunction and acute on chronic systolic CHF, ejection fraction 40% with pulmonary hypertension noted Large bilateral pleural effusion with edema to the lower extremity, scrotal edema and ascites secondary to acute on chronic systolic CHF Paroxysmally atrial fibrillation now normal sinus rhythm Elevated troponin likely related to above, ischemic demand Elevated bilirubin suspect underlying liver disease Acute renal injury with electrolyte abnormalities including hypokalemia, hypophosphatemia, hypoalbumenia Moderate protein malnutrition Anemia likely of chronic disease Left knee pain with erythema suspect cellulitis Plan: -Volume status improving , now clinically dry -cr worsening to 1.7 - will reduce lasix to 20 mg daily po - hypoalbuminemia contributing to anasarca - follow r/o proteinuria if nephrotic syndrome r/o , will need doses of albumin - not classical for cardiorenal syndrome pattern -c/w empirical abx -renally dose vanco -potassium controlled , c/w aldactone and kcl
[2020-04-22] MEDS: carvediloL 3.125 MG TAB PO SCH (21:15)
[2020-04-23] MEDS: PIPER/TAZO/NS 2.25gm 2.25 GM/50 ML BAG IVPB SCH ×3 (00:16→16:37)
[2020-04-23] MEDS ORDERED: NA CHLORIDE 0.9% 1,000 ML IV SCH (01:00)
[2020-04-23] MEDS: carvediloL 3.125 MG TAB PO SCH ×2 (06:01→17:31)
[2020-04-23 06:06] LABS: Absolute Lymphocytes (CBC) 0.7 K/uL (0.7-4.9); Basophils % 0.4 % (0-1.3); Hematocrit 31.8 % (39.6-49.0); Lymphocytes % 5.7 % (15.3-44.8); MPV 10.6 fL (7.6-11.3); RBC Red Blood Cell Count 3.64 M/uL (4.33-5.43)
[2020-04-23 06:41] LABS: Albumin 1.9 g/dL (3.4-5.0); Bilirubin Total 2.2 mg/dL (0.2-1.0); Magnesium 2.2 mg/dL (1.8-2.4); Phosphorus 4.2 mg/dL (2.5-4.9); Potassium 3.4 mmol/L (3.5-5.1); Protein, Total 5.8 g/dL (6.4-8.2)
[2020-04-23 07:11] LABS: Blood Morphology Comment NOTED (NOT SEEN); Platelet Estimate ADEQ; Target Cells 1+; White Blood Cell Scan OK (OK)
[2020-04-23] MEDS ORDERED: POTASSIUM CL SA 10 MEQ TAB PO ONE (07:45)
[2020-04-23] MEDS: MIDODRINE HCL 5 MG TABLET PO SCH ×3 (09:00→20:42)
[2020-04-23] MEDS: ENSURE ENLIVE 237 ML CAN PO SCH ×4 (09:00→20:42)
[2020-04-23] MEDS: ISOSORBIDE DINIT 5 MG TAB PO SCH ×2 (09:05→20:40)
[2020-04-23] MEDS: LACTOBACILLUS/ACIDOPHILUS TAB PO SCH ×3 (09:05→20:40)
[2020-04-23] MEDS: HYDRALAZINE HCL 10 MG TABLET PO SCH ×2 (09:08→20:42)
[2020-04-23] MEDS: CHOLESTYRAMINE/ASP 4 GM/PKT PO SCH ×2 (09:08→16:32)
[2020-04-23] MEDS: ENOXAPARIN 30 MG/0.3 ML SQ SCH (09:08)
[2020-04-23] MEDS: CEFTRIAXONE/SWI 1gm 1 GM/10 ML SYR IV SCH (09:09)
--- NOTE | 2020-04-23 11:18 | P.PN ---
Subjective Date of Service: 04/23/20 Primary Care Provider: None Chief Complaint: Sepsis of unclear etiology: possible SBP versus infection of b/ pleural eff Subjective: Improving (WBC continues to decline from 14.9 to 12.0 and decreased % polys 93 to 90%. He has good mood this morning and energetic. Ascites increasing on IVFs but renal function improving. As long as CHF does not worsen too badly, should continue to improve.) Review of Systems 10-point ROS is otherwise unremarkable General: Weakness (Improved), Malaise Physical Examination - Vital Signs Temperature: 98.1 F Blood Pressure: 127/82 Pulse: 94 Respirations: 17 Pulse Ox (%): 97 - Physical Exam General: Alert, In no apparent distress, Oriented x3, Cooperative HEENT: Atraumatic, Normocephalic, PERRLA, EOMI Neck: Supple Respiratory: Normal air movement Cardiovascular: Normal pulses Gastrointestinal: No tenderness, No rebound, No guarding, Ascites Neurological: Normal speech - Studies Medications List Reviewed: Yes Assessment And Plan - Current Problems (Diagnosis) (1) Abnormal CT of the abdomen Current Visit: Yes Status: Acute (2) Perforated abdominal viscus Current Visit: Yes Status: Acute (3) ARF (acute renal failure) Current Visit: Yes Status: Acute (4) Ascites of liver Current Visit: Yes Status: Acute (5) Cirrhosis of liver Current Visit: Yes Status: Acute (6) Congestive heart failure Current Visit: Yes Status: Acute Qualifiers: Heart failure type: systolic (7) Diarrhea Current Visit: Yes Status: Acute (8) Pleural effusion Current Visit: Yes Status: Acute - Plan REC: 1) continue IV antibiotics 2) continue Questran 3) repeat IV albumin today 4) U/S guided paracentesis tomorrow with studies (cell count, gram stain, culture, total protein, albumin, amylase). Physician Review: Patient Assessed, Agree with Above Assessment and Plan Physician Review Additional Text: Assessment Diarrhea, weakness, ascites secondary to colitis complicated with intraperitoneal free air noted on CT scan without identifiable perforation etiology unknown, likely related to electrolyte dysfunction and acute on chronic systolic CHF, ejection fraction 40% with pulmonary hypertension noted Large bilateral pleural effusion with edema to the lower extremity, scrotal edema and ascites secondary to acute on chronic systolic CHF Paroxysmally atrial fibrillation now normal sinus rhythm Elevated troponin likely related to above, ischemic demand Elevated bilirubin suspect underlying liver disease Acute renal injury with electrolyte abnormalities including hypokalemia, hypophosphatemia, hypoalbumenia Moderate protein malnutrition Anemia likely of chronic disease Left knee pain with erythema suspect cellulitis Plan: -Volume status improving , now clinically dry -cr worsening to 1.7 - will reduce lasix to 20 mg daily po - hypoalbuminemia contributing to anasarca - follow r/o proteinuria if nephrotic syndrome r/o , will need doses of albumin - not classical for cardiorenal syndrome pattern -c/w empirical abx -renally dose vanco -potassium controlled , c/w aldactone and kcl
--- NOTE | 2020-04-23 11:32 | RAD REPORT ---
EXAM DESCRIPTION: RAD - Chest Single View - 04/23/2020 8:40 am CLINICAL HISTORY: pneumonia Chest pain. COMPARISON: Chest Single View dated 04/21/2020; Chest Single View dated 04/19/2020; Chest Single View dated 04/19/2020; Chest Single View dated 04/13/2020; Paracentesis Proc Guidance dated 04/21/2020 FINDINGS: Portable technique limits examination quality. Mild improvement is seen in bilateral pulmonary opacities since comparative study. The heart it is mi ldly enlarged in size. No displaced fractures. IMPRESSION: Mild improvement in lung aeration is seen since comparative study.
[2020-04-23] MEDS ORDERED: ALBUMIN HUMAN 25% 50 ML IV ONE ×2 (11:46→15:43)
--- NOTE | 2020-04-23 14:26 | P.PN ---
Subjective Date of Service: 04/23/20 Primary Care Provider: None Chief Complaint: Sepsis of unclear etiology: possible SBP versus infection of b/ pleural eff Subjective: No new changes, Improving Physical Examination - Vital Signs Temperature: 98.1 F Blood Pressure: 127/82 Pulse: 94 Respirations: 17 Pulse Ox (%): 97 - Physical Exam General: Alert, Oriented x3, Cooperative HEENT: Atraumatic, Normocephalic Neck: Supple Respiratory: Clear to auscultation bilaterally Cardiovascular: No edema, Regular rate/rhythm, Normal S1 S2 Gastrointestinal: Normal bowel sounds Musculoskeletal: Erythema (of left knee.) Neurological: Normal speech, Cranial nerves 3-12 intact - Studies Medications List Reviewed: Yes Assessment And Plan - Plan Hyperkalemia-Potassium is now improved at 3.4 after medical management yesterday. we will monitor closely. #CHF-Volume status acceptable at this time. Lasix dose held for concerns about his kidney function. #Ascites-Etiology is yet to be determined. consideration for right heart failure for now. we will continue routine monitoring for now. #Hypophosphatemia- replete. we will monitor. #Diarrhea-Prn immodium and cholestyramine on board. #ARY vs CKD stage 3-Creatinine is now improved at 2.8 after gentle hydration. we will continue gentle hydration and prn midodrine. we will continue routine monitoring. we will continue to avoid nephrotoxins and dose meds for eGFR. Cellulitis-on empiric antibiotics for now. Physician Review: Patient Assessed, Agree with Above Assessment and Plan
--- NOTE | 2020-04-23 15:37 | P.PN ---
Subjective Date of Service: 04/21/20 Patient still appears to be a little delirious this morning. He states he feels better than he did yesterday. He got a paracentesis as well and they removed about 5 L of fluid. Labs are pending. There was concern for spontaneous bacterial peritonitis. Continue with IV antibiotic therapy. We adjusted his cardiac meds as well. Renal function continues to gradually worsen. Spoke with patient and family about possible hemodialysis. Spoke to Nephrology and their concern is if kidney function does worsen then we may need to pursue that course. Patient may have hepatorenal syndrome. This could also be ATN from low blood pressure. Continuing to encourage his nutrition as well. Review of Systems Patient is confused and difficult to obtain. Physical Examination - Vital Signs Temperature: 98.1 F Blood Pressure: 127/82 Pulse: 94 Respirations: 17 Pulse Ox (%): 97 - Physical Exam General: Alert, Oriented x2, Delirious HEENT: Other (Cachectic with muscle wasting) Respiratory: Clear to auscultation bilaterally, Normal air movement Cardiovascular: Regular rate/rhythm, Normal S1 S2, Systolic murmur Gastrointestinal: Normal bowel sounds, Soft and benign, No rebound, No guarding, Distended, Ascites, Tenderness Musculoskeletal: No clubbing, Swelling Integumentary: Skin lesion, Erythema, Warmth, Other (Patient with bruising) Neurological: Normal tone, Sensation intact, Cranial nerves 3-12 intact - Studies Medications List Reviewed: Yes Assessment & Plan - Problems (Diagnosis) (1) Cirrhosis of liver Current Visit: Yes Status: Acute (2) Diarrhea Current Visit: Yes Status: Acute (3) ARF (acute renal failure) Current Visit: Yes Status: Acute (4) Congestive heart failure Current Visit: Yes Status: Acute Qualifiers: Heart failure type: systolic (5) Pain, joint, knee, left Current Visit: Yes Status: Acute (6) Pleural effusion Current Visit: Yes Status: Acute (7) Cachexia associated with cardiac disease Current Visit: Yes Status: Acute (8) Leukocytosis Current Visit: Yes Status: Acute (9) Ascites of liver Current Visit: Yes Status: Acute - Plan Plan: Continue with current plan of care at this time. Gentle hydration. Will start fluids at 30 cc an hr. Monitor for volume overload. Continue monitoring renal function as well as liver function testing. 1. MRCP did not reveal any cholangitis. GI consultation appreciated. 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 Patient's liver function test have actually improved over the last 24 hr. Hepatitis profile and HIV are negative. Autoantibodies pending 2. Patient's renal function continues to worsen. BUN is worsening as well. This may worsen his nutritional status. We do need to continue with diuresing. Continue albumin and tried improve his intravascular depletion. Encouraged intake as well. Holding on nephro toxic medications. Adjusting antibiotic dosing. 3. Diarrhea has improved. Continue with Imodium and patient also on probiotics. No leukocytes in the stool. Cultures have been negative 4. Patient continues to 3rd space a lot of fluid. We will repeat his chest x- ray. BNP is significantly elevated. JVP distention has decreased- Juan not as prominent as the last 48 hr. Suspecting cardiac cirrhosis from his right- sided heart failure. Spoke with Cardiology and they recommended hydralazine, Imdur, and diuresing. 5. Knee pain is improved with colchicine and steroids. Patient's range of motion has improved. Pain on palpation has much improved as well 6. Continue with physical therapy 7. Dc steroids for the left knee pain. 8. Patient does have a coagulopathy secondary to the liver disease so I would suspect this is unlikely. Patient to get paracentesis. Spoke with Gastroenterology and they suspect that patient may have spontaneous bacterial peritonitis from is perforation that has resolved. Changed antibiotics around as well 9. GI and DVT prophylaxis Discharge Plan: Home Plan to discharge in: Greater than 2 days - Advance Directives Does patient have a Living Will: No Does patient have a Durable POA for Healthcare: No - Code Status/Comfort Care Code Status: Full Code Physician Review: Patient Assessed, Agree with Above Assessment and Plan Critical Care: No Time Spent Managing PTS Care (In Minutes): 35
--- NOTE | 2020-04-23 15:43 | P.PN ---
Subjective Date of Service: 04/22/20 Patient renal function continues to worsen. Liver function has been stable. Spoke to patient and family regarding hemodialysis. They are willing to accept hemodialysis. Will continue to give patient additional vials of albumin. Patient did drop blood pressure yesterday; patient had ATN vs. hepatorenal syndrome. White blood cell count is stable. Patient still with confusion and cachexia. Continue with plan of care at this time Review of Systems 10-point ROS is otherwise unremarkable Physical Examination - Vital Signs Temperature: 98.1 F Blood Pressure: 127/82 Pulse: 94 Respirations: 17 Pulse Ox (%): 97 - Physical Exam General: Alert, In no apparent distress, Oriented x3 Respiratory: Crackles/rales Cardiovascular: Regular rate/rhythm, Normal S1 S2, Systolic murmur Gastrointestinal: Soft and benign, Non-distended, No tenderness, No rebound, No guarding Musculoskeletal: No clubbing, No swelling, No tenderness Neurological: Sensation intact, Cranial nerves 3-12 intact Lymphatics: No axilla or inguinal lymphadenopathy - Studies Medications List Reviewed: Yes Assessment & Plan - Problems (Diagnosis) (1) Cirrhosis of liver Current Visit: Yes Status: Acute (2) Diarrhea Current Visit: Yes Status: Acute (3) ARF (acute renal failure) Current Visit: Yes Status: Acute (4) Congestive heart failure Current Visit: Yes Status: Acute Qualifiers: Heart failure type: systolic (5) Pain, joint, knee, left Current Visit: Yes Status: Acute (6) Pleural effusion Current Visit: Yes Status: Acute (7) Cachexia associated with cardiac disease Current Visit: Yes Status: Acute (8) Leukocytosis Current Visit: Yes Status: Acute (9) Ascites of liver Current Visit: Yes Status: Acute - Plan Plan: 1. Spoke with family regarding hemodialysis. They will consider this at this time. Patient's renal function is worsening. LFTs are stable. No abdominal pain. Blood pressure stable and JVP has decreased. Encouraging intake. - Advance Directives Does patient have a Living Will: No Does patient have a Durable POA for Healthcare: No - Code Status/Comfort Care Code Status: Full Code Physician Review: Patient Assessed, Agree with Above Assessment and Plan
[2020-04-23] MEDS: LOPERAMIDE HCL 2 MG CAPSULE PO PRN (20:40)
[2020-04-24] MEDS: PIPER/TAZO/NS 2.25gm 2.25 GM/50 ML BAG IVPB SCH ×3 (00:38→17:46)
[2020-04-24] MEDS: carvediloL 3.125 MG TAB PO SCH ×2 (06:06→17:47)
[2020-04-24] MEDS ORDERED: POTASSIUM 25 MEQ EFFERV TAB PO ONE (06:47)
[2020-04-24 07:09] LABS: Absolute Lymphocytes (CBC) 0.2 K/uL (0.7-4.9); Basophils % 0.2 % (0-1.3); Hematocrit 32.4 % (39.6-49.0); Lymphocytes % 1.5 % (15.3-44.8); MPV 10.7 fL (7.6-11.3)
--- NOTE | 2020-04-24 07:23 | PN ---
Date of Progress Note: 04/22/2020 Subjective: Mr. Alarcon has been here since 04/12/2020. He had come in with free air in the peritoneum , ascites, renal failure, congestive heart failure, and has remained here in the hospital. He is on albuterol, Lovenox, Imdur, hydralazine, insulin, and antibiotics. A repeat echocardiogram on 020 revealed much worsening ejection fraction. His initial EF was 45% and the last ejection fraction of 20% to 25%. He has right ventricular dilatation, right atrial dilatation, left ventricular dilat ation with severe global hypokinesis. Patient has been treated for right-sided congestive heart fail ure, but I think we need to add left-sided congestive heart failure treatment. I am going to start h im on Coreg 3.125 mg b.i.d. He has been hyperkalemic and Aldactone has not been used, but his last p otassium was normal and I think we should consider Aldactone use. He has significant renal insuffici ency. His last creatinine was 2.84 and is not a candidate for heart catheterization at this point. I think it would be good to do a left and right heart catheterization to define his coronary anatomy and measure his pulmonary artery pressures once his kidney function has improved. Right now he is fe eling fairly well. His last O2 saturation was 97% on 3 L of nasal cannula. He is in sinus tachycard ia at 106. We can certainly increase the Coreg dose if he tolerates the low dose. He is not a gulshan date for MARTELL inhibitors or Entresto at this point. Nephrology is following. The case was discussed with Dr. Chamberlain. DONATO/DEE Voice ID: [id number] Report ID: [id number]
[2020-04-24 07:25] LABS: Albumin 1.9 g/dL (3.4-5.0); Bilirubin Total 2.3 mg/dL (0.2-1.0); Potassium 3.1 mmol/L (3.5-5.1); Protein, Total 5.6 g/dL (6.4-8.2)
--- NOTE | 2020-04-24 08:22 | P.PN ---
Subjective Date of Service: 04/23/20 Patient's lab data has finally started improving. Patient's renal function has improved from a creatinine of 3.0 yesterday to 2.8 today. Patient's liver function testing is improving as well. Patient clinically looks much better and was sitting up in bed when I walked into his room which she had not done during the past week. Family member is at bedside -his sister. He states that he found himself. She brought him something for lunch as well. I went back and checked on him anything sees able the think a little more clearly. His family has consider moving him to a tertiary care facility but [place] as they were at capacity. From Nephrology's point of view we will continue monitoring renal function. Consideration was given for hemodialysis, but his renal function keeps improving then we may not need to do this. Patient possibly had acute tubular necrosis from the hypotension that he had the last week. There was 2 different occasions where his blood pressure dropped into the 80s over 40s. One was earlier in the week on Friday. And then on Friday after his paracentesis his blood pressure dropped again. Patient does have a family history of Bright's disease which is related to glomerulonephritis. Consideration for renal biopsy in the future. Gastroenterology was on the case and they believe the liver abnormalities are related to right-sided heart failure. We did check for autoimmune antibodies which are pending as well. Antibiotic was adjusted to cover for spontaneous bacterial peritonitis as patient did have a perforation from unknown site on admission which along with his ascites probably resulted in spontaneous bacterial peritonitis. Cultures from the fluid collected 48 hours ago are pending. patient does continue to have diarrhea but he states that has improved from when he 1st was admitted when he was having 8-9 episodes daily. Now he is having 2-[address] Perdomo called me this evening and told me that patient's cardiac function had decreased quite substantially from the prior echocardiogram we did on 04/12. Patient now has significant right-sided heart failure with RV dilatation and right atrial dilatation along with an ejection fraction of approximately 20%. Patient also had moderate tricuspid regurgitation-seen on the last echo as well. Adjusted medications and patient is on hydralazine and nitro along with additional carvedilol. May need to add anticoagulation because of his poor cardiac functioning. Chest x-ray does show improvement on infiltrates that were seen on the prior chest x-ray. Neurologically, patient is thinking more clearly. Patient's electrolytes are normalizing. Urea level has also started improving. Nutritionally patient's appetite is still poor but has increased significantly over the last couple of days. His albumin level is still very low. We are encouraging him to drink shakes with his meals to increase his caloric consumption. Patient was a vegetarian and had been eating very well so surprisingly he has significant cardiac disease which may be related to a family history. Overall there has been significant improvement over the last 24-48 hours. We will continue to monitor patient closely during his hospitalization. Review of Systems 10-point ROS is otherwise unremarkable Physical Examination - Vital Signs Temperature: 97.6 F Blood Pressure: 111/63 Pulse: 97 Respirations: 18 Pulse Ox (%): 94 - Physical Exam General: Alert, In no apparent distress, Oriented x3 Neck: JVD distended ( Mildly distended comparatively from the last few days) Respiratory: Crackles/rales Cardiovascular: Regular rate/rhythm, Normal S1 S2, Systolic murmur Gastrointestinal: Normal bowel sounds, Soft and benign, Non-distended, No tenderness Musculoskeletal: No clubbing, No tenderness, Swelling Integumentary: Other ( bruising diffusely) Neurological: Sensation intact, Cranial nerves 3-12 intact, Abnormal gait, Abnormal strength - Studies Medications List Reviewed: Yes Assessment & Plan - Problems (Diagnosis) (1) Cirrhosis of liver Current Visit: Yes Status: Acute (2) Diarrhea Current Visit: Yes Status: Acute (3) ARF (acute renal failure) Current Visit: Yes Status: Acute (4) Congestive heart failure Current Visit: Yes Status: Acute Qualifiers: Heart failure type: systolic (5) Pain, joint, knee, left Current Visit: Yes Status: Acute (6) Pleural effusion Current Visit: Yes Status: Acute (7) Cachexia associated with cardiac disease Current Visit: Yes Status: Acute (8) Leukocytosis Current Visit: Yes Status: Acute (9) Ascites of liver Current Visit: Yes Status: Acute - Plan Plan: 1. Continue monitoring renal function and liver function testing. Monitor hemodynamics closely 2. Monitor nutritional status and encourage it increased protein consumption. 3. Start physical therapy and try to get patient out of bed and start building his strength back up. 4. Patient with cardiomyopathy with left-sided and right-sided heart failure. Patient with an ejection fraction of 20% as well as RV, LV, RA dilatation. Cardiac medications have been adjusted 5. cultures pending. Will monitor these closely as well. 6. patient may benefit from inpatient rehab especially with his cardiac disease. If this is not viable then he may go home with home health. I still believe he will need about 48-72 more hours in the hospital. Outpatient cardiac testing will also need to be done to evaluate the etiology of his left-sided heart failure along with monitoring his RV pressures. 7. GI and DVT prophylaxis Discharge Plan: Other Plan to discharge in: 72 Hours - Advance Directives Does patient have a Living Will: No Does patient have a Durable POA for Healthcare: No - Code Status/Comfort Care Code Status: Full Code Physician Review: Patient Assessed, Agree with Above Assessment and Plan Critical Care: No Time Spent Managing PTS Care (In Minutes): 45
--- NOTE | 2020-04-24 08:29 | ECHO ---
HEIGHT: 5 ft 8 in WEIGHT: 114 lb 10.246 oz DATE OF STUDY: 04/21/[address]: Gudelia Chamberlain MD 2-DIMENSIONAL: YES M.MODE: YES DOPPLER: YES COLOR FLOW: YES TDS: PORTABLE: DEFINITY: BUBBLE STUDY: DIAGNOSIS: RULE OUT WORSENING HEART FAILURE CARDIAC HISTORY: CATHERIZATION: NO SURGERY: NO PROSTHETIC VALVE: NO PACEMAKER: NO MEASUREMENTS (cm) DIASTOLIC (NORMALS) SYSTOLIC (NORMALS) IVSd (0.6-1.2) LA Diam (1.9-4.0) LVEF % LVIDd (3.5-5.7) LVIDs (2.0-3.5) %FS % LVPWd (0.6-1.2) Ao Diam (2.0-3.7) 2 DIMENSIONAL ASSESSMENT: RIGHT ATRIUM: DILATED LEFT ATRIUM: NORMAL RIGHT VENTRICLE: DILATED LEFT VENTRICLE: NORMAL SIZE TRICUSPID VALVE: NORMAL MITRAL VALVE: NORMAL PULMONIC VALVE: NORMAL AORTIC VALVE: NORMAL PERICARDIAL EFFUSION: NONE AORTIC ROOT: NORMAL LEFT VENTRICULAR WALL MOTION: SEVERE GLOBAL HYPOKINESIS DOPPLER/COLOR FLOW: MILD TRICUSPID REGURGITATION. NORMAL RIGHT VENTRICULAR SYSTOLIC PRESSURE. COMMENTS: SEVERE GLOBAL HYPOKINESIS. DILATED RIGHT ATRIUM AND RIGHT VENTRICLE. NO EFFUSION. MILD TRICUSPID REGURGITATION. NORMAL RIGHT VENTRICULAR SYSTOLIC PRESSURE. TECHNOLOGIST: TANA KAM
[2020-04-24] MEDS: HYDRALAZINE HCL 10 MG TABLET PO SCH ×2 (09:00→21:00)
[2020-04-24] MEDS: ENOXAPARIN 30 MG/0.3 ML SQ SCH (09:05)
[2020-04-24] MEDS: CEFTRIAXONE/SWI 1gm 1 GM/10 ML SYR IV SCH (09:05)
[2020-04-24] MEDS: CHOLESTYRAMINE/ASP 4 GM/PKT PO SCH ×2 (09:05→17:45)
[2020-04-24] MEDS: ISOSORBIDE DINIT 5 MG TAB PO SCH ×2 (09:06→22:26)
[2020-04-24] MEDS: ENSURE ENLIVE 237 ML CAN PO SCH ×3 (09:06→22:27)
[2020-04-24] MEDS: MIDODRINE HCL 5 MG TABLET PO SCH ×3 (09:07→22:40)
[2020-04-24] MEDS: LACTOBACILLUS/ACIDOPHILUS TAB PO SCH ×3 (09:07→22:26)
[2020-04-24] MEDS: LOPERAMIDE HCL 2 MG CAPSULE PO PRN ×2 (09:09→17:46)
[2020-04-24 09:11] LABS: Blood Morphology Comment NOT SEEN (NOT SEEN); Platelet Estimate ADEQ
--- NOTE | 2020-04-24 09:30 | P.PN ---
Subjective Date of Service: 04/24/20 Primary Care Provider: None Chief Complaint: Sepsis of unclear etiology: possible SBP versus infection of b/ pleural eff Subjective: No new changes, Improving Physical Examination - Vital Signs Temperature: 97.6 F Blood Pressure: 111/63 Pulse: 97 Respirations: 18 Pulse Ox (%): 94 - Physical Exam General: Alert, In no apparent distress, Oriented x3 HEENT: Atraumatic, Normocephalic Neck: Supple Respiratory: Clear to auscultation bilaterally Cardiovascular: Regular rate/rhythm, Normal S1 S2 Gastrointestinal: Normal bowel sounds Musculoskeletal: Erythema (left knee.) Neurological: Normal speech, Sensation intact, Cranial nerves 3-12 intact - Studies Medications List Reviewed: Yes Assessment And Plan - Plan Hyperkalemia-Potassium is now 3.1. we will replete and monitor closely. #CHF-Volume status acceptable at this time. Lasix dose held for concerns about his kidney function. #Ascites-Etiology is yet to be determined. consideration for right heart failure for now. we will continue routine monitoring for now. #Hypophosphatemia- replete. we will monitor. #Diarrhea-Prn immodium and cholestyramine on board. #ARY vs CKD stage 3-Creatinine is now improved at 2.67 after gentle hydration. we will continue gentle hydration and prn midodrine. we will continue routine monitoring. we will continue to avoid nephrotoxins and dose meds for eGFR. Cellulitis-on empiric antibiotics for now. Physician Review: Patient Assessed, Agree with Above Assessment and Plan
[2020-04-24] MEDS ORDERED: POTASSIUM CL SA 10 MEQ TAB PO ONE (16:00)
--- NOTE | 2020-04-24 17:35 | P.PN ---
Subjective Date of Service: 04/24/20 Primary Care Provider: None Chief Complaint: Sepsis of unclear etiology: possible SBP versus infection of b/ pleural eff Subjective: Other (Patient feels better.) Physical Examination - Vital Signs Temperature: 97.6 F Blood Pressure: 111/63 Pulse: 97 Respirations: 18 Pulse Ox (%): 94 - Physical Exam General: Alert, In no apparent distress, Cooperative, Cachectic HEENT: Atraumatic Neck: Supple Respiratory: Clear to auscultation bilaterally, Normal air movement Cardiovascular: Normal pulses, Regular rate/rhythm Gastrointestinal: No rebound, No guarding, Ascites Integumentary: Other (Muscle wasting to the upper lower extremities stable) Neurological: Normal speech, Normal strength at 5/5 x4 extr, Normal tone, Normal affect - Studies Medications List Reviewed: Yes Assessment & Plan Discharge Plan: LTAC Plan to discharge in: 24 Hours Physician Review Additional Text: Assessment & Plan - Problems (Diagnosis) (1) Cirrhosis of liver Current Visit: Yes Status: Acute (2) Diarrhea Current Visit: Yes Status: Acute (3) ARF (acute renal failure) Current Visit: Yes Status: Acute (4) Congestive heart failure Current Visit: Yes Status: Acute Qualifiers: Heart failure type: systolic (5) Pain, joint, knee, left Current Visit: Yes Status: Acute (6) Pleural effusion Current Visit: Yes Status: Acute (7) Cachexia associated with cardiac disease Current Visit: Yes Status: Acute (8) Leukocytosis Current Visit: Yes Status: Acute (9) Ascites of liver Current Visit: Yes Status: Acute Additional diagnosis peritonitis - Plan Plan: 1. Continue monitoring renal function and liver function testing. Monitor hemodynamics closely. Will discuss with nephrology on plan of care. Patient currently being evaluated for long-term acute care facility placement to continue antibiotic therapy and treatment. 2. Monitor nutritional status and encourage it increased protein consumption. 3. Start physical therapy and try to get patient out of bed and start building his strength back up. 4. Patient with cardiomyopathy with left-sided and right-sided heart failure. Patient with an ejection fraction of 20% as well as RV, LV, RA dilatation. Cardiac medications have been adjusted. Cardiology recommends to continue with carvedilol and to further adjust. 5. Patient remains on IV antibiotic therapy for peritonitis. Will discuss with GI. 6. Looking to pursue for long-term acute care facility placement to continue current regimen of care. Case discussed with patient and brother who is making decisions. Advanced care planning address in detail. Both agree on long-term acute care facility placement. Await approval. Time Spent Managing Pts Care (In Minutes): 55
--- NOTE | 2020-04-24 18:44 | PN ---
Subjective: The patient is lying in bed. No new complaints. Continued to have diarrhea. Objective: Vital Signs: Temperature 97, pulse 97, respirations 18, blood pressure 111/63. Lungs: Basal crackles. Heart: S1, S2. Regular. Abdomen: Hyperactive bowel sounds. Extremities: No edema. Muscle wasting noted. Laboratory Data: Shows WBC 14,000, hemoglobin 10.6, platelets are 227. Chemistry shows sodium 146, potassium 3.1, chloride 104, bicarb 33, BUN 70, creatinine 2.67, glucose is 175. Micro data, culture s are negative for blood. Assessment And Plan: 1.Persistent diarrhea secondary to gastroenteritis, liver cirrhosis, acute renal failure, congestive heart failure. Continue supportive care. 2.Cachectic and muscle wasting. 3.Leukocytosis and ascites. We will follow the patient as needed. NF/MODL Voice ID: [id number] Report ID: [id number]
[2020-04-25 01:36] VITALS: BP 112/67; TEMP 97.5
[2020-04-25] MEDS: PIPER/TAZO/NS 2.25gm 2.25 GM/50 ML BAG IVPB SCH (01:36)
[2020-04-25 01:49] VITALS: O2SAT 95
[2020-04-25] MEDS ORDERED: NA CHLORIDE 0.9% 250 ML ONE (05:02)
[2020-04-25 05:32] LABS: Magnesium 2.1 mg/dL (1.8-2.4); Phosphorus 5.1 mg/dL (2.5-4.9); Potassium 3.4 mmol/L (3.5-5.1)
--- NOTE | 2020-04-25 06:29 | P.PN ---
Subjective Date of Service: 04/25/20 Primary Care Provider: None Chief Complaint: Sepsis of unclear etiology: possible SBP versus infection of b/ pleural eff Shanell mayberry called around 544. Case discussed with agustín Manley. Patient had been doing well. Blood pressure systolic around 80s around 534. 250 cc bolus given. Shanell mayberry called at 5:44 a.m.. Physical Examination - Vital Signs Temperature: 97.5 F Blood Pressure: 112/67 Pulse: 98 Respirations: 20 Pulse Ox (%): 96 - Physical Exam Other Physical/Emotional Findings: Patient - Studies Medications List Reviewed: Yes Assessment & Plan Physician Review Additional Text: Impression: Hypotension with PEA, ventricular fib, asystole status post CPR with intubation, multiple attempts of resuscitation, patient Acute on chronic systolic heart failure, EF 20% with RV/LV/RA dilatation and cardiomyopathy Diarrhea, weakness, ascites complicated with colitis with intraperitoneal free air, etiology unknown with subsequent bacterial peritonitis due to suspected microperforation of bowel Ascites etiology likely related to cardiac disease Cachexia with severe protein malnutrition with hypoalbuminemia Acute on chronic renal failure stage 4 Anemia likely of chronic disease Atrial fibrillation Plan: Shanell mayberry called due to hypotension around 544. CPR was started. This was after patient had low blood pressure and given 250 cc bolus at around 5:34 a.m.. Patient went into PEA, ventricular fib, asystole. During the course of his CPR, patient was intubated. He was given several rounds of epinephrine and other medications included calcium, bicarbonate. I was able to get in contact with brother who had medical power of county attorney during the course of CPR. He wanted to continue with CPR as long as possible. After multiple attempts CPR was not successful. Patient around 615. Suspect abnormalities related to his underlying systolic heart failure with EF of 20% and cardiomyopathy complicated with his severe protein malnutrition, suspected bacterial peritonitis, acute on chronic renal failure stage 4, anemia of chronic disease and atrial fibrillation. Case discussed in detail with brother after unsuccessful CPR. Time Spent Managing Pts Care (In Minutes): 55
--- NOTE | 2020-04-25 06:41 | P.DS ---
Admission Date: 04/10/20 Discharge Date: 04/25/20 Primary Care Provider: None Disposition: Discharge Condition: Reason for Admission: Diarrhea Consultations: Surgery-Dr. Key Cardiology-Dr. Chu/Dr. Perdomo GI-Dr. Costa Orthopedics-Dr. Goodman ID-Dr. Perrin Pulmonary-Dr. Smiley Nephrology-Dr. Wilsonogun Procedures: Medical problem list: Hypotension with PEA, ventricular fib, asystole status post CPR with intubation, multiple attempts of resuscitation, patient Acute on chronic systolic heart failure, EF 20% with RV/LV/RA dilatation and cardiomyopathy Diarrhea, weakness, ascites complicated with colitis with intraperitoneal free air, etiology unknown with subsequent bacterial peritonitis due to suspected microperforation of bowel Ascites etiology likely related to cardiac disease Cachexia with severe protein malnutrition with hypoalbuminemia Acute on chronic renal failure stage 4 with severe electrolyte abnormalities including hypokalemia Anemia likely of chronic disease Atrial fibrillation Brief History of Present Illness: 64-year-old male with questionable history of CHF presents emergency department for generalized weakness and diarrhea. Patient reports that since Friday he has had a significant amount of frequent diarrhea without mucus blood or pus. Patient reporting weakness. Patient had been taking Lasix intermittently for retention of fluid. In the ER patient was evaluated. Severe electrolyte abnormalities including potassium 2.0 phosphorus level 1.8, sodium 138., creatinine 1.46 GFR 48 were noted. AST and ALT normal but total bili is 3.6 and direct bili is 3.0. Pro calcitonin elevated at 4.41 white blood cell count was 12.8. Troponin initially 0.22 D-dimer was elevated. CT scan revealed revealed large bilateral pleural effusions with partial atelectasis of each lower lobe, and CT abdomen pelvis revealed intraperitoneal free air with no identified site of perforation. Large volume ascites with prominent wall thickening throughout much of the bowel wall most pronounced in the sigmoid colon. General surgery was called for intraperitoneal free air. Due to severe electrolyte abnormalities and intraperitoneal free air patient would require ICU or IMU level of care. Emergency department attempted transferred to [facility], at [facility] [[email or web address]], [facility] who were all at capacity for ICU/ IMU and declined transfer. Patient was eventually admitted for further evaluation and treatment. Hospital Course: Patient admitted for diarrhea weakness and ascites. Hospitalization was complex. During the course of his stay the patient was treated for suspected colitis due to the intraperitoneal free air. Unclear etiology was known at that time. Patient was initially treated for colitis. C diff culture was negative. Blood, stool, and urine cultures also negative. Patient was initially evaluated by multiple specialists including Cardiology, Nephrology, and orthopedics. His colitis appeared to be improved. Significant electrolyte abnormalities were also address initially during his stay including hypokalemia. Suspected CHF was addressed early in his stay. Upon further evaluation of his cardiac status the patient had acute on chronic systolic heart failure. Initial ejection fraction was around 40%. Repeat echocardiogram showed ejection fraction around 20% with dilated right ventricle, left ventricle and right atrium. Cardiomyopathy also noted. Patient also had atrial fibrillation. Patient was given treatment for CHF and atrial fibrillation. Autoimmune workup unremarkable. Cardiac intervention for further evaluation could not be done due to his chronic renal failure. Patient's nutritional status was also addressed in detail. Patient had severe protein malnutrition with low albumin. Eventually the patient was evaluated further by GI and Infectious Disease due to the ascites. Autoimmune workup was unremarkable. Hepatitis panel and HIV panel unremarkable. GI adjusted antibiotics due to possible bacterial peritonitis. His condition seemed to improve after paracentesis. Cultures were negative. GI suspected ascites related to cardiac disease. Overall his condition condition appeared to improve slowly. Patient also treated for hypotension and confusion. Patient given Midodrine. Blood pressure stabilized with medication. Tumor markers unremarkable for possible underlying cancer. Patient was being considered for long-term acute care [facility]. His progress was slow. Unfortunately, Code shawanda called due to hypotension around 544 today. CPR was started. This was after patient had low blood pressure and given 250 cc bolus at around 5:34 a.m.. Patient went into PEA, ventricular fib, asystole. During the course of his CPR, patient was intubated. He was given several rounds of epinephrine and other medications included calcium, bicarbonate. I was able to get in contact with brother who had medical power of sailing master during the course of CPR. He wanted to continue with CPR as long as possible. After multiple attempts CPR was not successful. Patient around 615. September he rest in peace. Patient was high risk for abnormal arrhythmia. Patient with underlying acute on chronic systolic heart failure with ejection fraction 20% with cardiomyopathy, atrial fibrillation, colitis with intraperitoneal free air etiology unknown with probable bacterial peritonitis. Other medical problems during his stay included ascites likely related to cardiac disease, severe protein malnutrition with low albumin, acute on chronic renal failure stage 4, anemia chronic disease and atrial fibrillation. Vital Signs/Physical Exam: Temp Pulse Resp BP Pulse Ox 97.5 F 98 H 20 112/67 96 04/25/20 06:38 04/25/20 06:38 04/25/20 06:38 04/25/20 06:38 04/25/20 06:38 Patient Other Physical/Emotional Findings: Patient Laboratory Data at Discharge: WBC 14.4 K/uL (4.3-10.9) H D 04/24/20 06:48 Hgb 10.6 g/dL (13.6-17.9) L 04/24/20 06:48 Hct 32.4 % (39.6-49.0) L 04/24/20 06:48 Plt Count 227 K/uL (152-406) 04/24/20 06:48 PT 13.6 SECONDS (9.5-12.5) H 04/22/20 05:03 INR 1.16 04/22/20 05:03 APTT 27.3 SECONDS (24.3-36.9) 04/22/20 05:03 Sodium 142 mmol/L (136-145) 04/25/20 03:35 Potassium 3.4 mmol/L (3.5-5.1) L 04/25/20 03:35 BUN 66 mg/dL (7-18) H 04/25/20 03:35 Creatinine 2.69 mg/dL (0.55-1.3) H 04/25/20 03:35 Glucose 187 mg/dL (74-106) H 04/25/20 03:35 Uric Acid 5.5 mg/dL (3.5-7.2) 04/14/20 05:17 Phosphorus 5.1 mg/dL (2.5-4.9) H 04/25/20 03:35 Magnesium 2.1 mg/dL (1.8-2.4) 04/25/20 03:35 Total Bilirubin 2.3 mg/dL (0.2-1.0) H 04/24/20 06:48 AST 21 U/L (15-37) 04/24/20 06:48 ALT 20 U/L (12-78) 04/24/20 06:48 Alkaline Phosphatase 280 U/L (45-117) H 04/24/20 06:48 Troponin I 0.20 ng/mL (0.0-0.045) H 04/10/20 23:34 LDL Cholesterol Direct 71 mg/dL (100-129) L 04/10/20 15:50 Amylase 5 U/L (25-115) L 04/10/20 15:50 Lipase 36 U/L (73-393) L 04/23/20 05:51 Home Medications: NK [No Home Meds] 04/11/20 Followup: NONE,NONE [Primary Care Provider] - Time spent managing pt's care (in minutes): 55
[2020-04-25] MEDS ORDERED: EPINEPHrine 1 MG/10 ML SYR IV ONE (08:38)
[2020-04-25] MEDS ORDERED: LIDOCAINE 100 MG/5 ML SYRINGE IV ONE (08:38)
--- NOTE | 2020-04-27 18:02 | P.PN ---
Subjective Date of Service: 04/17/20 Spoke with patient in detail about his current clinical status. He is just upset that he just does not know what is wrong with him. He has never been like this before. He has lost lot of weight and is having persistent diarrhea that he cannot explain. He does not know why his strength is so diminished. Review of Systems 10-point ROS is otherwise unremarkable Physical Examination - Vital Signs Temperature: 97.5 F Blood Pressure: 112/67 Pulse: 98 Respirations: 20 Pulse Ox (%): 96 - Physical Exam General: Alert, In no apparent distress, Oriented x3 Respiratory: Diminished, Crackles/rales Cardiovascular: Regular rate/rhythm, Normal S1 S2, Systolic murmur Gastrointestinal: Normal bowel sounds, Soft and benign, Non-distended, No tenderness Musculoskeletal: No clubbing, Swelling Neurological: Sensation intact, Normal affect, Abnormal strength Lymphatics: No axilla or inguinal lymphadenopathy Other Physical/Emotional Findings: Patient - Studies Medications List Reviewed: Yes Assessment & Plan - Problems (Diagnosis) (1) Diarrhea Status: Acute (2) ARF (acute renal failure) Status: Acute (3) Congestive heart failure Status: Acute Qualifiers: Heart failure type: systolic (4) Pain, joint, knee, left Status: Acute (5) Pleural effusion Status: Acute (6) Cachexia associated with cardiac disease Status: Acute (7) Leukocytosis Status: Acute - Plan Plan: 1. Antidiarrheal; Gently hydrate 2. Monitor nutritional status and encourage increased protein consumption. 3. Start physical therapy and try to get patient out of bed and start building his strength back up. 4. CHF with EF of 40%; continue with diuresing 5. Cultures pending. Will monitor these closely as well. 6. Acute hepatitis profile; inflammatory markers as well 7. GI and DVT prophylaxis Speak with cardiology and Will try to get gastroenterology consultation as well. We will go ahead and get nephrology assistance as well Discharge Plan: Home Plan to discharge in: Greater than 2 days - Advance Directives Does patient have a Living Will: No Does patient have a Durable POA for Healthcare: No - Code Status/Comfort Care Code Status: Full Code Physician Review: Patient Assessed, Agree with Above Assessment and Plan Critical Care: No Time Spent Managing PTS Care (In Minutes): 35
== END 2020-04-25 08:39 | disposition expired | DRG 391 ==
LOC: ER 13:53 → ERHOLD 21:40 → 2ND 04-13 13:50 → ERHOLD 04-20 01:29 → 2ND 04-20 15:14 → ERHOLD 04-21 18:06 → 2ND 04-22 13:57
PROVIDERS: ADMIT Family Medicine; ATTEND Family Medicine
PROC: 0W9G3ZZ Drainage of Peritoneal Cavity, Percutaneous Approach (ICD-10-PCS; 2020-04-21)
PROC: 5A12012 Performance of Cardiac Output, Single, Manual (ICD-10-PCS; principal; 2020-04-25)
DX: K52.9 Noninfective gastroenteritis and colitis, unspecified (principal); E43 Unspecified severe protein-calorie malnutrition; I50.23 Acute on chronic systolic (congestive) heart failure; A41.9 Sepsis, unspecified organism; N17.0 Acute kidney failure with tubular necrosis; K65.2 Spontaneous bacterial peritonitis; Z68.1 Body mass index [BMI] 19.9 or less, adult; R18.8 Other ascites; I24.8 Other forms of acute ischemic heart disease; L03.116 Cellulitis of left lower limb; F05 Delirium due to known physiological condition; I42.8 Other cardiomyopathies; N18.4 Chronic kidney disease, stage 4 (severe); K76.1 Chronic passive congestion of liver; K66.8 Other specified disorders of peritoneum; E83.39 Other disorders of phosphorus metabolism; E87.6 Hypokalemia; E88.09 Other disorders of plasma-protein metabolism, not elsewhere classified; D63.8 Anemia in other chronic diseases classified elsewhere; E80.7 Disorder of bilirubin metabolism, unspecified; I48.0 Paroxysmal atrial fibrillation; I27.20 Pulmonary hypertension, unspecified; N50.89 Other specified disorders of the male genital organs; E87.5 Hyperkalemia; I49.01 Ventricular fibrillation; R00.0 Tachycardia, unspecified; Z60.2 Problems related to living alone
CPT/HCPCS: 36415; 49083; 70450; 71045; 71275; 73700; 74018; 74177; 74181; 76700; 80048; 80053; 80074; 80076; 80202; 81003; 81015; 82040; 82043; 82105; 82140; 82150; 82533; 82550; 82553; 82607; 82728; 82746; 82805; 82947; 83540; 83605; 83615; 83690; 83735; 83880; 84100; 84132; 84145; 84155; 84165; 84439; 84443; 84466; 84484; 84550; 85025; 85379; 85610; 85730; 86021; 86038; 86140; 86225; 86255; 86850; 86900; 86901; 87040; 87045; 87046; 87070; 87086; 87088; 87177; 87209; 87324; 87389; 87449; 89050; 89055; 93005; 93306; 94760; 95816; 97110; 97112; 97116; 97161; 97530; 99285; C9113; J0171; J0610; J0692; J0696; J1170; J1610; J1650; J1720; J1940; J2543; J3370; J3480; J7030; J7040; J7042; J7050; P9047; Q9967; U0003